=== PATIENT | male | born 1950 | race Caucasian/White ===

== ENCOUNTER 2016-07-21 11:46 | Inpatient (IN) | payer MEDICARE, OTHER ==
[~2016-07-21] VITALS: Ht 177.8 cm; Wt 181.7 kg
[2016-07-21] VITALS (8 sets, daily range): BP systolic 120–149; BP diastolic 62–94; PULSE 88–109; RESP 20–22; TEMP 98.3; O2SAT 98–100
--- NOTE | 2016-07-21 13:21 | PD ---
HPI Chief Complaint: Respiratory Symptoms Time Seen by Provider: 13:21 Travel History International Travel<30 days: No Contact w/Intl Traveler<30days: No Traveled to known affect area: No History of Present Illness HPI 65-year-old male with a history of CHF, hypertension, A. fib on Coumadin, CKD, CAD, ID and stroke who has chronic hypoxemic respiratory failure on 10 L BiPAP is brought to the emergency department from his long-term facility for evaluation of worsening shortness of breath, decreased oxygen saturation and weight gain. The patient states that his oxygen saturation is usually above 95 % but has been between 90-95% over the past 2 days. The patient states that he usually goes to [facility] and was admitted there recently for similar complaints. States that he requested to come to our hospital today because "that other hospital sucks." He denies chest pain, lightheadedness, dizziness, numbness or tingling, abdominal pain, vomiting, diarrhea. The patient is morbidly obese and is bed bound. His daughter is POA. No other complaints. PFSH Past Medical History Hx Anticoagulant Therapy: Yes (COUMADIN) Cardiovascular Problems: Yes Respiratory: Yes (COPD) Social History Tobacco Use: No Allergies-Medications (Allergen,Severity, Reaction): Coded Allergies: Heparin (Verified Allergy, Unknown, 07/21/16) Uncoded Allergies: CEFEPIME (Allergy, Unknown, 07/21/16) UNKNOWN Reported Meds & Prescriptions Reported Meds & Active Scripts Active Reported Fleet Enema Rectal (Sodium Phosphates Rectal) 7-19 Gm/118 Ml Enem 118 Ml RECTAL HS PRN Dulcolax Supp (Bisacodyl) 10 Mg Supp 10 Mg RECTAL DIRECTED PRN Milk of Magnesia Liq (Magnesium Hydroxide) 400 Mg/5 Ml Susp 30 Ml PO DIRECTED PRN Zostrix Arthritis Pain Relief Topical (Capsaicin) 0.025% Cream 1 Applic TOPICAL EACH SHIFT Xanax (Alprazolam) 0.5 Mg Tab 0.5 Mg PO BID Warfarin 4 Mg Tab 4 Mg PO HS Torsemide 20 Mg Tab 20 Mg PO DAILY Oxycodone (Oxycodone HCl) 5 Mg Tab 5 Mg PO Q6H PRN Metoprolol Tartrate 25 Mg Tab 12.5 Mg PO BID Levothyroxine (Levothyroxine Sodium) 25 Mcg Tab 25 Mcg PO DAILY Xopenex Neb (Levalbuterol HCl) 1.25 Mg/3 Ml Neb 1.25 Mg NEB TID NEB Tamsulosin (Tamsulosin HCl) 0.4 Mg Cap 0.4 Mg PO DAILY Vibramycin (Doxycycline Hyclate) 100 Mg Cap 100 Mg PO BID Colace (Docusate Sodium) 100 Mg Cap 100 Mg PO BID Dulcolax DR (Bisacodyl) 5 Mg Tabdr 10 Mg PO HS PRN Review of Systems Except as stated in HPI: all other systems reviewed are Neg Physical Exam Narrative GENERAL: Morbidly obese male in no acute distress. SKIN: Warm and dry. HEAD: Normocephalic and atraumatic. EYES: No injection, drainage, or hyphema noted. PERRLA. EOMI. ENT: No nasal drainage noted. Oropharynx is clear. NECK: Supple and the trachea is midline. CARDIOVASCULAR: Regular rate and rhythm. RESPIRATORY: Bipap in place. No accessory muscle use. Breath sounds decreased throughout. GASTROINTESTINAL: Abdomen is soft, non-tender, and nondistended. MUSCULOSKELETAL: Edematous extremities. No erythema or warmth. Patient has full range of motion without any signs of neurovascular compromise. NEUROLOGICAL: Awake, alert, and oriented. Normal speech and gait. Cranial nerves are grossly intact. Data Data Last Documented VS Vital Signs Date Time Temp Pulse Resp B/P Pulse Ox O2 Delivery O2 Flow Rate FiO2 07/21/16 14:11 100 BiPAP 10 07/21/16 14:00 88 22 132/62 07/21/16 12:56 98.3 Orders Electrocardiogram (07/21/16 ) Complete Blood Count With Diff (07/21/16 13:17) Comprehensive Metabolic Panel (07/21/16 13:17) B-Type Natriuretic Peptide (07/21/16 13:17) Act Partial Throm Time (Ptt) (07/21/16 13:17) Prothrombin Time / Inr (Pt) (07/21/16 13:17) Magnesium (Mg) (07/21/16 13:17) Troponin I (07/21/16 13:17) Arterial Blood Gas (Abg) (07/21/16 13:17) Iv Access Insert/Monitor (07/21/16 13:17) Ecg Monitoring (07/21/16 13:17) Oximetry (07/21/16 13:17) Oxygen Administration (07/21/16 13:17) Chest, Single Ap (07/21/16 13:17) Sodium Chloride 0.9% Flush (Ns Flush) (07/21/16 13:30) Ct Thorax/ Chest Wo Iv Contras (07/21/16 14:28) Lactic Acid Sepsis Protocol (07/21/16 15:58) Blood Culture (07/21/16 15:58) Piperacil-Tazo 4.5 Gm Premix (Zosyn 4.5 (07/21/16 15:58) Levofloxacin 750 Mg Premix Inj (Levaquin (07/21/16 16:00) Vancomycin Inj (Vancomycin Inj) (07/21/16 16:00) Alprazolam (Xanax) (07/21/16 21:00) Docusate Sodium (Colace) (07/21/16 21:00) Levothyroxine (Synthroid) (07/22/16 06:00) Metoprolol Tartrate (Lopressor) (07/21/16 21:00) Tamsulosin (Flomax) (07/22/16 09:00) Torsemide (Demadex) (07/22/16 09:00) Warfarin (Coumadin) (07/21/16 16:30) Furosemide Inj (Lasix Inj) (07/21/16 16:30) Pill Splitter (Pill Splitter) (07/21/16 16:30) Warfarin (Coumadin) Pt Teach (Coumadin B (07/21/16 16:45) Sodium Chloride 0.9% Flush (Ns Flush) (07/21/16 16:30) Sodium Chloride 0.9% Flush (Ns Flush) (07/21/16 21:00) Admit Order (Ed Use Only) (07/21/16 16:31) Piperacil-Tazo 4.5 Gm Premix (Zosyn 4.5 (07/21/16 22:00) Levofloxacin 750 Mg Premix Inj (Levaquin (07/22/16 09:00) Albuterol-Ipratropium Neb (Duoneb Neb) (07/21/16 22:00) Albuterol-Ipratropium Neb (Duoneb Neb) (07/21/16 16:30) Acetaminophen (Tylenol) (07/21/16 16:30) Ondansetron Inj (Zofran Inj) (07/21/16 16:30) Admit To Inpatient (07/21/16 ) Vital Signs (Adult) CHANTELLE.Q4H (07/21/16 16:25) Activity Oob Ad Nicole (07/21/16 16:25) Intake + Output CHANTELLE.Q8H (07/21/16 16:25) ^ Regrader / Telemetry (07/21/16 16:25) Diet Heart Healthy (07/21/16 Dinner) Resp Bipap / Cpap Non Invas Vt (07/21/16 ) Basic Metabolic Panel (Bmp) (07/22/16 06:00) Complete Blood Count With Diff (07/22/16 06:00) Inpatient Certification (07/21/16 ) Acetamin-Hydrocod 325-5 Mg ([place] 5-325 (07/21/16 16:45) Labs Laboratory Tests Test 07/21/16 07/21/16 07/21/16 13:30 13:36 14:10 B-Type Natriuretic Peptide 469 PG/ML Blood Gas Puncture Site LT RADIAL Blood Gas Patient Temperature 98.6 Blood Gas HCO3 22 mmol/L Blood Gas Base Excess -2.8 mmol/L Blood Gas Oxygen Saturation 94 % Arterial Blood pH 7.36 Arterial Blood Partial 40 mmHg Pressure CO2 Arterial Blood Partial 114 mmHG Pressure O2 Arterial Blood Oxygen Content 16.6 Vol % Arterial Blood 2.8 % Carboxyhemoglobin Arterial Blood Methemoglobin 1.8 % Blood Gas Hemoglobin 12.4 G/DL Oxygen Delivery Device PT ON HOME CPAP Blood Gas Liter Flow 10 L/M White Blood Count 9.2 TH/MM3 Red Blood Count 4.37 MIL/MM3 Hemoglobin 11.9 GM/DL Hematocrit 38.2 % Mean Corpuscular Volume 87.4 FL Mean Corpuscular Hemoglobin 27.3 PG Mean Corpuscular Hemoglobin 31.2 % Concent Red Cell Distribution Width 17.4 % Platelet Count 61 TH/MM3 Mean Platelet Volume 9.3 FL Neutrophils (%) (Auto) 82.1 % Lymphocytes (%) (Auto) 9.7 % Monocytes (%) (Auto) 6.0 % Eosinophils (%) (Auto) 1.5 % Basophils (%) (Auto) 0.7 % Neutrophils # (Auto) 7.6 TH/MM3 Lymphocytes # (Auto) 0.9 TH/MM3 Monocytes # (Auto) 0.6 TH/MM3 Eosinophils # (Auto) 0.1 TH/MM3 Basophils # (Auto) 0.1 TH/MM3 CBC Comment AUTO DIFF Differential Comment AUTO DIFF CONFIRMED Platelet Estimate LOW Platelet Morphology Comment NORMAL Ovalocytes 1+ Prothrombin Time 17.5 SEC Prothromb Time International 1.6 RATIO Ratio Activated Partial 28.1 SEC Thromboplast Time Sodium Level 141 MEQ/L Potassium Level 4.4 MEQ/L Chloride Level 110 MEQ/L Carbon Dioxide Level 22.0 MEQ/L Anion Gap 9 MEQ/L Blood Urea Nitrogen 48 MG/DL Creatinine 1.50 MG/DL Estimat Glomerular Filtration 47 ML/MIN Rate Random Glucose 109 MG/DL Calcium Level 8.1 MG/DL Magnesium Level 2.2 MG/DL Total Bilirubin 0.7 MG/DL Aspartate Amino Transf 11 U/L (AST/SGOT) Alanine Aminotransferase 28 U/L (ALT/SGPT) Alkaline Phosphatase 114 U/L Troponin I 0.05 NG/ML Total Protein 5.8 GM/DL Albumin 2.5 GM/DL [facility] Medical Decision Making Medical Screen Exam Complete: Yes Emergency Medical Condition: Yes Differential Diagnosis CHF exacerbation versus acute on chronic respiratory failure versus pneumonia versus pleural effusion versus CRISTOBAL Narrative Course 65-year-old male presents to the emergency department for evaluation of shortness of breath and weight gain. Patient is afebrile. He is initially tachycardic with a heart rate of 109 bpm, heart rate is normalized to 88 bpm. Otherwise vital signs are stable. He is on BiPAP and his oxygen saturation is at 100%. IV access is obtained, labs drawn and sent. CBC shows mild anemia with low platelets 69. This is consistent with prior records from June. CMP shows renal sufficiency within elevated creatinine of 1.50. Prior comparison from records shows creatinine was 4.25 06/29/16. Troponin is 0.05. BNP 465. Chest x-ray shows left lower lobe opacity. CT of the chest shows left lower lobe consolidation with bilateral pleural effusions. The patient was recently admitted to the hospital and therefore this is a hospital-acquired pneumonia. The patient is given Zosyn, vancomycin and Levaquin. He has remained stable here in the ED. He'll be admitted to medicine service. Of note, I did speak with the patient who states he is a DNR. He told me that he does not wish to be intubated or to have chest compressions. He states he would allow medical resuscitation such as vasopressors. I discussed the case with my attending physician Dr. Gallegos who is aware of the patients history, physical examination findings, and treatment plan. Physician Communication Physician Communication My attending physician Dr. Gallegos spoke with Dr. Wisdom [facility] who agrees to admit the patient to his service. Diagnosis Primary Impression: Hospital-acquired pneumonia Additional Impression: Chronic respiratory failure Qualified Code: J96.11 - Chronic respiratory failure with hypoxia Admitting Information Admitting Physician Requests: Admit Rebecca Beach Jul 21, 2016 13:21
[2016-07-21] MEDS ORDERED: SODIUM CHLORIDE 0.9% FLUSH 5 ML FLUSH IVF PRN (13:30)
[2016-07-21 13:47] LABS: BLOOD GAS BASE EXCESS -2.8 mmol/L (-2-2); BLOOD GAS CARBOXYHEMOGLOBIN 2.8 % (0-4); BLOOD GAS HCO3 22 mmol/L (22-26); BLOOD GAS METHEMOGLOBIN 1.8 % (0-2); BLOOD GAS O2 HGB SATURATION 94 % (90-100); BLOOD GAS OXYGEN CONTENT 16.6 Vol % (12.0-20.0); BLOOD GAS PCO2 40 mmHg (38-42); BLOOD GAS PO2 114 mmHG (61-120); BLOOD GAS TOTAL HGB 12.4 G/DL (12.0-16.0); CRITICAL VALUE NO; DRAW SITE LT RADIAL; LITER FLOW 10 L/M; NUMBER OF ARTERIAL PUNCTURES 1; OXYGEN DEVICE PT ON HOME CPAP; STAT YES; TEMP CORR TO 98.6
--- NOTE | 2016-07-21 13:58 | RADRPT ---
EXAM DATE/TIME: 07/21/2016 13:33 [facility] COMPARISON: No previous studies available for comparison. INDICATIONS : Short of breath. MEDICAL HISTORY : None. SURGICAL HISTORY : None. ENCOUNTER: Initial ACUITY: 1 day PAIN SCORE: 0/10 LOCATION: Bilateral chest FINDINGS: A single view of the chest demonstrates cardiomegaly. Bilateral mostly basilar airspace disease, left greater than right. No significant effusion. No pneumothorax. CONCLUSION: 1. Cardiomegaly with consolidation of the left lung base. Subsegmental airspace disease right lung ba se. No prior study for comparison. Raoul Gasca MD on July 21, 2016 at 13:55 Board Certified Radiologist. This report was verified electronically.
[2016-07-21 14:31] LABS: AUTOMATED NEUTROPHIL # 7.6 TH/MM3 (1.8-7.7); BASOPHIL # 0.1 TH/MM3 (0-0.2); BASOPHIL % 0.7 % (0.0-2.0); EOSINOPHIL # 0.1 TH/MM3 (0-0.4); EOSINOPHIL % 1.5 % (0.0-4.0); HEMATOCRIT 38.2 % (39.0-51.0); LYMPH % 9.7 % (9.0-44.0); LYMPHOCYTE # 0.9 TH/MM3 (1.0-4.8); MEAN CELL VOLUME 87.4 FL (80.0-100.0); MEAN CORPUSCULAR HEMOGLOBIN 27.3 PG (27.0-34.0); MEAN CORPUSCULAR HGB CONC 31.2 % (32.0-36.0); NEUT % 82.1 % (16.0-70.0); PLATELET COUNT 61 TH/MM3 (150-450); RED BLOOD COUNT 4.37 MIL/MM3 (4.50-5.90); RED CELL DISTRIBUTION WIDTH 17.4 % (11.6-17.2); WHITE BLOOD COUNT 9.2 TH/MM3 (4.0-11.0)
[2016-07-21 14:34] LABS: HEMO FLAGS AUTO DIFF
[2016-07-21 14:39] LABS: APTT (PATIENT) 28.1 SEC (24.3-30.1); INTERNATIONAL NORMALIZED RATIO 1.6 RATIO; PROTHROMBIN TIME - PATIENT 17.5 SEC (9.8-11.6)
[2016-07-21 14:42] LABS: ANION GAP 9 MEQ/L (5-15); AST (GOT) 11 U/L (15-37); BLOOD UREA NITROGEN 48 MG/DL (7-18); CHLORIDE 110 MEQ/L (98-107); GLOMERULAR FILTRATION RATE 47 ML/MIN (>89); MAGNESIUM 2.2 MG/DL (1.5-2.5); POTASSIUM 4.4 MEQ/L (3.5-5.1); SODIUM (NA) 141 MEQ/L (136-145)
[2016-07-21] MEDS ORDERED: TORS20TA PO (14:43)
[2016-07-21] MEDS ORDERED: LEVA3NEB12 NEB (14:43)
[2016-07-21] MEDS ORDERED: LEVO25TA4 PO (14:43)
[2016-07-21] MEDS ORDERED: TAMS0.4C4 PO (14:43)
[2016-07-21] MEDS ORDERED: ALPR.5 PO (14:43)
[2016-07-21] MEDS ORDERED: COLA100C3 PO (14:43)
[2016-07-21] MEDS ORDERED: WARF-20 PO (14:43)
[2016-07-21] MEDS ORDERED: DULC5TAB PO (14:43)
[2016-07-21] MEDS ORDERED: OXYC-392 PO (14:43)
[2016-07-21] MEDS ORDERED: ZOSTCRE TOPICAL (14:43)
[2016-07-21] MEDS ORDERED: VIBR100C PO (14:43)
[2016-07-21] MEDS ORDERED: METO25TA3 PO (14:43)
[2016-07-21] MEDS ORDERED: DULC10SU3 RECTAL (14:46)
[2016-07-21] MEDS ORDERED: MILKSUS PO (14:46)
[2016-07-21 14:47] LABS: ALKALINE PHOSPHATASE 114 U/L (45-117); ALT (GPT) 28 U/L (12-78); TOTAL BILIRUBIN ADULT 0.7 MG/DL (0.2-1.0)
[2016-07-21] MEDS ORDERED: FLEEENE3 RECTAL (14:48)
[2016-07-21 15:17] LABS: PLATELET ESTIMATE SMEAR LOW (NORMAL); PLATELET MORPHOLOGY NORMAL (NORMAL); SCAN/DIFF AUTO DIFF CONFIRMED
[2016-07-21 15:18] LABS: OVALOCYTES 1+ (NORMAL)
--- NOTE | 2016-07-21 15:51 | RADRPT ---
EXAM DATE/TIME: 07/21/2016 15:15 [facility] COMPARISON: No previous studies available for comparison. INDICATIONS : Short of breath. RADIATION DOSE: 31.93 CTDIvol (mGy) MEDICAL HISTORY : Chronic obstructive pulmonary disease. Congestive heart failure. Hypertension. Renal failure. SURGICAL HISTORY : None. ENCOUNTER: Initial ACUITY: 1 day PAIN SCALE: 0/10 LOCATION: chest TECHNIQUE: Volumetric scanning of the chest was performed. Using automated exposure control and adjustment of t he mA and/or kV according to patient size, radiation dose was kept as low as reasonably achievable to obtain optimal diagnostic quality images. FINDINGS: The exam demonstrates small bilateral effusions. There is consolidation throughout the left lower lob e. The examination also demonstrates a 3.0 x 1.9 cm pleural-based mass on the left as well. The heart is enlarged. No significant hilar or mediastinal adenopathy is evident. There is advanced a therosclerotic plaquing in the coronary arteries. The limited portions of upper abdomen visualized demonstrate fluid surrounding the spleen in the left upper quadrant. There degenerative changes throughout the spine. CONCLUSION: 1. Dense consolidation of the left lower lobe. 2. Small bilateral effusions. 3. 3.0 x 1.9 cm pleural-based nodule on the left. This is indeterminate by CT imaging. No hilar or me diastinal adenopathy is seen. 4. There is fluid in the left upper quadrant surrounding the spleen. The spleen appears mildly enlarg ed. 5. Advanced cardiomegaly. Girma Metzger MD on July 21, 2016 at 15:45 Board Certified Radiologist. This report was verified electronically.
[2016-07-21] MEDS ORDERED: PIPERACIL-TAZO 4.5 GM PREMIX 100 ML IV STA (15:58)
[2016-07-21] MEDS ORDERED: LEVOFLOXACIN 750 MG PREMIX INJ 150 ML IV ONE (16:00)
[2016-07-21] MEDS ORDERED: VANCOMYCIN INJ 1,000 MG in SODIUM CHLOR 0.9% 250 ML INJ 250 ML IV ONE (16:00)
[2016-07-21] MEDS ORDERED: PILL SPLITTER OTHER PRN (16:30)
[2016-07-21] MEDS ORDERED: ONDANSETRON HCL 4 MG/2 ML VIAL IV PRN (16:30)
[2016-07-21] MEDS ORDERED: ACETAMINOPHEN 325 MG TAB PO PRN (16:30)
[2016-07-21] MEDS ORDERED: FUROSEMIDE 40 MG/4 ML VIAL IV PUSH ONE (16:30)
--- NOTE | 2016-07-21 18:36 | HHI.HP ---
HPI Service [facility] Hospitalists Primary Care Physician Non-Staff Admission Diagnosis Hospital Acquired Pneumonia, Chronic Respiratory Failure Diagnoses: Chief Complaint: SOB, weight gain Travel History International Travel<30 Days: No Contact w/Intl Traveler <30 Da: No Traveled to Known Affected Are: No History of Present Illness 65-year-old male with history of CAD with stents, atrial fibrillation on Coumadin, CHF, HTN, CKD stage III, NINO on BiPAP at night, chronic respiratory failure on home O2, presents from [facility] for worsening shortness of breath , weight gain, and decreased O2 saturations. Patient was recently admitted to [facility] on 06/29/16 for pneumonia and acute renal failure. The patient reports he was treated with IV antibiotics, he refused dialysis for his acute renal failure, and he was discharged back to [facility]. He overall has felt well however states over the past 3 weeks he has noticed worsening weight gain, previously weighed 365, now over 400 pounds. He started to notice worsening shortness of breath 2 days ago. Denies any fevers/chills, cough, or chest pains. His O2 saturation at the [facility] was around 90% over the past few days, when normally it is >95%. He asked to be admitted to [facility] [place] as he does not want to go to [facility]. Since his arrival to the ER, CXR showed LLL opacity, CT chest showed LLL consolidation with b/l pleural effusions. He has been given IV Zosyn, Vanco, and Levaquin for hospital acquired pneumonia. He has been placed on his own bipap with O2 saturations now 100%. The patient denies any diagnosis of lung disease, when asked about COPD, he states "not really". He has only been seeing a attendant sales at [facility], does not recall the name. He also does not know who is airplane dispatcher is because he states it keeps changing. Review of Systems Constitutional: COMPLAINS OF: Weight gain, DENIES: Diaphoretic episodes, Fever , Chills, Dizziness Endocrine: DENIES: Polydipsia, Polyuria, Polyphagia Eyes: DENIES: Blurred vision, Vision loss, Double Vision Ears, nose, mouth, throat: DENIES: Throat pain, Hoarseness, Odynophagia Respiratory: COMPLAINS OF: Shortness of breath, DENIES: Cough, Wheezing Cardiovascular: COMPLAINS OF: Lower Extremity Edema, DENIES: Chest pain, Palpitations, Orthopnea Gastrointestinal: DENIES: Abdominal pain, Constipation, Diarrhea, Nausea, Vomiting Genitourinary: DENIES: Urinary frequency, Urgency, Dysuria Musculoskeletal: COMPLAINS OF: Back pain, DENIES: Neck pain Integumentary: DENIES: Pruritus, Rash Hematologic/lymphatic: DENIES: Bruising, Lymphadenopathy Immunologic/allergic: DENIES: Eczema, Urticaria Neurologic: DENIES: Abnormal gait, Headache, Localized weakness, Paresthesias Psychiatric: DENIES: Anxiety, Depression Past Family Social History Past Medical History CAD with stents CHF HTN CKD stage III NINO on BiPAP at night chronic respiratory failure on home O2 Atrial fibrillation on coumadin Hypothyroidism Past Surgical History Cardiac catheterization with stent placement Colonoscopy 2 years ago Reported Medications Fleet Enema Rectal (Sodium Phosphates Rectal) 7-19 Gm/118 Ml Enem 118 Ml RECTAL HS PRN Dulcolax Supp (Bisacodyl) 10 Mg Supp 10 Mg RECTAL DIRECTED PRN Milk of Magnesia Liq (Magnesium Hydroxide) 400 Mg/5 Ml Susp 30 Ml PO DIRECTED PRN Zostrix Arthritis Pain Relief Topical (Capsaicin) 0.025% Cream 1 Applic TOPICAL EACH SHIFT Xanax (Alprazolam) 0.5 Mg Tab 0.5 Mg PO BID Warfarin 4 Mg Tab 4 Mg PO HS Torsemide 20 Mg Tab 20 Mg PO DAILY Oxycodone (Oxycodone HCl) 5 Mg Tab 5 Mg PO Q6H PRN Metoprolol Tartrate 25 Mg Tab 12.5 Mg PO BID Levothyroxine (Levothyroxine Sodium) 25 Mcg Tab 25 Mcg PO DAILY Xopenex Neb (Levalbuterol HCl) 1.25 Mg/3 Ml Neb 1.25 Mg NEB TID NEB Tamsulosin (Tamsulosin HCl) 0.4 Mg Cap 0.4 Mg PO DAILY Vibramycin (Doxycycline Hyclate) 100 Mg Cap 100 Mg PO BID Colace (Docusate Sodium) 100 Mg Cap 100 Mg PO BID Dul[address]ax [address] (Bisacodyl) 5 Mg Tabdr 10 Mg PO HS PRN Allergies: Coded Allergies: Heparin (Verified Allergy, Unknown, 07/21/16) Uncoded Allergies: CEFEPIME (Allergy, Unknown, 07/21/16) UNKNOWN Active Ordered Medications Current Medications Medications (Trade) Dose Ordered Sig/Olivia Route Start Time Stop Time Status Last Admin (NS Flush) 2 ml UNSCH PRN IVF 07/21/16 13:30 07/21/16 17:07 (Xanax) 0.5 mg BID PO 07/21/16 21:00 (Colace) 100 mg BID PO 07/21/16 21:00 (Synthroid) 25 mcg DAILY@06 PO 07/22/16 06:00 (Lopressor) 12.5 mg BID PO 07/21/16 21:00 (Flomax) 0.4 mg DAILY PO 07/22/16 09:00 (Demadex) 20 mg DAILY PO 07/22/16 09:00 (Coumadin) 4 mg DAILY@1600 PO 07/21/16 16:30 (Pill Splitter) 1 ea UNSCH PRN OTHER 07/21/16 16:30 (NS Flush) 2 ml UNSCH PRN IV FLUSH 07/21/16 16:30 IV Flush 2 ml 2 ml BID IV FLUSH 07/21/16 21:00 Piperacillin Sod/ Tazobactam Sod 100 ml @ 200 mls/hr Q6H IV 07/22/16 00:00 (Levaquin 750 Mg Premix Inj) 150 ml @ 100 mls/hr Q24H IV 07/22/16 17:00 (Tylenol) 650 mg Q4H PRN PO 07/21/16 16:30 (Zofran Inj) 4 mg Q6H PRN IV 07/21/16 16:30 (Hardy 5-325 Mg) 1 tab Q4H PRN PO 07/21/16 16:45 Family History Mother with heart disease, Father with unknown medical problems, Social History Prior tobacco use, smoked 1.5 PPD for 20+years, quit 20years ago Denies any alcohol or illicit drug use Has been mostly nonambulatory since last hospitalization in Jun 2016, previously was able to ambulate Physical Exam Vital Signs Vital Signs Date Time Temp Pulse Resp B/P Pulse Ox O2 Delivery O2 Flow Rate FiO2 07/21/16 14:11 100 BiPAP 10 07/21/16 14:11 100 BiPAP 10 07/21/16 14:00 88 22 132/62 100 BiPAP 10 07/21/16 13:00 22 100 BiPAP 10 07/21/16 12:56 98.3 109 20 127/78 99 Physical Exam GENERAL: Well-nourished, well-developed morbidly obese male patient in NAD. On Bipap. SKIN: Warm and dry. No rash. Anasarca. HEAD: Normocephalic. Atraumatic. EYES: Pupils equal and round. No scleral icterus. No injection or drainage. ENT: No nasal bleeding or discharge. Mucous membranes pink and moist. NECK: Supple. Trachea midline. Extremely large neck circumference. CARDIOVASCULAR: Regular rate and rhythm. S1, S2 noted. No murmur appreciated. RESPIRATORY: No accessory muscle use. Breath sounds diminished throughout. Breath sounds equal bilaterally. GASTROINTESTINAL: Abdomen soft, non-tender, nondistended. Normoactive bowel sounds x4. Lower abdominal edema. GENITOURINARY: diffuse scrotal edema. MUSCULOSKELETAL: No obvious deformities. 3+ bilateral lower extremity pitting edema. NEUROLOGICAL: Awake and alert. No obvious cranial nerve deficits. Motor grossly within normal limits. Moving all extremities spontaneously. Normal speech. PSYCHIATRIC: Appropriate mood and affect; insight and judgment normal. Laboratory Laboratory Tests Test 07/21/16 07/21/16 07/21/16 07/21/16 13:30 13:36 14:10 16:30 B-Type Natriuretic Peptide 469 Blood Gas Puncture Site LT RADIAL Blood Gas Patient Temperature 98.6 Blood Gas HCO3 22 Blood Gas Base Excess -2.8 Blood Gas Oxygen Saturation 94 Arterial Blood pH 7.36 Arterial Blood Partial 40 Pressure CO2 Arterial Blood Partial 114 Pressure O2 Arterial Blood Oxygen Content 16.6 Arterial Blood 2.8 Carboxyhemoglobin Arterial Blood Methemoglobin 1.8 Blood Gas Hemoglobin 12.4 Oxygen Delivery Device PT ON HOME CPAP Blood Gas Liter Flow 10 White Blood Count 9.2 Red Blood Count 4.37 Hemoglobin 11.9 Hematocrit 38.2 Mean Corpuscular Volume 87.4 Mean Corpuscular Hemoglobin 27.3 Mean Corpuscular Hemoglobin 31.2 Concent Red Cell Distribution Width 17.4 Platelet Count 61 Mean Platelet Volume 9.3 Neutrophils (%) (Auto) 82.1 Lymphocytes (%) (Auto) 9.7 Monocytes (%) (Auto) 6.0 Eosinophils (%) (Auto) 1.5 Basophils (%) (Auto) 0.7 Neutrophils # (Auto) 7.6 Lymphocytes # (Auto) 0.9 Monocytes # (Auto) 0.6 Eosinophils # (Auto) 0.1 Basophils # (Auto) 0.1 CBC Comment AUTO DIFF Differential Comment AUTO DIFF CONFIRMED Platelet Estimate LOW Platelet Morphology Comment NORMAL Ovalocytes 1+ Prothrombin Time 17.5 Prothromb Time International 1.6 Ratio Activated Partial 28.1 Thromboplast Time Sodium Level 141 Potassium Level 4.4 Chloride Level 110 Carbon Dioxide Level 22.0 Anion Gap 9 Blood Urea Nitrogen 48 Creatinine 1.50 Estimat Glomerular Filtration 47 Rate Random Glucose 109 Calcium Level 8.1 Magnesium Level 2.2 Total Bilirubin 0.7 Aspartate Amino Transf 11 (AST/SGOT) Alanine Aminotransferase 28 (ALT/SGPT) Alkaline Phosphatase 114 Troponin I 0.05 Total Protein 5.8 Albumin 2.5 Lactic Acid Level 1.2 Date/Time Procedure Status Source Growth 07/21/16 14:23 Aerobic Blood Culture Received Blood Peripheral Pending 07/21/16 14:23 Anaerobic Blood Culture Received Blood Peripheral Pending Result Diagram: 07/21/16 1410 07/21/16 1410 Imaging Last Impressions Chest CT 07/21/16 1428 Signed Impressions: Service Date/Time: July 15:15 - CONCLUSION: 1. Dense consolidation of the left lower lobe. 2. Small bilateral effusions. 3. 3.0 x 1.9 cm pleural-based nodule on the left. This is indeterminate by CT imaging. No hilar or mediastinal adenopathy is seen. 4. There is fluid in the left upper quadrant surrounding the spleen. The spleen appears mildly enlarged. 5. Advanced cardiomegaly. Girma Metzger MD Chest X-Ray 07/21/16 1317 Signed Impressions: Service Date/Time: July 13:33 - CONCLUSION: 1. Cardiomegaly with consolidation of the left lung base. Subsegmental airspace disease right lung base. No prior study for comparison. Raoul Gasca MD Assessment and Plan Problem List: (1) Hospital-acquired pneumonia ICD Code: J18.9 Status: Acute (2) Acute and chronic respiratory failure ICD Code: J96.20 Status: Acute (3) CHF exacerbation ICD Code: I50.9 Status: Acute Assessment and Plan 65-year-old male with history of CAD with stents, atrial fibrillation on Coumadin, CHF, HTN, CKD stage III, NINO on BiPAP at night, chronic respiratory failure on home O2, presents from [facility] for worsening shortness of breath , weight gain, and decreased O2 saturations. Acute on Chronic Respiratory Failure: O2 dependent. Likely multifactorial secondary to pneumonia, CHF exacerbation, obesity hypoventilation syndrome & NINO. Patient on chronic O2. He denies hx of lung disease/COPD/emphysema/asthma. Imaging reviewed by me: CXR showed LLL opacity, CT chest showed LLL consolidation with b/l pleural effusions. See treatment below. Hospital Acquired Pneumonia: patient with recent hospitalization 3 weeks ago. Imaging as above. S/p IV Zosyn, Vanco, and Levaquin. Continue on IV Zosyn and Levaquin. Duonebs q6h olivia and q4h prn. Continue bipap. Acute on Chronic CHF: no echo on file. BNP elevated. Imaging with b/l pleural effusions. 3+ edema on exam. Given IV Lasix 40mg x1. Continue on IV Bumex 1mg bid. Monitor Is&Os. Consider checking echocardiogram. NINO: continue patient's bipap. RT consult. CAD with stents, HTN, atrial fibrillation: chronic, stable, continue patient's metoprolol, Coumadin. INR subtherapeutic at 1.6. Monitor daily INR. CKD stage III: previously Cr 4.29 on 06/29/16 while admitted to for acute renal failure. Currently Cr 1.5. Unknown true baseline. Caution with diuresis. Hypothyroidism: chronic, stable, continue patient's levothyroxine Morbid Obesity: BMI 59. Need to drug abuse counselor on weight reduction. Pulmonary Nodule: seen on chest CT. Outpatient follow up with pulmonology. Hale Catheter: patient reports he's had this for years. Continue Hale. DVT Prophylaxis: on Coumadin Written by Renetta Neri, acting as scribe for Dr. Wisdom on 07/21/16 at 18:28. The documentation accurately reflects the work performed [id number] by me on at 1828. Code Status DNR Discussed Condition With Patient, PSYCHIATRIC THERAPIST, ER PA Physician Certification 2 Midnight Certification Type: Admission for Inpatient Services Order for Inpatient Services The services are ordered in accordance with Medicare regulations or non- Medicare payer requirements, as applicable. In the case of services not specified as inpatient-only, they are appropriately provided as inpatient services in accordance with the 2-midnight benchmark. Estimated LOS (days): 3 days is the estimated time the patient will need to remain in the hospital, assuming treatment plan goals are met and no additional complications. Post-Hospital Plan: SNF Renetta Neri PA-C Jul 21, 2016 18:36 Piero Wisdom MD Jul 21, 2016 19:54
[2016-07-21] MEDS: SODIUM CHLORIDE 0.9% FLUSH 5 ML FLUSH IV FLUSH PRN (18:37)
[2016-07-21] MEDS: WARFARIN SOD 4 MG TAB PO SCH (18:39)
[2016-07-21] MEDS: ACETAMINOPHEN/HYDROcodone 325 MG/5 MG TAB PO PRN (20:08)
[2016-07-21] MEDS: RESP: ALBUTEROL 2.5 MG/IPRATROPIUM 0.5 MG NEB (SCH) INH (22:00)
[2016-07-22] VITALS (8 sets, daily range): BP systolic 95–131; BP diastolic 56–71; PULSE 78–115; RESP 16–20; TEMP 96.4–98.4; O2SAT 96–99
[2016-07-22] MEDS: METOPROLOL TARTRATE 25 MG TAB PO SCH ×3 (01:33→20:24)
[2016-07-22] MEDS: DOCUSATE SODIUM 100 MG CAP PO SCH ×3 (01:33→20:24)
[2016-07-22] MEDS: ALPRAZolam 0.5 MG TAB PO SCH ×3 (01:34→20:12)
[2016-07-22] MEDS: ACETAMINOPHEN/HYDROcodone 325 MG/5 MG TAB PO PRN ×3 (01:34→20:12)
[2016-07-22] MEDS: PIPERACIL-TAZO 4.5 GM PREMIX 100 ML IV SCH ×5 (01:35→23:49)
[2016-07-22] MEDS: SODIUM CHLORIDE 0.9% FLUSH 5 ML FLUSH IV FLUSH SCH ×3 (02:01→20:12)
[2016-07-22] MEDS: RESP: ALBUTEROL 2.5 MG/IPRATROPIUM 0.5 MG NEB (SCH) INH ×4 (03:56→20:00)
[2016-07-22 06:15] LABS: AUTOMATED NEUTROPHIL # 6.3 TH/MM3 (1.8-7.7); BASOPHIL % 0.3 % (0.0-2.0); EOSINOPHIL # 0.1 TH/MM3 (0-0.4); EOSINOPHIL % 1.6 % (0.0-4.0); HEMATOCRIT 39.3 % (39.0-51.0); LYMPH % 10.4 % (9.0-44.0); LYMPHOCYTE # 0.8 TH/MM3 (1.0-4.8); MEAN CELL VOLUME 88.9 FL (80.0-100.0); MEAN CORPUSCULAR HEMOGLOBIN 27.6 PG (27.0-34.0); MEAN CORPUSCULAR HGB CONC 31.1 % (32.0-36.0); MONO % 7.5 % (0.0-8.0); NEUT % 80.2 % (16.0-70.0); PLATELET COUNT 50 TH/MM3 (150-450); RED BLOOD COUNT 4.42 MIL/MM3 (4.50-5.90); RED CELL DISTRIBUTION WIDTH 17.2 % (11.6-17.2); WHITE BLOOD COUNT 7.9 TH/MM3 (4.0-11.0)
[2016-07-22 06:22] LABS: HEMO FLAGS AUTO DIFF
[2016-07-22 06:34] LABS: BICARBONATE 27.7 MEQ/L (21.0-32.0); POTASSIUM 4.5 MEQ/L (3.5-5.1)
[2016-07-22] MEDS: LEVOTHYROXINE SODIUM 25 MCG TAB PO SCH (06:52)
[2016-07-22 07:46] LABS: KERATOCYTES OCC (NORMAL); OVALOCYTES 1+ (NORMAL); PLATELET ESTIMATE SMEAR RARE (NORMAL); PLATELET MORPHOLOGY NORMAL (NORMAL); SCAN/DIFF AUTO DIFF CONFIRMED
[2016-07-22] MEDS: BUMETANIDE INJ 1 MG/4 ML VIAL IV PUSH SCH ×2 (08:52→20:12)
[2016-07-22] MEDS: TAMSULOSIN HCL 0.4 MG CAP PO SCH (08:52)
--- NOTE | 2016-07-22 14:28 | EKG ---
Date Performed: 07/21/2016 Time Performed: 13:36:21 PTAGE: 65 years EKG: ATRIAL FIBRILLATION INDETERMINATE AXIS RIGHT BUNDLE BRANCH BLOCK POSSIBLE ANTERIOR MYOCARDI AL INFARCTION MODERATE T-WAVE ABNORMALITY, CONSIDER LATERAL ISCHEMIA ABNORMAL ECG NO PREVIOUS TRACING DOCTOR: Juana Tipton Interpretating Date/Time 07/22/2016 14:22:30
[2016-07-22] MEDS ORDERED: LEVOFLOXACIN 750 MG PREMIX INJ 150 ML IV SCH (17:00)
[2016-07-22] MEDS: WARFARIN SOD 4 MG TAB PO SCH (17:05)
--- NOTE | 2016-07-22 18:16 | HHI.PR ---
Subjective Remarks Patient reports that he is feeling better today. He was able to come off the BiPAP earlier today. Objective Vitals Vital Signs Date Time Temp Pulse Resp B/P Pulse Ox O2 Delivery O2 Flow Rate FiO2 07/22/16 14:48 92 16 122/57 96 Room Air 07/22/16 10:43 83 18 122/71 99 07/22/16 10:00 97 BiPAP 10.00 07/22/16 06:50 85 20 98 CPAP 07/22/16 06:45 98.4 78 20 95/56 96 BiPAP 07/22/16 06:15 18 07/22/16 01:41 97.4 94 18 131/58 98 BiPAP 07/21/16 23:00 98 BiPAP 10.00 I/O 07/21/16 07/21/16 07/21/16 07/22/16 07/22/16 07/22/16 07:00 15:00 23:00 07:00 15:00 23:00 Output Total 1000 ml 2400 ml 2000 ml Balance -1000 ml -2400 ml -2000 ml Output Urine Total 1000 ml 2400 ml 2000 ml # Voids 0 Result Diagram: 07/22/16 0545 07/22/16 0545 Imaging Last Impressions Chest CT 07/21/16 1428 Signed Impressions: Service Date/Time: July 15:15 - CONCLUSION: 1. Dense consolidation of the left lower lobe. 2. Small bilateral effusions. 3. 3.0 x 1.9 cm pleural-based nodule on the left. This is indeterminate by CT imaging. No hilar or mediastinal adenopathy is seen. 4. There is fluid in the left upper quadrant surrounding the spleen. The spleen appears mildly enlarged. 5. Advanced cardiomegaly. Girma Metzger MD Chest X-Ray 07/21/16 1317 Signed Impressions: Service Date/Time: July 13:33 - CONCLUSION: 1. Cardiomegaly with consolidation of the left lung base. Subsegmental airspace disease right lung base. No prior study for comparison. Raoul Gasca MD Objective Remarks GENERAL: Morbidly obese male CARDIOVASCULAR: Normal rate and regular rhythm without murmurs, gallops, or rubs. RESPIRATORY: Poor air movement. Could not appreciate wheezing or rhonchi. GASTROINTESTINAL: Abdomen morbidly obese, nontender. Normal active bowel sounds MUSCULOSKELETAL: Extremities 2+ bilateral lower extremity edema and chronic venous stasis changes. NEURO: Alert & Oriented. Moves all ext x4 PSYCH: Appropriate mood and affect. A/P Problem List: (1) Hospital-acquired pneumonia ICD Code: J18.9 Status: Acute (2) Acute and chronic respiratory failure ICD Code: J96.20 Status: Acute (3) CHF exacerbation ICD Code: I50.9 Status: Acute Assessment and Plan 65-year-old male with history of CAD with stents, atrial fibrillation on Coumadin, CHF, HTN, CKD stage III, NINO on BiPAP at night, chronic respiratory failure on home O2, presents from [facility] for worsening shortness of breath , weight gain, and decreased O2 saturations. Acute on Chronic Respiratory Failure: O2 dependent. Likely multifactorial secondary to pneumonia, CHF exacerbation, obesity hypoventilation syndrome & NINO. Patient on chronic O2. He denies hx of lung disease/COPD/emphysema/asthma. Imaging reviewed by me: CXR showed LLL opacity, CT chest showed LLL consolidation with b/l pleural effusions. See treatment below. - Improving today Hospital Acquired Pneumonia: patient with recent hospitalization 3 weeks ago. Imaging as above. S/p IV Zosyn, Vanco, and Levaquin. Continue on IV Zosyn and Levaquin. Duonebs q6h braydon and q4h prn. Continue bipap. Acute on Chronic CHF: no echo on file. BNP elevated. Imaging with b/l pleural effusions. 3+ edema on exam. Given IV Lasix 40mg x1. Continue on IV Bumex 1mg bid. Monitor Is&Os. Check echocardiogram. NINO: continue patient's bipap at night CAD with stents, HTN, atrial fibrillation: chronic, stable, continue patient's metoprolol, Coumadin. Monitor daily INR. CKD stage III: previously Cr 4.29 on 06/29/16 while admitted to for acute renal failure. Slight increase in creatinine. Caution with diuresis. Hypothyroidism: chronic, stable, continue patient's levothyroxine Morbid Obesity: BMI 59. Patient is nonambulatory for this past month or so. Pulmonary Nodule: seen on chest CT. Outpatient follow up with pulmonology. Hale Catheter: patient reports he's had this for years. Continue Hale. DVT Prophylaxis: on Coumadin Discharge Planning Continue current treatment. Piero Wisdom MD Jul 22, 2016 18:16
[2016-07-23] VITALS (10 sets, daily range): BP systolic 90–105; BP diastolic 46–64; PULSE 64–114; RESP 16–21; TEMP 95.1–98.3; O2SAT 93–100
[2016-07-23] MEDS: RESP: ALBUTEROL 2.5 MG/IPRATROPIUM 0.5 MG NEB (PRN) INH (01:18)
[2016-07-23] MEDS: ACETAMINOPHEN/HYDROcodone 325 MG/5 MG TAB PO PRN ×2 (02:16→23:55)
[2016-07-23] MEDS: PIPERACIL-TAZO 4.5 GM PREMIX 100 ML IV SCH ×4 (04:28→23:55)
[2016-07-23] MEDS: LEVOTHYROXINE SODIUM 25 MCG TAB PO SCH (04:28)
[2016-07-23] MEDS: RESP: ALBUTEROL 2.5 MG/IPRATROPIUM 0.5 MG NEB (SCH) INH ×4 (05:56→20:27)
[2016-07-23 06:58] LABS: BICARBONATE 27.7 MEQ/L (21.0-32.0); POTASSIUM 4.1 MEQ/L (3.5-5.1)
[2016-07-23 07:02] LABS: HEMATOCRIT 36.9 % (39.0-51.0); MEAN CELL VOLUME 87.3 FL (80.0-100.0); MEAN CORPUSCULAR HEMOGLOBIN 27.7 PG (27.0-34.0); MEAN CORPUSCULAR HGB CONC 31.7 % (32.0-36.0); PLATELET COUNT 50 TH/MM3 (150-450); RED BLOOD COUNT 4.22 MIL/MM3 (4.50-5.90); RED CELL DISTRIBUTION WIDTH 17.4 % (11.6-17.2); WHITE BLOOD COUNT 7.8 TH/MM3 (4.0-11.0)
[2016-07-23 07:07] LABS: REVIEW FLAG FINAL
[2016-07-23 07:08] LABS: INTERNATIONAL NORMALIZED RATIO 2.2 RATIO; PROTHROMBIN TIME - PATIENT 25.6 SEC (9.8-11.6)
[2016-07-23] MEDS: DOCUSATE SODIUM 100 MG CAP PO SCH ×2 (09:00→21:00)
[2016-07-23] MEDS: TORSEMIDE 20 MG TAB PO SCH (09:00)
[2016-07-23] MEDS: METOPROLOL TARTRATE 25 MG TAB PO SCH ×2 (09:00→21:00)
--- NOTE | 2016-07-23 09:58 | HHI.PR ---
Subjective Remarks Patient reports that he is feeling slightly better. Tolerating nasal cannula. She is concerned about having too much fluid on his body. Renal function slightly worse. Objective Vitals Vital Signs Date Time Temp Pulse Resp B/P Pulse Ox O2 Delivery O2 Flow Rate FiO2 07/23/16 08:00 95.1 108 21 97/46 99 07/23/16 04:00 96.9 114 16 102/62 96 07/23/16 01:19 95 BiPAP 4.00 07/23/16 00:00 98.3 64 17 105/60 93 07/22/16 23:00 115 07/22/16 22:20 96.4 07/22/16 21:12 18 07/22/16 18:40 97.3 99 20 99/57 98 07/22/16 14:48 92 16 122/57 96 Room Air 07/22/16 10:43 83 18 122/71 99 07/22/16 10:00 97 BiPAP 10.00 I/O 07/22/16 07/22/16 07/22/16 07/23/16 07/23/16 07/23/16 07:00 15:00 23:00 07:00 15:00 23:00 Intake Total 480 ml Output Total 2400 ml 2000 ml 700 ml Balance -2400 ml -2000 ml -220 ml Intake Oral 480 ml Output Urine Total 2400 ml 2000 ml 700 ml # Bowel Movements 1 Result Diagram: 07/23/16 0535 07/23/16 0535 Objective Remarks GENERAL: Morbidly obese male CARDIOVASCULAR: Normal rate and regular rhythm without murmurs, gallops, or rubs. RESPIRATORY: Poor air movement. Could not appreciate wheezing or rhonchi. GASTROINTESTINAL: Abdomen morbidly obese, nontender. Normal active bowel sounds MUSCULOSKELETAL: Extremities 2+ bilateral lower extremity edema and chronic venous stasis changes. Some weeping. NEURO: Alert & Oriented. Moves all ext x4 PSYCH: Appropriate mood and affect. A/P Problem List: (1) Hospital-acquired pneumonia ICD Code: J18.9 Status: Acute (2) Acute and chronic respiratory failure ICD Code: J96.20 Status: Acute (3) CHF exacerbation ICD Code: I50.9 Status: Acute Assessment and Plan 65-year-old male with history of CAD with stents, atrial fibrillation on Coumadin, CHF, HTN, CKD stage III, NINO on BiPAP at night, chronic respiratory failure on home O2, presents from [facility] for worsening shortness of breath , weight gain, and decreased O2 saturations. Acute on Chronic Respiratory Failure: O2 dependent. Likely multifactorial secondary to pneumonia, CHF exacerbation, obesity hypoventilation syndrome & NINO. Patient on chronic O2. He denies hx of lung disease/COPD/emphysema/asthma. Imaging reviewed by me: CXR showed LLL opacity, CT chest showed LLL consolidation with b/l pleural effusions. See treatment below. - Improving today but not close to baseline yet. Hospital Acquired Pneumonia: patient with recent hospitalization 3 weeks ago. Imaging as above. S/p IV Zosyn, Vanco, and Levaquin. Continue on IV Zosyn and Levaquin. Duonebs q6h braydon and q4h prn. Continue bipap. Acute on Chronic CHF: no echo on file. BNP elevated. Imaging with b/l pleural effusions. 3+ edema on exam. Given IV Lasix 40mg x1. Given drop in renal function will decrease Bumex to 1 mg IV daily. Monitor Is&Os. Check echocardiogram. NINO: continue patient's bipap at night CAD with stents, HTN, atrial fibrillation: chronic, stable, continue patient's metoprolol, Coumadin. Monitor daily INR. CKD stage III: previously Cr 4.29 on 06/29/16 while admitted to for acute renal failure. Renal function slightly worse today, probably secondary to diuretics. Repeat labs in a.m.. Caution with diuresis. Hypothyroidism: chronic, stable, continue patient's levothyroxine Morbid Obesity: BMI 59. Patient is nonambulatory for this past month or so. Consult PT. Pulmonary Nodule: seen on chest CT. Outpatient follow up with pulmonology. Hale Catheter: patient reports he's had this for years. Continue Hale. DVT Prophylaxis: on Coumadin Discharge Planning Continue current treatment. Possible DC tomorrow if stable. Piero Wisdom MD Jul 23, 2016 09:58
[2016-07-23] MEDS: TAMSULOSIN HCL 0.4 MG CAP PO SCH (10:47)
[2016-07-23] MEDS: ALPRAZolam 0.5 MG TAB PO SCH ×2 (10:47→21:00)
[2016-07-23] MEDS: SODIUM CHLORIDE 0.9% FLUSH 5 ML FLUSH IV FLUSH SCH ×2 (10:47→21:00)
[2016-07-23] MEDS: WARFARIN SOD 4 MG TAB PO SCH ×2 (16:00→16:55)
[2016-07-23] MEDS ORDERED: BUMETANIDE INJ 1 MG/4 ML VIAL IV PUSH ONE (19:00)
[2016-07-24] VITALS (8 sets, daily range): BP systolic 87–118; BP diastolic 58–73; PULSE 79–112; RESP 19–21; TEMP 96–98; O2SAT 92–98
[2016-07-24] MEDS: RESP: ALBUTEROL 2.5 MG/IPRATROPIUM 0.5 MG NEB (SCH) INH ×4 (04:05→21:05)
[2016-07-24] MEDS: LEVOTHYROXINE SODIUM 25 MCG TAB PO SCH (05:22)
[2016-07-24] MEDS: PIPERACIL-TAZO 4.5 GM PREMIX 100 ML IV SCH ×3 (05:22→19:10)
[2016-07-24 05:57] LABS: HEMATOCRIT 37.7 % (39.0-51.0); MEAN CELL VOLUME 86.4 FL (80.0-100.0); MEAN CORPUSCULAR HEMOGLOBIN 27.4 PG (27.0-34.0); MEAN CORPUSCULAR HGB CONC 31.7 % (32.0-36.0); PLATELET COUNT 45 TH/MM3 (150-450); RED BLOOD COUNT 4.36 MIL/MM3 (4.50-5.90); WHITE BLOOD COUNT 8.7 TH/MM3 (4.0-11.0)
[2016-07-24 06:08] LABS: BICARBONATE 27.2 MEQ/L (21.0-32.0); POTASSIUM 4.5 MEQ/L (3.5-5.1)
[2016-07-24 06:10] LABS: INTERNATIONAL NORMALIZED RATIO 2.1 RATIO; PROTHROMBIN TIME - PATIENT 23.7 SEC (9.8-11.6); REVIEW FLAG FINAL
[2016-07-24] MEDS: TAMSULOSIN HCL 0.4 MG CAP PO SCH (08:35)
[2016-07-24] MEDS: ALPRAZolam 0.5 MG TAB PO SCH ×2 (08:35→21:00)
[2016-07-24] MEDS: METOPROLOL TARTRATE 25 MG TAB PO SCH ×2 (08:37→21:00)
[2016-07-24] MEDS: TORSEMIDE 20 MG TAB PO SCH (08:37)
[2016-07-24] MEDS: DOCUSATE SODIUM 100 MG CAP PO SCH ×2 (08:38→21:00)
[2016-07-24] MEDS: SODIUM CHLORIDE 0.9% FLUSH 5 ML FLUSH IV FLUSH SCH ×2 (08:38→21:00)
--- NOTE | 2016-07-24 11:40 | HHI.PR ---
Subjective Remarks Patient had an acute episode of shortness of breath earlier. He improved after breathing treatment and Xanax. He still complained of feeling fluid overloaded. Scrotum still swollen. He states this is not his baseline. Objective Vitals Vital Signs Date Time Temp Pulse Resp B/P Pulse Ox O2 Delivery O2 Flow Rate FiO2 07/24/16 08:20 97 Nasal Cannula 5.00 07/24/16 08:00 96.1 112 21 103/73 92 07/24/16 04:15 96.0 107 19 87/59 94 07/24/16 00:31 96.3 111 19 103/58 96 07/23/16 20:29 95 Nasal Cannula 3.50 07/23/16 20:27 96.6 95 20 94/64 97 07/23/16 16:00 96.2 104 21 90/46 100 07/23/16 12:00 95.8 93 20 92/57 99 I/O 07/23/16 07/23/16 07/23/16 07/24/16 07/24/16 07/24/16 07:00 15:00 23:00 07:00 15:00 23:00 Intake Total 480 ml 720 ml 360 ml 560 ml Output Total 700 ml 1450 ml 600 ml 360 ml Balance -220 ml -730 ml -240 ml 200 ml Intake Oral 480 ml 720 ml 360 ml 360 ml IV Total 200 ml Output Urine Total 700 ml 1450 ml 600 ml 360 ml # Bowel Movements 1 1 0 0 Result Diagram: 07/24/16 0532 07/24/16 0532 Objective Remarks GENERAL: Morbidly obese male CARDIOVASCULAR: Normal rate and regular rhythm without murmurs, gallops, or rubs. RESPIRATORY: Poor air movement. Could not appreciate wheezing or rhonchi. GASTROINTESTINAL: Abdomen morbidly obese, nontender. Normal active bowel sounds MUSCULOSKELETAL: Extremities 2+ bilateral lower extremity edema and chronic venous stasis changes. Some weeping. NEURO: Alert & Oriented. Moves all ext x4 PSYCH: Appropriate mood and affect. A/P Problem List: (1) Hospital-acquired pneumonia ICD Code: J18.9 Status: Acute (2) Acute and chronic respiratory failure ICD Code: J96.20 Status: Acute (3) CHF exacerbation ICD Code: I50.9 Status: Acute Assessment and Plan 65-year-old male with history of CAD with stents, atrial fibrillation on Coumadin, CHF, HTN, CKD stage III, NINO on BiPAP at night, chronic respiratory failure on home O2, presents from [facility] for worsening shortness of breath , weight gain, and decreased O2 saturations. Acute on Chronic Respiratory Failure: O2 dependent. Likely multifactorial secondary to pneumonia, CHF exacerbation, obesity hypoventilation syndrome & NINO. Patient on chronic O2. He denies hx of lung disease/COPD/emphysema/asthma. Imaging reviewed by me: CXR showed LLL opacity, CT chest showed LLL consolidation with b/l pleural effusions. See treatment below. - Improving today but not close to baseline yet. CKD stage III: previously Cr 4.29 on 06/29/16 while admitted to for acute renal failure. Renal function worsening since arrival here probably secondary to diuretics. - Patient is morbidly obese but feels that he is still fluid overloaded. - Will consult Nephrology to see if there is more room to diurese. Health care Acquired Pneumonia: patient with recent hospitalization 3 weeks ago. Imaging as above. S/p IV Zosyn, Vanco, and Levaquin. Continue on IV Zosyn and Levaquin. Duonebs q6h braydon and q4h prn. Continue bipap. Acute on Chronic CHF: no echo on file. BNP elevated. Imaging with b/l pleural effusions. 3+ edema on exam. Given IV Lasix 40mg x1. Given drop in renal function Bumex IV Dced. Continue Torsemide if BP can tolerate. Monitor Is&Os. Check echocardiogram. NINO: continue patient's bipap at night CAD with stents, HTN, atrial fibrillation: chronic, stable, continue patient's metoprolol, Coumadin. Monitor daily INR. Hypothyroidism: chronic, stable, continue patient's levothyroxine Morbid Obesity: BMI 59. Patient is nonambulatory for this past month or so. PT following. Pulmonary Nodule: seen on chest CT. Outpatient follow up with pulmonology. Hale Catheter: patient reports he's had this for years. Continue Hale. DVT Prophylaxis: on Coumadin Discharge Planning Continue current treatment. Piero Wisdom MD Jul 24, 2016 11:40
--- NOTE | 2016-07-24 12:22 | EC ---
Study Study Date:07/24/2016 STUDY CONCLUSIONS SUMMARY - Left ventricle: The cavity size was normal. Wall thickness was normal. Systolic function was mildly reduced. The estimated ejection fraction was in the range of 45% to 50%. Regional wall motion abnormalities cannot be excluded. - Aortic valve: Mild regurgitation. - Mitral valve: Mildly calcified annulus. Mildly thickened leaflets, . - Left atrium: The atrium was mildly dilated. - Right ventricle: The cavity size was dilated. Wall thickness was normal. Systolic function was reduced. - Right atrium: The atrium was mildly dilated. - Tricuspid valve: Mild-moderate regurgitation. - Pulmonary arteries: Systolic pressure was moderately to severely increased. PA peak pressure: 75mm Hg (S). If LV function is below 40, please consider prescribing an ACEI or ARB or document rationale for non-use. PROCEDURE DATA STUDY STATUS: Elective. Procedure: Transthoracic echocardiography. Image quality was suboptimal. Scanning was performed from the parasternal, apical, and subcostal acoustic windows. Study completion: The patient tolerated the procedure well. Transthoracic echocardiography. M-mode, complete 2D, complete spectral Doppler, and color Doppler. Patient status: Inpatient. CARDIAC ANATOMY LEFT VENTRICLE: Not well visualized. The cavity size was normal. Wall thickness was normal. Systolic function was mildly reduced. The estimated ejection fraction was in the range of 45% to 50%. Regional wall motion abnormalities cannot be excluded. AORTIC VALVE: Trileaflet; mildly thickened, mildly calcified leaflets. Doppler: Transvalvular velocity was within the normal range. There was no stenosis. Mild regurgitation. AORTA: Aortic root: The aortic root was normal in size. MITRAL VALVE: Mildly calcified annulus. Mildly thickened leaflets, . Doppler: Transvalvular velocity was within the normal range. There was no evidence for stenosis. Trace regurgitation. Peak gradient: 3mm Hg (D). LEFT ATRIUM: The atrium was mildly dilated. RIGHT VENTRICLE: Not well visualized. The cavity size was dilated. Wall thickness was normal. Systolic function was reduced. PULMONIC VALVE: Doppler: Transvalvular velocity was within the normal range. There was no evidence for stenosis. No regurgitation. TRICUSPID VALVE: Structurally normal valve. Doppler: Transvalvular velocity was within the normal range. Mild-moderate regurgitation. PULMONARY ARTERY: The main pulmonary artery was normal-sized. Systolic pressure was moderately to severely increased. RIGHT ATRIUM: The atrium was mildly dilated. PERICARDIUM: There was no pericardial effusion. BASIC MEASUREMENTS ADULT NORMAL Left ventricle LV internal dimension, ED, chordal level, 50.7 mm 43-52 PLAX LV posterior wall thickness, ED 10.9 mm IVS/LVPW ratio, ED 1.16 <1.3 Ventricular septum Septal thickness, ED 12.6 mm Aortic valve Leaflet separation 18 mm 15-26 Left atrium Anterior-posterior dimension 46 mm Right ventricle RV internal dimension, ED, PLAX 33.3 mm 19-38 BASIC MEASUREMENTS ADULT NORMAL Aortic valve Leaflet separation 18 mm 15-26 Aorta Root diameter, ED 36 mm 20-37 DOPPLER MEASUREMENTS ADULT NORMAL Main pulmonary artery Pressure, S *75 mm Hg =30 Mitral valve Peak E-wave velocity 82.9 cm/s Peak A-wave velocity 30.6 cm/s Peak gradient, D 3 mm Hg Peak E/A ratio 2.7 Tricuspid valve Regurgitant peak velocity 203 cm/s Peak RV-RA gradient, S 16 mm Hg Maximal regurgitant velocity 203 cm/s Systemic veins Estimated CVP 10 mm Hg Right ventricle RV pressure, S *75 mm Hg <30 LEGEND: Mean values are shown as u=mean value. Asterisk (*) molina values outside specified normal range. Prepared and signed by Darin Arceo [id number]
[2016-07-24] MEDS: WARFARIN SOD 4 MG TAB PO SCH (16:00)
--- NOTE | 2016-07-24 17:19 | PD.CONS ---
HPI Consult Requested By Reason for Consult Renal insufficiency. Anasarca. Primary Care Physician Non-Staff History of Present Illness This patient is a 65-year-old male who gives a history of having acute renal insufficiency while admitted to [facility] last month. According to patient he was told that he had pneumonia and acute renal insufficiency. He received IV fluids according to the patient he developed edema which worsened post discharge. He indicated to me that a kidney specialist indicated that he required dialysis during that admission but subsequently his kidney numbers may have improved and this was no longer a consideration at the time of discharge. Patient has no recollection of being told that he had a kidney condition prior to that admission. Patient indicates edema has worsened in the last week involving his scrotum. Denies using NSAIDs as an outpatient. No history of collagen vascular disease, nephrolithiasis, viral hepatitis. He also informed me that prior to his admission I can June he was ambulatory but subsequently was discharged to rehabilitation. Review of Systems Constitutional: COMPLAINS OF: Fatigue, Weight gain, DENIES: Diaphoretic episodes, Fever, Weight loss, Chills, Dizziness, Change in appetite, Night Sweats Cardiovascular: COMPLAINS OF: Dyspnea on Exertion, Lower Extremity Edema, DENIES: Chest pain, Palpitations, Syncope, PND, Orthopnea, Claudication Gastrointestinal: DENIES: Abdominal pain, Black stools, Bloody stools, Constipation, Diarrhea, Nausea, Vomiting, Difficulty Swallowing, Anorexia Musculoskeletal: COMPLAINS OF: Joint pain, DENIES: Muscle aches, Stiffness, Joint Swelling, Back pain, Neck pain Neurologic: COMPLAINS OF: Abnormal gait, DENIES: Headache, Localized weakness , Paresthesias, Seizures, Speech Problems, Tremor Past Family Social History Allergies: Coded Allergies: Heparin (Verified Allergy, Unknown, 07/21/16) Uncoded Allergies: CEFEPIME (Allergy, Unknown, 07/21/16) UNKNOWN Past Medical History 2-D echo June admission indicating ejection fraction 45-50% and signs of moderate to severe pulmonary hypertension. Coronary disease with previous PTCA. Atrial fibrillation Congestive heart failure. Need for chronic Hale catheter. Patient cannot give me details regarding previous urological evaluation. History suggesting CKD stage III. Sleep apnea requiring BiPAP. Hypothyroidism Morbid obesity. Past Surgical History Noncontributory current complaint. Reported Medications Reported Meds & Active Scripts Active Reported Fleet Enema Rectal (Sodium Phosphates Rectal) 7-19 Gm/118 Ml Enem 118 Ml RECTAL HS PRN Dulcolax Supp (Bisacodyl) 10 Mg Supp 10 Mg RECTAL DIRECTED PRN Milk of Magnesia Liq (Magnesium Hydroxide) 400 Mg/5 Ml Susp 30 Ml PO DIRECTED PRN Zostrix Arthritis Pain Relief Topical (Capsaicin) 0.025% Cream 1 Applic TOPICAL EACH SHIFT Xanax (Alprazolam) 0.5 Mg Tab 0.5 Mg PO BID Warfarin 4 Mg Tab 4 Mg PO HS Torsemide 20 Mg Tab 20 Mg PO DAILY Oxycodone (Oxycodone HCl) 5 Mg Tab 5 Mg PO Q6H PRN Metoprolol Tartrate 25 Mg Tab 12.5 Mg PO BID Levothyroxine (Levothyroxine Sodium) 25 Mcg Tab 25 Mcg PO DAILY Xopenex Neb (Levalbuterol HCl) 1.25 Mg/3 Ml Neb 1.25 Mg NEB TID NEB Tamsulosin (Tamsulosin HCl) 0.4 Mg Cap 0.4 Mg PO DAILY Vibramycin (Doxycycline Hyclate) 100 Mg Cap 100 Mg PO BID Colace (Docusate Sodium) 100 Mg Cap 100 Mg PO BID Dulcolax DR (Bisacodyl) 5 Mg Tabdr 10 Mg PO HS PRN Active Ordered Medications Current Medications IV Flush 2 ml 2 ml UNSCH PRN IVF FLUSH AFTER USING IV ACCESS Last administered on 07/21/16 17:07; Start 07/21/16 at 13:30 Piperacillin Sod/ Tazobactam Sod 100 ml @ 200 mls/hr ONCE STAT IV Last administered on 07/21/16 18:36; Start 07/21/16 at 15:58; Stop 07/21/16 at 16:27; Status DC Levofloxacin/ Dextrose 150 ml @ 100 mls/hr ONCE ONCE IV Last administered on 07/21/16 17:07; Start 07/21/16 at 16:00; Stop 07/21/16 at 17:29; Status DC Vancomycin HCl/ Sodium Chloride (Vancomycin Inj/ NS 250 ml Inj) 250 ml @ 250 mls/hr ONCE ONCE IV Last administered on 07/21/16 20:08; Start 07/21/16 at 16: 00; Stop 07/21/16 at 16:59; Status DC Alprazolam (Xanax) 0.5 mg BID PO Last administered on 07/24/16 08:35; Start 07/21/16 at 21:00 Docusate Sodium (Colace) 100 mg BID PO Last administered on 07/22/16 08:52; Start 07/21/16 at 21:00 Levothyroxine Sodium (Synthroid) 25 mcg DAILY@06 PO Last administered on 05:22; Start 07/22/16 at 06:00 Metoprolol Tartrate (Lopressor) 12.5 mg BID PO Last administered on 07/22/16 08 :52; Start 07/21/16 at 21:00 Tamsulosin HCl (Flomax) 0.4 mg DAILY PO Last administered on 07/24/16 08:35; Start 07/22/16 at 09:00 Torsemide (Demadex) 20 mg DAILY PO ; Start 07/22/16 at 09:00 Warfarin Sodium (Coumadin) 4 mg DAILY@1600 PO Last administered on 07/22/16 17: 05; Start 07/21/16 at 16:30 Furosemide (Lasix Inj) 40 mg ONCE ONCE IV PUSH Last administered on 07/21/16 17:07; Start 07/21/16 at 16:30; Stop 07/21/16 at 16:31; Status DC Miscellaneous (Pill Splitter) 1 ea UNSCH PRN OTHER SEE LABEL COMMENTS; Start at 16:30 Patient Medication Teaching (Coumadin Booklet) 1 ONCE ONCE XX Last administered on 07/21/16 18:38; Start 07/21/16 at 16:45; Stop 07/21/16 at 16:46; Status DC IV Flush (NS Flush) 2 ml UNSCH PRN IV FLUSH FLUSH AFTER USING IV ACCESS Last administered on 07/21/16 18:37; Start 07/21/16 at 16:30 IV Flush 2 ml 2 ml BID IV FLUSH Last administered on 07/24/16 08:38; Start 07/21 at 21:00 Piperacillin Sod/ Tazobactam Sod 100 ml @ 200 mls/hr Q6H IV Last administered on 07/24/16 12:55; Start 07/22/16 at 00:00 Levofloxacin/ Dextrose (Levaquin 750 Mg Premix Inj) 150 ml @ 100 mls/hr Q24H IV Last administered on 07/22/16 17:05; Start 07/22/16 at 17:00; Stop 07/23/16 at 15:02; Status DC Albuterol/ Ipratropium (Duoneb Neb) 1 ampule Q6HR NEB INH Last administered on 07/24/16 15:54; Start 07/21/16 at 22:00 Albuterol/ Ipratropium (Duoneb Neb) 1 ampule Q4HR NEB PRN INH SHORTNESS OF BREATH Last administered on 07/23/16 01:18; Start 07/21/16 at 16:30 Acetaminophen (Tylenol) 650 mg Q4H PRN PO TEMPERATURE > 101 F; Start 07/21/16 at 16:30 Ondansetron HCl (Zofran Inj) 4 mg Q6H PRN IV NAUSEA; Start 07/21/16 at 16:30 Acetaminophen/ Hydrocodone Bitart (Roy 5-325 Mg) 1 tab Q4H PRN PO PAIN LESS THAN 5 ON SCALE Last administered on 07/23/16 23:55; Start 07/21/16 at 16:45 Bumetanide (Bumex Inj) 1 mg BID@09,18 IV PUSH Last administered on 07/22/16 20: 12; Start 07/22/16 at 09:00; Stop 07/23/16 at 08:01; Status DC Bumetanide 1 mg 1 mg ONCE ONCE IV PUSH ; Start 07/23/16 at 19:00; Stop 07/23/16 at 19:01; Status DC Levofloxacin/ Dextrose (Levaquin 750 Mg Premix Inj) 150 ml @ 100 mls/hr Q48H IV ; Start 07/24/16 at 17:00 Family History Denies known family history of renal disease. Social History Please see admission H&P for details. Physical Exam Vital Signs Vital Signs Date Time Temp Pulse Resp B/P Pulse Ox O2 Delivery O2 Flow Rate FiO2 07/24/16 15:54 96 Nasal Cannula 5.00 07/24/16 12:00 98.0 79 21 105/61 97 07/24/16 08:20 97 Nasal Cannula 5.00 07/24/16 08:00 96.1 112 21 103/73 92 07/24/16 04:15 96.0 107 19 87/59 94 07/24/16 00:31 96.3 111 19 103/58 96 07/23/16 20:29 95 Nasal Cannula 3.50 07/23/16 20:27 96.6 95 20 94/64 97 Physical Exam GENERAL: Patient obese lying in bed appearing very debilitated. SKIN: Warm and dry. HEAD: Normocephalic. EYES: No scleral icterus. No injection or drainage. NECK: Supple, trachea midline. No JVD or lymphadenopathy. CARDIOVASCULAR: Regular rate and rhythm without murmurs, gallops, or rubs. RESPIRATORY: Breath sounds equal bilaterally. No accessory muscle use. GASTROINTESTINAL: Abdomen soft, non-tender, nondistended. MUSCULOSKELETAL: No cyanosis, 3+ edema involving feet, legs, thighs as well as dependent hip and torso. pitting. BACK: Nontender without obvious deformity. No CVA tenderness. Laboratory Laboratory Tests Test 07/24/16 05:32 White Blood Count 8.7 Red Blood Count 4.36 Hemoglobin 12.0 Hematocrit 37.7 Mean Corpuscular Volume 86.4 Mean Corpuscular Hemoglobin 27.4 Mean Corpuscular Hemoglobin 31.7 Concent Red Cell Distribution Width 17.0 Platelet Count 45 Mean Platelet Volume 9.4 Prothrombin Time 23.7 Prothromb Time International 2.1 Ratio Sodium Level 140 Potassium Level 4.5 Chloride Level 106 Carbon Dioxide Level 27.2 Anion Gap 7 Blood Urea Nitrogen 38 Creatinine 1.86 Estimat Glomerular Filtration 37 Rate Random Glucose 113 Calcium Level 8.2 Date/Time Procedure Status Source Growth 07/21/16 14:23 Aerobic Blood Culture - Preliminary Resulted Blood Peripheral NO GROWTH IN 3 DAYS 07/21/16 14:23 Anaerobic Blood Culture - Preliminary Resulted Blood Peripheral NO GROWTH IN 3 DAYS Result Diagram: 07/24/16 0532 07/24/16 0532 Assessment and Plan Problem List: (1) Anasarca Plan: Patient has marked fluid retention. Suspect it is related to cardiac decompensation with a component of biventricular failure however the patient's CKD could be contributing. Patient also has hypoalbuminemia and we need to determine whether or not the patient has significant proteinuria which may be contributory. Review of anemia also the patient needs to be screened for myeloma setting of associated renal insufficiency. I have ordered 1 dose of Diuril together with albumin and bumetanide as scheduled to try and improve his volume status. The patient was advised that his renal function may improve if the fluid is offloaded and cardiac output improved however I also advised him that his renal indices may deteriorate with diuresis but given the severity of his fluid retention I believe that it is necessary to try and improve same and the patient is in agreement with proceeding with diuresis at this time. Serological studies as ordered. Await results of renal ultrasound. Medications should be adjusted for the patient's estimated GFR if clinically indicated. Avoid agents with significant potential for nephrotoxicity possible including NSAIDs for analgesia, iodine contrast agents. Gadolinium is contraindicated if the GFR is below 30. Total time reviewing records, formulating plan and discussing plan of management with patient directly 100 minutes. (2) CKD (chronic kidney disease) stage 3, GFR 30-59 ml/min Plan: May be related to nephrosclerosis of hypertension and aging. Also the patient may be predisposed to development of focal segmental glomerulosclerosis secondary to morbid obesity. (3) CHF exacerbation Plan: Plan of management as above. (4) Pulmonary hypertension Plan: Defer management of patient's pulmonary condition as well as sleep apnea to primary care physician. (5) Cardiomyopathy (6) HTN (hypertension) No Rowan MD Jul 24, 2016 17:19
[2016-07-24] MEDS: LEVOFLOXACIN 750 MG PREMIX INJ 150 ML IV SCH (17:55)
[2016-07-24] MEDS ORDERED: CHLOROTHIAZIDE SOD 500 MG VIAL IV ONE (21:00)
[2016-07-24] MEDS: ALBUMIN HUMAN 25% 12.5 GM/50 ML BAGP IV SCH (21:50)
[2016-07-24] MEDS: BUMETANIDE INJ 1 MG/4 ML VIAL IV PUSH SCH (22:32)
[2016-07-25] VITALS (9 sets, daily range): BP systolic 89–117; BP diastolic 48–68; PULSE 93–106; RESP 18–21; TEMP 96–97.4; O2SAT 95–99
[2016-07-25] MEDS: PIPERACIL-TAZO 4.5 GM PREMIX 100 ML IV SCH ×4 (00:22→21:23)
[2016-07-25] MEDS: RESP: ALBUTEROL 2.5 MG/IPRATROPIUM 0.5 MG NEB (SCH) INH ×3 (03:46→16:21)
[2016-07-25] MEDS: LEVOTHYROXINE SODIUM 25 MCG TAB PO SCH (05:15)
[2016-07-25 07:01] LABS: MEAN CELL VOLUME 87.7 FL (80.0-100.0); MEAN CORPUSCULAR HGB CONC 30.8 % (32.0-36.0); PLATELET COUNT 49 TH/MM3 (150-450); RED CELL DISTRIBUTION WIDTH 17.5 % (11.6-17.2); WHITE BLOOD COUNT 7.2 TH/MM3 (4.0-11.0)
[2016-07-25 07:03] LABS: INTERNATIONAL NORMALIZED RATIO 1.8 RATIO; PROTHROMBIN TIME - PATIENT 20.7 SEC (9.8-11.6)
[2016-07-25 07:08] LABS: REVIEW FLAG FINAL
[2016-07-25 07:18] LABS: BICARBONATE 29.3 MEQ/L (21.0-32.0); TOTAL PROTEIN SPE 6.4 GM/DL (6.0-7.6)
[2016-07-25 07:20] LABS: POTASSIUM 4.9 MEQ/L (3.5-5.1)
[2016-07-25] MEDS: ALPRAZolam 0.5 MG TAB PO SCH ×2 (09:00→21:24)
[2016-07-25] MEDS: METOPROLOL TARTRATE 25 MG TAB PO SCH ×2 (09:00→21:24)
[2016-07-25] MEDS: ALBUMIN HUMAN 25% 12.5 GM/50 ML BAGP IV SCH ×2 (10:13→21:23)
[2016-07-25] MEDS: BUMETANIDE INJ 1 MG/4 ML VIAL IV PUSH SCH ×2 (10:13→21:23)
[2016-07-25] MEDS: DOCUSATE SODIUM 100 MG CAP PO SCH ×2 (10:14→21:24)
[2016-07-25] MEDS: TAMSULOSIN HCL 0.4 MG CAP PO SCH (10:14)
--- NOTE | 2016-07-25 10:14 | HHI.NPPN ---
Subjective History of Present Illness This patient is a 65-year-old male who gives a history of having acute renal insufficiency while admitted to [facility] last month. According to patient he was told that he had pneumonia and acute renal insufficiency. He received IV fluids according to the patient he developed edema which worsened post discharge. He indicated to me that a kidney specialist indicated that he required dialysis during that admission but subsequently his kidney numbers may have improved and this was no longer a consideration at the time of discharge. Patient has no recollection of being told that he had a kidney condition prior to that admission. Patient indicates edema has worsened in the last week involving his scrotum. Denies using NSAIDs as an outpatient. No history of collagen vascular disease, nephrolithiasis, viral hepatitis. He also informed me that prior to his admission I can June he was ambulatory but subsequently was discharged to rehabilitation. Interval History States he is feeling OK today. Overall not much change from yesterday (Audra Vasquez) Review of Systems Cardiovascular Cardiac: Edema (Audra Vasquez) Objective Data Data 07/24/16 07/25/16 19:00 07:00 Intake Total 960 ml 720 ml Output Total 550 ml 2450 ml Balance 410 ml -1730 ml Intake Oral 960 ml 720 ml Output Urine Total 550 ml 2450 ml # Bowel Movements 0 0 Vital Signs Date Time Temp Pulse Resp B/P Pulse Ox O2 Delivery O2 Flow Rate FiO2 07/25/16 08:48 99 Nasal Cannula 4.00 07/25/16 07:38 96.8 103 18 111/66 95 07/25/16 04:26 97.4 93 21 101/61 95 07/25/16 00:32 97.2 105 19 89/60 97 07/24/16 20:37 96.7 89 20 107/58 96 07/24/16 16:00 96.7 102 21 118/58 98 07/24/16 15:54 96 Nasal Cannula 5.00 07/24/16 12:00 98.0 79 21 105/61 97 (Audra Vasquez) -: 07/25/16 0553 07/25/16 0553 Medication Review Current Medications Medications (Trade) Dose Ordered Sig/Olivia Route Start Time Stop Time Status Last Admin (NS Flush) 2 ml UNSCH PRN IVF 07/21/16 13:30 07/21/16 17:07 (Xanax) 0.5 mg BID PO 07/21/16 21:00 07/24/16 08:35 (Colace) 100 mg BID PO 07/21/16 21:00 07/22/16 08:52 (Synthroid) 25 mcg DAILY@06 PO 07/22/16 06:00 07/25/16 05:15 (Lopressor) 12.5 mg BID PO 07/21/16 21:00 07/22/16 08:52 (Flomax) 0.4 mg DAILY PO 07/22/16 09:00 07/24/16 08:35 (Coumadin) 4 mg DAILY@1600 PO 07/21/16 16:30 07/22/16 17:05 (Pill Splitter) 1 ea UNSCH PRN OTHER 07/21/16 16:30 (NS Flush) 2 ml UNSCH PRN IV FLUSH 07/21/16 16:30 07/21/16 18:37 IV Flush 2 ml 2 ml BID IV FLUSH 07/21/16 21:00 07/24/16 08:38 (Zosyn 4.5 Gm Premix) 100 ml @ 200 mls/hr Q6H IV 07/22/16 00:00 07/25/16 05:16 (Tylenol) 650 mg Q4H PRN PO 07/21/16 16:30 (Zofran Inj) 4 mg Q6H PRN IV 07/21/16 16:30 Acetaminophen/ Hydrocodone Bitart 1 tab 1 tab Q4H PRN PO 07/21/16 16:45 07/23/16 23:55 (Levaquin 750 Mg Premix Inj) 150 ml @ 100 mls/hr Q48H IV 07/24/16 17:00 07/24/16 17:55 (Bumex Inj) 2 mg Q12HR IV PUSH 07/24/16 21:00 07/24/16 22:32 (Albumin 25% Inj) 12.5 gm Q12HR IV 07/24/16 21:00 07/24/16 21:50 (Audra Vasquez) Physical Exam General Appearance: No Acute Distress (Audra Vasquez) Pulmonary Resp Exam: Breath Sounds Equal, Diminished Breath Sounds (Audra Vasquez) Cardiology CV Exam: Regular, Normal Sinus Rhythm (Audra Vasquez) Gastrointestinal/Abdomen GI Exam: Distended GI Remarks Edema present lateral abdominal cohen (Audra Vasquez) Integumentary Skin Exam: Warm (Audra Vasquez) Extremeties Extremities Exam: Pitting Edema Extremeties Remarks Significant 3+ pitting edema BLE (Audra Vasquez) Neurologic Neuro Exam: Alert, Awake, Oriented (Audra Vasquez) Psychiatric Psych Exam: Appropriate Responses (Audra Vasquez) Assessment/Plan Problem List: (1) Anasarca Plan: Patient has marked fluid retention. Suspect it is related to cardiac decompensation with a component of biventricular failure however the patient's CKD could be contributing. Serology pending. Renal US pending Continue with aggressive diuresis. Monitor renal functions Medications should be adjusted for the patient's estimated GFR if clinically indicated. Avoid agents with significant potential for nephrotoxicity possible including NSAIDs for analgesia, iodine contrast agents. Gadolinium is contraindicated if the GFR is below 30. (2) CKD (chronic kidney disease) stage 3, GFR 30-59 ml/min Plan: May be related to nephrosclerosis of hypertension and aging. Also the patient may be predisposed to development of focal segmental glomerulosclerosis secondary to morbid obesity. (3) CHF exacerbation Plan: Plan of management as above. (4) Pulmonary hypertension Plan: Defer management of patient's pulmonary condition as well as sleep apnea to primary care physician. (5) Cardiomyopathy (6) HTN (hypertension) (Audra Vasquez) Plan The exam, history, and the medical decision-making described in the above note were completed with the assistance of the ИРИНА. I reviewed and agree with the findings presented. (No Rowan MD) Audra Vasquez Jul 25, 2016 10:14 No Rowan MD Jul 29, 2016 13:42
[2016-07-25] MEDS: SODIUM CHLORIDE 0.9% FLUSH 5 ML FLUSH IV FLUSH SCH ×2 (10:18→21:23)
[2016-07-25 10:46] LABS: ALBUMIN SPE 3.52 GM/DL (3.50-5.00); ALPHA 1 GLOBULIN 0.37 GM/DL (0.11-0.29); ALPHA 2 GLOBULIN 0.83 GM/DL (0.22-1.00); BETA GLOBULINS (SPE) 0.67 GM/DL (0.53-1.03)
--- NOTE | 2016-07-25 14:29 | HHI.PR ---
Subjective Remarks Patient reports that he is feeling okay except for being a little anxious. He was evaluated by nephrology and continues to get IV diuretics. Objective Vitals Vital Signs Date Time Temp Pulse Resp B/P Pulse Ox O2 Delivery O2 Flow Rate FiO2 07/25/16 12:00 96.0 100 18 114/68 98 07/25/16 08:48 99 Nasal Cannula 4.00 07/25/16 07:38 96.8 103 18 111/66 95 07/25/16 04:26 97.4 93 21 101/61 95 07/25/16 00:32 97.2 105 19 89/60 97 07/24/16 20:37 96.7 89 20 107/58 96 07/24/16 16:00 96.7 102 21 118/58 98 07/24/16 15:54 96 Nasal Cannula 5.00 I/O 07/24/16 07/24/16 07/24/16 07/25/16 07/25/16 07/25/16 07:00 15:00 23:00 07:00 15:00 23:00 Intake Total 560 ml 960 ml 480 ml 240 ml Output Total 360 ml 550 ml 700 ml 1750 ml Balance 200 ml 410 ml -220 ml -1510 ml Intake Oral 360 ml 960 ml 480 ml 240 ml IV Total 200 ml Output Urine Total 360 ml 550 ml 700 ml 1750 ml # Bowel Movements 0 0 0 0 Result Diagram: 07/25/16 0553 07/25/16 0553 Objective Remarks GENERAL: Morbidly obese male CARDIOVASCULAR: Normal rate and regular rhythm without murmurs, gallops, or rubs. RESPIRATORY: Poor air movement. Could not appreciate wheezing or rhonchi. GASTROINTESTINAL: Abdomen morbidly obese, nontender. Normal active bowel sounds MUSCULOSKELETAL: Extremities 2+ bilateral lower extremity edema and chronic venous stasis changes. Some weeping. NEURO: Alert & Oriented. Moves all ext x4 PSYCH: Appropriate mood and affect. A/P Problem List: (1) Hospital-acquired pneumonia ICD Code: J18.9 Status: Acute (2) Acute and chronic respiratory failure ICD Code: J96.20 Status: Acute (3) CHF exacerbation ICD Code: I50.9 Status: Acute Assessment and Plan 65-year-old male with history of CAD with stents, atrial fibrillation on Coumadin, CHF, HTN, CKD stage III, NINO on BiPAP at night, chronic respiratory failure on home O2, presents from [facility] for worsening shortness of breath , weight gain, and decreased O2 saturations. Acute on Chronic Respiratory Failure: O2 dependent. Likely multifactorial secondary to pneumonia, CHF exacerbation, obesity hypoventilation syndrome & NINO. Patient on chronic O2. He denies hx of lung disease/COPD/emphysema/asthma. Imaging reviewed by me: CXR showed LLL opacity, CT chest showed LLL consolidation with b/l pleural effusions. See treatment below. - Improving today but not close to baseline yet. CKD stage III: previously Cr 4.29 on 06/29/16 while admitted to for acute renal failure. Renal function worsening since arrival here probably secondary to diuretics. - Patient is morbidly obese with marked fluid retention. Nephrology following. Continue IV Bumex 1 mg twice a day. Albumin 12.5 mg twice a day Serology pending. Renal US pending Health care Acquired Pneumonia: patient with recent hospitalization 3 weeks ago. Imaging as above. S/p IV Zosyn, Vanco, and Levaquin. Continue on IV Zosyn and Levaquin. Duonebs q6h braydon and q4h prn. Continue bipap. Acute on Chronic CHF: Echocardiogram shows LVEF 45-50%. BNP elevated. Imaging with b/l pleural effusions. 3+ edema on exam. Given IV Lasix 40mg x1. Continue IV Bumex per nephrology. Torsemide discontinued. NINO: continue patient's bipap at night CAD with stents, HTN, atrial fibrillation: chronic, stable, continue patient's metoprolol, Coumadin. Monitor daily INR. Hypothyroidism: chronic, stable, continue patient's levothyroxine Morbid Obesity: BMI 59. Patient is nonambulatory for this past month or so. PT following. Pulmonary Nodule: seen on chest CT. Outpatient follow up with pulmonology. Hale Catheter: patient reports he's had this for years. Continue Hale. DVT Prophylaxis: on Coumadin Discharge Planning Continue current treatment. Piero Wisdom MD Jul 25, 2016 14:29
[2016-07-25] MEDS: ACETAMINOPHEN/HYDROcodone 325 MG/5 MG TAB PO PRN (14:41)
[2016-07-25] MEDS: WARFARIN SOD 4 MG TAB PO SCH (14:42)
[2016-07-25] MEDS: RESP: ALBUTEROL 2.5 MG/IPRATROPIUM 0.5 MG NEB (PRN) INH (22:28)
[2016-07-26] VITALS (8 sets, daily range): BP systolic 100–116; BP diastolic 61–77; PULSE 70–108; RESP 18–20; TEMP 96–98.1; O2SAT 93–100
[2016-07-26] MEDS: PIPERACIL-TAZO 4.5 GM PREMIX 100 ML IV SCH ×4 (02:30→19:54)
[2016-07-26] MEDS: ACETAMINOPHEN/HYDROcodone 325 MG/5 MG TAB PO PRN ×2 (03:07→13:55)
[2016-07-26] MEDS: LEVOTHYROXINE SODIUM 25 MCG TAB PO SCH (05:22)
[2016-07-26 06:05] LABS: HEMATOCRIT 39.5 % (39.0-51.0); MEAN CELL VOLUME 87.7 FL (80.0-100.0); MEAN CORPUSCULAR HEMOGLOBIN 26.8 PG (27.0-34.0); MEAN CORPUSCULAR HGB CONC 30.6 % (32.0-36.0); PLATELET COUNT 52 TH/MM3 (150-450); RED CELL DISTRIBUTION WIDTH 17.7 % (11.6-17.2); WHITE BLOOD COUNT 7.5 TH/MM3 (4.0-11.0)
[2016-07-26 06:09] LABS: REVIEW FLAG FINAL
[2016-07-26 06:30] LABS: BICARBONATE 30.9 MEQ/L (21.0-32.0)
[2016-07-26 06:56] LABS: INTERNATIONAL NORMALIZED RATIO 1.7 RATIO; PROTHROMBIN TIME - PATIENT 18.7 SEC (9.8-11.6)
[2016-07-26] MEDS: ALPRAZolam 0.5 MG TAB PO SCH ×2 (08:59→20:45)
[2016-07-26] MEDS: TAMSULOSIN HCL 0.4 MG CAP PO SCH (08:59)
[2016-07-26] MEDS: METOPROLOL TARTRATE 25 MG TAB PO SCH ×2 (08:59→20:45)
[2016-07-26] MEDS: DOCUSATE SODIUM 100 MG CAP PO SCH ×2 (09:00→20:45)
[2016-07-26] MEDS: SODIUM CHLORIDE 0.9% FLUSH 5 ML FLUSH IV FLUSH SCH ×2 (09:00→20:44)
[2016-07-26] MEDS: BUMETANIDE INJ 1 MG/4 ML VIAL IV PUSH SCH ×3 (09:00→20:45)
[2016-07-26] MEDS: ALBUMIN HUMAN 25% 12.5 GM/50 ML BAGP IV SCH ×2 (10:16→20:44)
--- NOTE | 2016-07-26 10:54 | HHI.PR ---
Subjective Remarks Patient reports that he is doing okay. No increase in shortness of breath. Stable on nasal cannula. Diuresing okay. Objective Vitals Vital Signs Date Time Temp Pulse Resp B/P Pulse Ox O2 Delivery O2 Flow Rate FiO2 07/26/16 08:00 96.0 108 18 100/72 98 07/26/16 04:00 97.1 70 20 116/75 93 07/26/16 00:00 97.0 100 18 115/64 100 07/25/16 22:28 98 Nasal Cannula 4.00 07/25/16 20:00 100 07/25/16 20:00 96.5 100 18 117/65 96 07/25/16 16:00 96.0 106 18 108/48 95 07/25/16 15:41 18 07/25/16 14:30 113/68 07/25/16 12:00 96.0 100 18 114/68 98 I/O 07/25/16 07/25/16 07/25/16 07/26/16 07/26/16 07/26/16 07:00 15:00 23:00 07:00 15:00 23:00 Intake Total 240 ml 720 ml 550 ml 720 ml Output Total 1750 ml 2000 ml 600 ml 1150 ml Balance -1510 ml -1280 ml -50 ml -430 ml Intake Oral 240 ml 720 ml 550 ml 720 ml Output Urine Total 1750 ml 2000 ml 600 ml 1150 ml # Bowel Movements 0 1 1 1 Result Diagram: 07/26/1652507/26/16525 Objective Remarks GENERAL: Morbidly obese male CARDIOVASCULAR: Normal rate and regular rhythm without murmurs, gallops, or rubs. RESPIRATORY: Poor air movement. Could not appreciate wheezing or rhonchi. GASTROINTESTINAL: Abdomen morbidly obese, nontender. Normal active bowel sounds MUSCULOSKELETAL: Extremities 2+ bilateral lower extremity edema and chronic venous stasis changes. Some weeping. : Scrotum swollen. NEURO: Alert & Oriented. Moves all ext x4 PSYCH: Appropriate mood and affect. A/P Problem List: (1) Hospital-acquired pneumonia ICD Code: J18.9 Status: Acute (2) Acute and chronic respiratory failure ICD Code: J96.20 Status: Acute (3) CHF exacerbation ICD Code: I50.9 Status: Acute Assessment and Plan 65-year-old male with history of CAD with stents, atrial fibrillation on Coumadin, CHF, HTN, CKD stage III, NINO on BiPAP at night, chronic respiratory failure on home O2, presents from [facility] for worsening shortness of breath , weight gain, and decreased O2 saturations. Acute on Chronic Respiratory Failure: O2 dependent. Likely multifactorial secondary to pneumonia, CHF exacerbation, obesity hypoventilation syndrome & NINO. Patient on chronic O2. He denies hx of lung disease/COPD/emphysema/asthma. Imaging reviewed by me: CXR showed LLL opacity, CT chest showed LLL consolidation with b/l pleural effusions. See treatment below. - Improving but not at baseline yet. CKD stage III/anasarca: previously Cr 4.29 on 06/29/16 while admitted to for acute renal failure. Creatinine on arrival here 1.5. Renal function initially worsen since arrival here probably secondary to diuretics. Slight improvement today. - Patient is morbidly obese with marked fluid retention. -Appreciate Nephrology following. Continue IV Bumex 1 mg twice a day. Albumin 12.5 mg twice a day Serology pending. Renal US pending Health care Acquired Pneumonia: patient with recent hospitalization 3 weeks ago. Imaging as above. S/p IV Zosyn, Vanco, and Levaquin. Continue on IV Zosyn and Levaquin. Duonebs q6h braydon and q4h prn. Continue bipap. Acute on Chronic systolic CHF: Echocardiogram shows LVEF 45-50%. BNP elevated. Imaging with b/l pleural effusions. 3+ edema on exam. Given IV Lasix 40mg x1. Continue IV Bumex per nephrology. Torsemide discontinued. NINO: continue patient's bipap at night CAD with stents, HTN, atrial fibrillation: chronic, stable, continue patient's metoprolol, Coumadin. Monitor daily INR. Hypothyroidism: chronic, stable, continue patient's levothyroxine Morbid Obesity: BMI 59. Patient is nonambulatory for this past month or so. Consult PT. Pulmonary Nodule: seen on chest CT. Outpatient follow up with pulmonology. Hale Catheter: patient reports he's had this for years. Continue Hale. DVT Prophylaxis: on Coumadin Discharge Planning Continue current treatment with IV diuretics and antibiotics. Piero Wisdom MD Jul 26, 2016 10:54
--- NOTE | 2016-07-26 11:10 | HHI.NPPN ---
Subjective History of Present Illness This patient is a 65-year-old male who gives a history of having acute renal insufficiency while admitted to [facility] last month. According to patient he was told that he had pneumonia and acute renal insufficiency. He received IV fluids according to the patient he developed edema which worsened post discharge. He indicated to me that a kidney specialist indicated that he required dialysis during that admission but subsequently his kidney numbers may have improved and this was no longer a consideration at the time of discharge. Patient has no recollection of being told that he had a kidney condition prior to that admission. Patient indicates edema has worsened in the last week involving his scrotum. Denies using NSAIDs as an outpatient. No history of collagen vascular disease, nephrolithiasis, viral hepatitis. He also informed me that prior to his admission I can June he was ambulatory but subsequently was discharged to rehabilitation. Interval History Pt feeling OK today. No new c/o's (Audra Vasquez) Review of Systems Cardiovascular Cardiac: Edema (Audra Vasquez) Objective Data Data 07/25/16 07/26/16 19:00 07:00 Intake Total 720 ml 1270 ml Output Total 2000 ml 1750 ml Balance -1280 ml -480 ml Intake Oral 720 ml 1270 ml Output Urine Total 2000 ml 1750 ml # Bowel Movements 1 2 Vital Signs Date Time Temp Pulse Resp B/P Pulse Ox O2 Delivery O2 Flow Rate FiO2 07/26/16 08:00 96.0 108 18 100/72 98 07/26/16 04:00 97.1 70 20 116/75 93 07/26/16 00:00 97.0 100 18 115/64 100 07/25/16 22:28 98 Nasal Cannula 4.00 07/25/16 20:00 100 07/25/16 20:00 96.5 100 18 117/65 96 07/25/16 16:00 96.0 106 18 108/48 95 07/25/16 15:41 18 07/25/16 14:30 113/68 07/25/16 12:00 96.0 100 18 114/68 98 (Audra Vasquez) -: 07/26/16 0507/26/16 05 Medication Review Current Medications Medications (Trade) Dose Ordered Sig/Olivia Route Start Time Stop Time Status Last Admin (NS Flush) 2 ml UNSCH PRN IVF 07/21/16 13:30 07/21/16 17:07 (Xanax) 0.5 mg BID PO 07/21/16 21:00 07/26/16 08:59 (Colace) 100 mg BID PO 07/21/16 21:00 07/25/16 21:24 (Synthroid) 25 mcg DAILY@06 PO 07/22/16 06:00 07/26/16 05:22 (Lopressor) 12.5 mg BID PO 07/21/16 21:00 07/26/16 08:59 (Flomax) 0.4 mg DAILY PO 07/22/16 09:00 07/26/16 08:59 (Coumadin) 4 mg DAILY@1600 PO 07/21/16 16:30 07/25/16 14:42 (Pill Splitter) 1 ea UNSCH PRN OTHER 07/21/16 16:30 (NS Flush) 2 ml UNSCH PRN IV FLUSH 07/21/16 16:30 07/21/16 18:37 (NS Flush) 2 ml BID IV FLUSH 07/21/16 21:00 07/26/16 09:00 (Tylenol) 650 mg Q4H PRN PO 07/21/16 16:30 (Zofran Inj) 4 mg Q6H PRN IV 07/21/16 16:30 Acetaminophen/ Hydrocodone Bitart 1 tab 1 tab Q4H PRN PO 07/21/16 16:45 07/26/16 03:07 (Levaquin 750 Mg Premix Inj) 150 ml @ 100 mls/hr Q48H IV 07/24/16 17:00 07/24/16 17:55 (Bumex Inj) 2 mg Q12HR IV PUSH 07/24/16 21:00 07/26/16 10:20 Albumin Human 12.5 gm 12.5 gm Q12HR IV 07/24/16 21:00 07/26/16 10:16 (Zosyn 4.5 Gm Premix) 100 ml @ 200 mls/hr Q6H IV 07/25/16 20:00 07/26/16 08:59 (Audra Vasquez) Physical Exam General Appearance: No Acute Distress (Audra Vasquez) Pulmonary Resp Exam: Breath Sounds Equal, Diminished Breath Sounds (Audra Vasquez) Cardiology CV Exam: Regular, Normal Sinus Rhythm (Audra Vasquez) Gastrointestinal/Abdomen GI Exam: Distended GI Remarks Edema present lateral abdominal cohen (Audra Vasquez) Integumentary Skin Exam: Warm (Audra Vasquez) Extremeties Extremities Exam: Pitting Edema Extremeties Remarks Significant 3+ pitting edema BLE--improved slightly from yesterday (Audra Vasquez) Neurologic Neuro Exam: Alert, Awake, Oriented (Audra Vasquez) Psychiatric Psych Exam: Appropriate Responses (Audra Vasquez) Assessment/Plan Problem List: (1) Anasarca Plan: Patient has marked fluid retention. Suspect it is related to cardiac decompensation with a component of biventricular failure however the patient's CKD could be contributing. Serology pending. Renal US pending Continue with aggressive diuresis. Monitor renal functions. Medications should be adjusted for the patient's estimated GFR if clinically indicated. Avoid agents with significant potential for nephrotoxicity possible including NSAIDs for analgesia, iodine contrast agents. Gadolinium is contraindicated if the GFR is below 30. (2) CKD (chronic kidney disease) stage 3, GFR 30-59 ml/min Plan: May be related to nephrosclerosis of hypertension and aging. Also the patient may be predisposed to development of focal segmental glomerulosclerosis secondary to morbid obesity. (3) CHF exacerbation Plan: Plan of management as above. (4) Pulmonary hypertension Plan: Defer management of patient's pulmonary condition as well as sleep apnea to primary care physician. (5) Cardiomyopathy (6) HTN (hypertension) (Audra Vasquez) Plan The exam, history, and the medical decision-making described in the above note were completed with the assistance of the PADave. I reviewed and agree with the findings presented. I attest that I had a [id number] encounter with the patient on the same day, and personally performed and documented my assessment and findings in the medical record. (No Rowan MD) Audra Vasquez Jul 26, 2016 11:10 No Rowan MD Jul 29, 2016 13:41
--- NOTE | 2016-07-26 12:14 | RADRPT ---
EXAM DATE/TIME: 07/26/2016 11:33 [place] COMPARISON: CT THORAX W/O CONTRAST, July 21, 2016, 15:15. INDICATIONS : Increased BUN/Creatinine. MEDICAL HISTORY : Hypercholesterolemia. Chronic obstructive pulmonary disease. Hypertension. Congestive heart failure. Anticoagulant therapy, Coumadin. Atrial fibrillation. SURGICAL HISTORY : Cardiac stents. ENCOUNTER: Initial ACUITY: 1 day PAIN SCORE: 0/10 LOCATION: Bilateral flank MEASUREMENTS: RIGHT KIDNEY: 11.7 x 5.7 x 5.2 cm LEFT KIDNEY: Non-visualized. FINDINGS: RIGHT KIDNEY: Right renal cortex appears diffusely thin and mildly increased echotexture with small subcentimeter w ell-circumscribed simple appearing cyst. No evidence of concerning renal mass. LEFT KIDNEY: The left kidney was unable to be visualized due to the large patient body habitus. BLADDER: Bladder is not evaluated on this exam due to decompression with a Hale catheter. CONCLUSION: Limited evaluation of the kidneys secondary to patient body habitus and nonvisualization of the left kidney. The right kidney cortex appears mildly thinned and increased in echotexture which may reflect chronic medical renal disease. No evidence of hydronephrosis. Farzaneh White MD on July 26, 2016 at 12:10 Board Certified Radiologist. This report was verified electronically.
[2016-07-26] MEDS: WARFARIN SOD 4 MG TAB PO SCH (17:08)
[2016-07-26] MEDS: LEVOFLOXACIN 750 MG PREMIX INJ 150 ML IV SCH (17:08)
[2016-07-27] VITALS (10 sets, daily range): BP systolic 102–142; BP diastolic 61–86; PULSE 90–120; RESP 18–22; TEMP 96–98.5; O2SAT 92–98
[2016-07-27] MEDS: ACETAMINOPHEN/HYDROcodone 325 MG/5 MG TAB PO PRN ×3 (02:10→20:26)
[2016-07-27] MEDS: PIPERACIL-TAZO 4.5 GM PREMIX 100 ML IV SCH ×4 (02:10→20:27)
[2016-07-27 03:50] LABS: MYELOPEROXIDASE LESS THAN 1.0 AI (<1.0); PROTEINASE-3 LESS THAN 1.0 AI (<1.0)
[2016-07-27] MEDS: LEVOTHYROXINE SODIUM 25 MCG TAB PO SCH (05:42)
[2016-07-27 06:29] LABS: MEAN CELL VOLUME 87.5 FL (80.0-100.0); MEAN CORPUSCULAR HEMOGLOBIN 26.6 PG (27.0-34.0); MEAN CORPUSCULAR HGB CONC 30.4 % (32.0-36.0); PLATELET COUNT 56 TH/MM3 (150-450); RED BLOOD COUNT 4.23 MIL/MM3 (4.50-5.90); RED CELL DISTRIBUTION WIDTH 17.6 % (11.6-17.2); WHITE BLOOD COUNT 8.3 TH/MM3 (4.0-11.0)
[2016-07-27 06:39] LABS: INTERNATIONAL NORMALIZED RATIO 1.7 RATIO; PROTHROMBIN TIME - PATIENT 18.9 SEC (9.8-11.6)
[2016-07-27 06:41] LABS: REVIEW FLAG FINAL
[2016-07-27 06:53] LABS: BICARBONATE 29.2 MEQ/L (21.0-32.0); POTASSIUM 3.8 MEQ/L (3.5-5.1)
[2016-07-27] MEDS: TAMSULOSIN HCL 0.4 MG CAP PO SCH (08:01)
[2016-07-27] MEDS: ALBUMIN HUMAN 25% 12.5 GM/50 ML BAGP IV SCH ×2 (08:01→20:30)
[2016-07-27] MEDS: ALPRAZolam 0.5 MG TAB PO SCH ×2 (08:01→20:28)
[2016-07-27] MEDS: DOCUSATE SODIUM 100 MG CAP PO SCH ×2 (08:02→20:28)
[2016-07-27] MEDS: SODIUM CHLORIDE 0.9% FLUSH 5 ML FLUSH IV FLUSH SCH ×2 (08:02→20:30)
[2016-07-27] MEDS: BUMETANIDE INJ 1 MG/4 ML VIAL IV PUSH SCH ×2 (08:02→20:27)
[2016-07-27] MEDS: METOPROLOL TARTRATE 25 MG TAB PO SCH ×2 (08:02→20:28)
--- NOTE | 2016-07-27 08:58 | HHI.PR ---
Subjective Remarks Patient reports that he had a few episodes of loose stool and also complained of a stuffy nose and postnasal drip. Otherwise he has no increase in shortness of breath or chest pain. Diuresis ongoing, renal function stable today. Objective Vitals Vital Signs Date Time Temp Pulse Resp B/P Pulse Ox O2 Delivery O2 Flow Rate FiO2 07/27/16 08:00 97.4 100 18 102/61 96 07/27/16 04:44 98.0 90 18 105/71 98 07/27/16 00:58 98.0 90 18 103/66 98 07/26/16 21:25 98.1 93 18 113/61 100 07/26/16 20:00 93 07/26/16 16:00 97.1 100 18 109/77 97 07/26/16 12:20 94 Nasal Cannula 4.00 07/26/16 11:31 96.0 98 18 102/73 95 I/O 07/26/16 07/26/16 07/26/16 07/27/16 07/27/16 07/27/16 07:00 15:00 23:00 07:00 15:00 23:00 Intake Total 720 ml 1210 ml 240 ml 240 ml Output Total 1150 ml 500 ml 1375 ml Balance -430 ml 710 ml 240 ml -1135 ml Intake Oral 720 ml 960 ml 240 ml 240 ml IV Total 250 ml Output Urine Total 1150 ml 500 ml 1375 ml # Bowel Movements 1 1 2 2 Result Diagram: 07/27/16 0531 07/27/16 0531 Objective Remarks GENERAL: Morbidly obese male CARDIOVASCULAR: Normal rate and regular rhythm without murmurs, gallops, or rubs. RESPIRATORY: Poor air movement. Could not appreciate wheezing or rhonchi. GASTROINTESTINAL: Abdomen morbidly obese, nontender. Normal active bowel sounds MUSCULOSKELETAL: Extremities 2+ bilateral lower extremity edema and chronic venous stasis changes. Some weeping. : Scrotum swollen. NEURO: Alert & Oriented. Moves all ext x4 PSYCH: Appropriate mood and affect. A/P Problem List: (1) Hospital-acquired pneumonia ICD Code: J18.9 Status: Acute (2) Acute and chronic respiratory failure ICD Code: J96.20 Status: Acute (3) CHF exacerbation ICD Code: I50.9 Status: Acute Assessment and Plan 65-year-old male with history of CAD with stents, atrial fibrillation on Coumadin, CHF, HTN, CKD stage III, NINO on BiPAP at night, chronic respiratory failure on home O2, presents from [facility] for worsening shortness of breath , weight gain, anasarca and decreased O2 saturations. Acute on Chronic Respiratory Failure: O2 dependent. Likely multifactorial secondary to pneumonia, CHF exacerbation, obesity hypoventilation syndrome & NINO. Patient on chronic O2. He denies hx of lung disease/COPD/emphysema/asthma. Imaging reviewed by me: CXR showed LLL opacity, CT chest showed LLL consolidation with b/l pleural effusions. See treatment below. - Improving but not at baseline yet. CKD stage III/anasarca: previously Cr 4.29 on 06/29/16 while admitted to for acute renal failure. Creatinine on arrival here 1.5. Renal function initially worsen since arrival here probably secondary to diuretics. Now stabilized. - Patient is morbidly obese with marked fluid retention. -Appreciate Nephrology following. Continue IV Bumex 1 mg twice a day. Albumin 12.5 mg twice a day Serology pending. Renal US pending Health care Acquired Pneumonia: patient with recent hospitalization 3 weeks ago. Imaging as above. S/p IV Zosyn, Vanco, and Levaquin. Continue on IV Zosyn and Levaquin. Duonebs q6h braydon and q4h prn. Continue bipap. Acute on Chronic systolic CHF: Echocardiogram shows LVEF 45-50%. BNP elevated. Imaging with b/l pleural effusions. 3+ edema on exam. Given IV Lasix 40mg x1. Continue IV Bumex per nephrology. Torsemide discontinued. NINO: continue patient's bipap at night CAD with stents, HTN, atrial fibrillation: chronic, stable, continue patient's metoprolol, Coumadin. Monitor daily INR. Hypothyroidism: chronic, stable, continue patient's levothyroxine Morbid Obesity: BMI 59. Patient is nonambulatory for this past month or so. Consult PT. Pulmonary Nodule: seen on chest CT. Outpatient follow up with pulmonology. Hale Catheter: patient reports he's had this for years. Continue Hale. DVT Prophylaxis: on Coumadin Discharge Planning Continue IV diuresis per nephrology. Once diuresis complete, can discharged on antibiotics to SNF to complete treatment of pneumonia. Piero Wisdom MD Jul 27, 2016 08:58
[2016-07-27] MEDS: FLUTICASONE PROPIONATE 50 MCG/ACT 16 GM NASAL SPRAY NASAL SCH ×2 (09:14→20:29)
--- NOTE | 2016-07-27 15:36 | HHI.NPPN ---
Subjective History of Present Illness This patient is a 65-year-old male who gives a history of having acute renal insufficiency while admitted to [facility] last month. According to patient he was told that he had pneumonia and acute renal insufficiency. He received IV fluids according to the patient he developed edema which worsened post discharge. He indicated to me that a kidney specialist indicated that he required dialysis during that admission but subsequently his kidney numbers may have improved and this was no longer a consideration at the time of discharge. Patient has no recollection of being told that he had a kidney condition prior to that admission. Patient indicates edema has worsened in the last week involving his scrotum. Denies using NSAIDs as an outpatient. No history of collagen vascular disease, nephrolithiasis, viral hepatitis. He also informed me that prior to his admission I can June he was ambulatory but subsequently was discharged to rehabilitation. Interval History The patient states he is feeling well. No new issues (Audra Vasquez) Review of Systems Cardiovascular Cardiac: Edema (Audra Vasquez) Objective Data Data 07/26/16 07/27/16 19:00 07:00 Intake Total 1210 ml 480 ml Output Total 500 ml 1375 ml Balance 710 ml -895 ml Intake Oral 960 ml 480 ml IV Total 250 ml Output Urine Total 500 ml 1375 ml # Bowel Movements 1 4 Vital Signs Date Time Temp Pulse Resp B/P Pulse Ox O2 Delivery O2 Flow Rate FiO2 07/27/16 15:30 110 07/27/16 12:00 96.0 120 18 142/86 93 07/27/16 11:16 92 Nasal Cannula 5.00 07/27/16 08:00 97.4 100 18 102/61 96 07/27/16 04:44 98.0 90 18 105/71 98 07/27/16 00:58 98.0 90 18 103/66 98 07/26/16 21:25 98.1 93 18 113/61 100 07/26/16 20:00 93 07/26/16 16:00 97.1 100 18 109/77 97 (Audra Vasquez) -: 07/27/16 0531 07/27/16530 Medication Review Current Medications Medications (Trade) Dose Ordered Sig/Olivia Route Start Time Stop Time Status Last Admin (NS Flush) 2 ml UNSCH PRN IVF 07/21/16 13:30 07/21/16 17:07 (Xanax) 0.5 mg BID PO 07/21/16 21:00 07/27/16 08:01 (Colace) 100 mg BID PO 07/21/16 21:00 07/26/16 20:45 (Synthroid) 25 mcg DAILY@06 PO 07/22/16 06:00 07/27/16 05:42 (Lopressor) 12.5 mg BID PO 07/21/16 21:00 07/26/16 20:45 (Flomax) 0.4 mg DAILY PO 07/22/16 09:00 07/27/16 08:01 (Coumadin) 4 mg DAILY@1600 PO 07/21/16 16:30 07/26/16 17:08 (Pill Splitter) 1 ea UNSCH PRN OTHER 07/21/16 16:30 (NS Flush) 2 ml UNSCH PRN IV FLUSH 07/21/16 16:30 07/21/16 18:37 (NS Flush) 2 ml BID IV FLUSH 07/21/16 21:00 07/27/16 08:02 (Tylenol) 650 mg Q4H PRN PO 07/21/16 16:30 (Zofran Inj) 4 mg Q6H PRN IV 07/21/16 16:30 Acetaminophen/ Hydrocodone Bitart 1 tab 1 tab Q4H PRN PO 07/21/16 16:45 07/27/16 11:48 (Levaquin 750 Mg Premix Inj) 150 ml @ 100 mls/hr Q48H IV 07/24/16 17:00 07/26/16 17:08 (Bumex Inj) 2 mg Q12HR IV PUSH 07/24/16 21:00 07/27/16 08:02 Albumin Human 12.5 gm 12.5 gm Q12HR IV 07/24/16 21:00 07/27/16 08:01 (Zosyn 4.5 Gm Premix) 100 ml @ 200 mls/hr Q6H IV 07/25/16 20:00 07/27/16 14:52 (Imodium) 2 mg Q6H PRN PO 07/27/16 09:15 (Flonase Chnu Spr) 1 spray BID NASAL 07/27/16 09:14 (Audra Vasquez) Physical Exam General Appearance: No Acute Distress (Audra Vasquez) Pulmonary Resp Exam: Breath Sounds Equal, Diminished Breath Sounds (Audra Vasquez) Cardiology CV Exam: Regular, Normal Sinus Rhythm (Audra Vasquez) Gastrointestinal/Abdomen GI Exam: Distended GI Remarks Edema present lateral abdominal cohen (Audra Vasquez) Integumentary Skin Exam: Warm (Audra Vasquez) Extremeties Extremities Exam: Pitting Edema Extremeties Remarks Significant 3+ pitting edema BLE--improved slightly from yesterday (Audra Vasquez) Neurologic Neuro Exam: Alert, Awake, Oriented (Audra Vasquez) Psychiatric Psych Exam: Appropriate Responses (Audra Vasquez) Assessment/Plan Problem List: (1) Anasarca Plan: Patient has marked fluid retention. Suspect it is related to cardiac decompensation with a component of biventricular failure however the patient's CKD could be contributing. Continue on Bumex 2mg IV q12h with albumin. Will give dose of Diuril today Medications should be adjusted for the patient's estimated GFR if clinically indicated. Avoid agents with significant potential for nephrotoxicity possible including NSAIDs for analgesia, iodine contrast agents. Gadolinium is contraindicated if the GFR is below 30. (2) CKD (chronic kidney disease) stage 3, GFR 30-59 ml/min Plan: May be related to nephrosclerosis of hypertension and aging. Also the patient may be predisposed to development of focal segmental glomerulosclerosis secondary to morbid obesity. (3) CHF exacerbation Plan: Plan of management as above. (4) Pulmonary hypertension Plan: Defer management of patient's pulmonary condition as well as sleep apnea to primary care physician. (5) Cardiomyopathy (6) HTN (hypertension) (Audra Vasquez) Plan The exam, history, and the medical decision-making described in the above note were completed with the assistance of the PA-C. I reviewed and agree with the findings presented. I attest that I had a [id number] encounter with the patient on the same day, and personally performed and documented my assessment and findings in the medical record. (No Rowan MD) Audra Vasquez Jul 27, 2016 15:36 No Rowan MD Jul 29, 2016 13:40
[2016-07-27] MEDS ORDERED: CHLOROTHIAZIDE SOD 500 MG VIAL IV ONE (16:00)
[2016-07-27] MEDS: WARFARIN SOD 4 MG TAB PO SCH (17:11)
[2016-07-28] MEDS: PIPERACIL-TAZO 4.5 GM PREMIX 100 ML IV SCH ×2 (02:03→08:35)
[2016-07-28] MEDS: ACETAMINOPHEN/HYDROcodone 325 MG/5 MG TAB PO PRN ×4 (02:15→21:16)
[2016-07-28 04:00] VITALS: BP_SYST 122; BP_SYST 96; BP_DIAS 60; BP_DIAS 66; PULSE 105; PULSE 106; RESP 20; RESP 21; TEMP 96; TEMP 96.6; O2SAT 92; O2SAT 94
[2016-07-28] MEDS: LEVOTHYROXINE SODIUM 25 MCG TAB PO SCH (05:18)
[2016-07-28 06:07] LABS: BICARBONATE 28.8 MEQ/L (21.0-32.0); POTASSIUM 3.7 MEQ/L (3.5-5.1)
[2016-07-28 06:20] LABS: HEMATOCRIT 37.2 % (39.0-51.0); MEAN CELL VOLUME 90.5 FL (80.0-100.0); MEAN CORPUSCULAR HEMOGLOBIN 27.3 PG (27.0-34.0); MEAN CORPUSCULAR HGB CONC 30.1 % (32.0-36.0); PLATELET COUNT 63 TH/MM3 (150-450); RED BLOOD COUNT 4.11 MIL/MM3 (4.50-5.90); RED CELL DISTRIBUTION WIDTH 18.1 % (11.6-17.2); WHITE BLOOD COUNT 7.6 TH/MM3 (4.0-11.0)
[2016-07-28 06:21] LABS: REVIEW FLAG FINAL
[2016-07-28 08:00] VITALS: BP 97/69; PULSE 108; RESP 20; TEMP 95.3; O2SAT 95
[2016-07-28] MEDS: ALBUMIN HUMAN 25% 12.5 GM/50 ML BAGP IV SCH ×2 (08:35→21:17)
[2016-07-28] MEDS: METOPROLOL TARTRATE 25 MG TAB PO SCH ×2 (08:36→21:16)
[2016-07-28] MEDS: ALPRAZolam 0.5 MG TAB PO SCH ×2 (08:36→21:16)
[2016-07-28] MEDS: TAMSULOSIN HCL 0.4 MG CAP PO SCH (08:37)
[2016-07-28] MEDS: BUMETANIDE INJ 1 MG/4 ML VIAL IV PUSH SCH ×2 (08:37→21:17)
[2016-07-28] MEDS: DOCUSATE SODIUM 100 MG CAP PO SCH ×2 (08:37→21:00)
[2016-07-28] MEDS: SODIUM CHLORIDE 0.9% FLUSH 5 ML FLUSH IV FLUSH SCH ×2 (08:38→21:17)
[2016-07-28] MEDS: FLUTICASONE PROPIONATE 50 MCG/ACT 16 GM NASAL SPRAY NASAL SCH ×2 (08:38→21:18)
--- NOTE | 2016-07-28 10:34 | HHI.PR ---
Subjective Remarks Follow-up visit recent kidney function, hospital-acquired pneumonia, CHF exacerbation. Patient seen today. States he is doing well. Denies SOB/ dyspnea. Denies fevers, cough, chills, nausea, vomiting, diarrhea. Denies chest pain, palpitations, dizziness, headaches. Objective Vitals Vital Signs Date Time Temp Pulse Resp B/P Pulse Ox O2 Delivery O2 Flow Rate FiO2 07/28/16 08:00 95.3 108 20 97/69 95 07/28/16 04:00 96.6 105 21 122/60 94 07/27/16 23:45 96.5 107 20 129/85 96 07/27/16 22:02 94 Nasal Cannula 5.00 07/27/16 19:30 96.1 115 22 123/68 96 07/27/16 16:00 98.5 95 18 108/72 95 07/27/16 15:30 110 07/27/16 12:00 96.0 120 18 142/86 93 07/27/16 11:16 92 Nasal Cannula 5.00 I/O 07/27/16 07/27/16 07/27/16 07/28/16 07/28/16 07/28/16 07:00 15:00 23:00 07:00 15:00 23:00 Intake Total 240 ml 720 ml 480 ml 920 ml Output Total 1375 ml 500 ml 600 ml 700 ml Balance -1135 ml 220 ml -120 ml 220 ml Intake Oral 240 ml 720 ml 480 ml 920 ml Output Urine Total 1375 ml 500 ml 600 ml 700 ml # Bowel Movements 2 5 1 5 Result Diagram: 07/28/16 0500 07/28/16 0500 Imaging Last Impressions Renal Ultrasound 07/26/16 0000 Signed Impressions: Service Date/Time: Tuesday, July 26, 2016 11:33 - CONCLUSION: Limited evaluation of the kidneys secondary to patient body habitus and nonvisualization of the left kidney. The right kidney cortex appears mildly thinned and increased in echotexture which may reflect chronic medical renal disease. No evidence of hydronephrosis. Farzaneh White MD Chest CT 07/21/16 1428 Signed Impressions: Service Date/Time: July 15:15 - CONCLUSION: 1. Dense consolidation of the left lower lobe. 2. Small bilateral effusions. 3. 3.0 x 1.9 cm pleural-based nodule on the left. This is indeterminate by CT imaging. No hilar or mediastinal adenopathy is seen. 4. There is fluid in the left upper quadrant surrounding the spleen. The spleen appears mildly enlarged. 5. Advanced cardiomegaly. Girma Metzger MD Chest X-Ray 07/21/16 1317 Signed Impressions: Service Date/Time: July 13:33 - CONCLUSION: 1. Cardiomegaly with consolidation of the left lung base. Subsegmental airspace disease right lung base. No prior study for comparison. Raoul Gasca MD Objective Remarks GENERAL: This is a morbidly obese male, in no apparent distress. HEENT: Normocephalic. Pupils equal round and reactive. Nose without bleeding. Airway patent. NECK: Trachea midline. No JVD. Supple. CARDIOVASCULAR: Irregular rate and rhythm without murmurs, gallops, or rubs. RESPIRATORY: Diminished breath sounds, fair air movement. No use of accessory muscles. GASTROINTESTINAL: Abdomen soft, non-tender, nondistended. Bowel Sounds normoactive x4. MUSCULOSKELETAL: Extremities without clubbing, cyanosis. Edema +2 bilateral lower extremity and chronic venous stasis changes. Weeping. Scrotal edema present. Only Draining clear yellow urine. NEUROLOGICAL: Awake and alert. No focal neuro deficit. MANUEL. Normal speech. A/P Problem List: (1) Hospital-acquired pneumonia ICD Code: J18.9 Status: Acute (2) Acute and chronic respiratory failure ICD Code: J96.20 Status: Acute (3) CHF exacerbation ICD Code: I50.9 Status: Acute Assessment and Plan 65-year-old male with history of CAD with stents, atrial fibrillation on Coumadin, CHF, HTN, CKD stage III, NINO on BiPAP at night, chronic respiratory failure on home O2, presents from [facility] for worsening shortness of breath , weight gain, anasarca and decreased O2 saturations. Acute on Chronic Respiratory Failure: O2 dependent. Likely multifactorial secondary to pneumonia, CHF exacerbation, obesity hypoventilation syndrome & NINO. Patient on chronic O2. He denies hx of lung disease/COPD/emphysema/asthma. Imaging reviewed by me: CXR showed LLL opacity, CT chest showed LLL consolidation with b/l pleural effusions. - Improving but not at baseline yet. CKD stage III/anasarca: previously Cr 4.29 on 06/29/16 while admitted to for acute renal failure. Creatinine on arrival here 1.5. Renal function initially worsen since arrival here probably secondary to diuretics. - Patient is morbidly obese with marked fluid retention. - Appreciate Nephrology following. On IV Bumex 2 mg twice a day. Albumin 12.5 mg twice a day. 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 We'll check with nephrology possible dose adjustment Bumex may be considered. - Serology negative hep B and hep C - Renal US showed limited evaluation of the kidney secondary to patient body habitus nonvisualization of the left kidney. Right kidney cortex appears mildly thinned and increased in echotexture which may reflect chronic medical renal disease. No evidence of hydronephrosis Health care Acquired Pneumonia: patient with recent hospitalization 3 weeks ago. Imaging as above. S/p IV Zosyn, Vanco, and Levaquin. -S tart by mouth Levaquin 750 mg every 48 hours - Duonebs q6h braydon and q4h prn. Continue bipap. Acute on Chronic systolic CHF: Echocardiogram shows LVEF 45-50%. BNP elevated. Imaging with b/l pleural effusions. 3+ edema on exam. Given IV Lasix 40mg x1. Continue IV Bumex per nephrology. Torsemide discontinued. NINO: continue patient's bipap at night CAD with stents, HTN, atrial fibrillation: chronic, stable, continue patient's metoprolol, Coumadin. Monitor daily INR. Hypothyroidism: chronic, stable, continue patient's levothyroxine. Morbid Obesity: BMI 59. Patient is nonambulatory for this past month or so. Consult PT. increase activities. Pulmonary Nodule: seen on chest CT. Outpatient follow up with pulmonology. Hale Catheter: patient reports he's had this for years. Continue Hale. DVT Prophylaxis: on Coumadin Written by Primo Weeks, acting as scribe for on 07/28/16 at 10:34. The documentation accurately reflects the work performed [id number] by , Nathanael Woo D.O on 07/28/16 at 10:34. Discharge Planning Not ready for discharge Grabiel Woo DO Jul 28, 2016 10:34 Primo Martin [facility] Jul 28, 2016 13:35
[2016-07-28 11:34] VITALS: BP 94/52; PULSE 108; RESP 20; TEMP 95.6; O2SAT 91; O2SAT 92
[2016-07-28] MEDS: LEVOFLOXACIN 750 MG TAB PO SCH (12:20)
[2016-07-28 15:45] VITALS: BP 140/69; PULSE 99; RESP 20; TEMP 95.4; O2SAT 92
[2016-07-28] MEDS: WARFARIN SOD 4 MG TAB PO SCH (16:22)
--- NOTE | 2016-07-28 17:28 | HHI.NPPN ---
Subjective History of Present Illness This patient is a 65-year-old male who gives a history of having acute renal insufficiency while admitted to [facility] last month. According to patient he was told that he had pneumonia and acute renal insufficiency. He received IV fluids according to the patient he developed edema which worsened post discharge. He indicated to me that a kidney specialist indicated that he required dialysis during that admission but subsequently his kidney numbers may have improved and this was no longer a consideration at the time of discharge. Patient has no recollection of being told that he had a kidney condition prior to that admission. Patient indicates edema has worsened in the last week involving his scrotum. Denies using NSAIDs as an outpatient. No history of collagen vascular disease, nephrolithiasis, viral hepatitis. He also informed me that prior to his admission I can June he was ambulatory but subsequently was discharged to rehabilitation. Interval History The patient was resting upon entering. Says he is feeling well. No new complaints. (Audra Vasquez) Review of Systems Cardiovascular Cardiac: Edema (Audra Vasquez) Objective Data Data 07/27/16 07/28/16 19:00 07:00 Intake Total 720 ml 480 ml Output Total 500 ml 600 ml Balance 220 ml -120 ml Intake Oral 720 ml 480 ml Output Urine Total 500 ml 600 ml # Bowel Movements 5 1 Vital Signs Date Time Temp Pulse Resp B/P Pulse Ox O2 Delivery O2 Flow Rate FiO2 07/28/16 15:45 95.4 99 20 140/69 92 07/28/16 11:34 95.6 108 20 94/52 92 07/28/16 08:00 95.3 108 20 97/69 95 07/28/16 04:00 96.6 105 21 122/60 94 07/27/16 23:45 96.5 107 20 129/85 96 07/27/16 22:02 94 Nasal Cannula 5.00 07/27/16 19:30 96.1 115 22 123/68 96 (Audra Vasquez) -: 07/28/16 0500 07/28/16 0500 Medication Review Current Medications Medications (Trade) Dose Ordered Sig/Loivia Route Start Time Stop Time Status Last Admin (NS Flush) 2 ml UNSCH PRN IVF 07/21/16 13:30 07/21/16 17:07 (Xanax) 0.5 mg BID PO 07/21/16 21:00 07/28/16 08:36 (Colace) 100 mg BID PO 07/21/16 21:00 07/28/16 08:37 (Synthroid) 25 mcg DAILY@06 PO 07/22/16 06:00 07/28/16 05:18 (Lopressor) 12.5 mg BID PO 07/21/16 21:00 07/28/16 08:36 (Flomax) 0.4 mg DAILY PO 07/22/16 09:00 07/28/16 08:37 (Coumadin) 4 mg DAILY@1600 PO 07/21/16 16:30 07/28/16 16:22 (Pill Splitter) 1 ea UNSCH PRN OTHER 07/21/16 16:30 (NS Flush) 2 ml UNSCH PRN IV FLUSH 07/21/16 16:30 07/21/16 18:37 (NS Flush) 2 ml BID IV FLUSH 07/21/16 21:00 07/28/16 08:38 (Tylenol) 650 mg Q4H PRN PO 07/21/16 16:30 (Zofran Inj) 4 mg Q6H PRN IV 07/21/16 16:30 ([place] 5-325 Mg) 1 tab Q4H PRN PO 07/21/16 16:45 07/28/16 16:22 (Bumex Inj) 2 mg Q12HR IV PUSH 07/24/16 21:00 07/28/16 08:37 (Albumin 25% Inj) 12.5 gm Q12HR IV 07/24/16 21:00 07/28/16 08:35 (Imodium) 2 mg Q6H PRN PO 07/27/16 09:15 (Flonase Chun Spr) 1 spray BID NASAL 07/27/16 09:14 07/28/16 08:38 (Levaquin) 750 mg Q48H PO 07/28/16 12:00 08/01/16 12:01 07/28/16 12:20 (Audra Vasquez) Physical Exam General Appearance: No Acute Distress (Audra Vasquez) Pulmonary Resp Exam: Breath Sounds Equal, Diminished Breath Sounds (Audra Vasquez) Cardiology CV Exam: Regular, Normal Sinus Rhythm (Audra Vasquez) Gastrointestinal/Abdomen GI Exam: Distended GI Remarks Edema present lateral abdominal cohen (Audra Vasquez) Integumentary Skin Exam: Warm (Audra Vasquez) Extremeties Extremities Exam: Pitting Edema Extremeties Remarks Still with significant edema. 2+ generalized including abdomen (Audra Vasquez) Neurologic Neuro Exam: Alert, Awake, Oriented (Audra Vasquez) Psychiatric Psych Exam: Appropriate Responses (Audra Vasquez) Assessment/Plan Problem List: (1) Anasarca Plan: Patient has marked fluid retention. Suspect it is related to cardiac decompensation with a component of biventricular failure however the patient's CKD could be contributing. SCr bumped slightly. As he still has significant edema, will leave on IV Bumex 2mg q12h with albumin for the present. If SCr should rise again tomorrow, consideration at that time to decrease Bumex to 1mg q12h Monitor I&Os Medications should be adjusted for the patient's estimated GFR if clinically indicated. Avoid agents with significant potential for nephrotoxicity possible including NSAIDs for analgesia, iodine contrast agents. Gadolinium is contraindicated if the GFR is below 30. (2) CKD (chronic kidney disease) stage 3, GFR 30-59 ml/min Plan: May be related to nephrosclerosis of hypertension and aging. Also the patient may be predisposed to development of focal segmental glomerulosclerosis secondary to morbid obesity. (3) CHF exacerbation Plan: Plan of management as above. (4) Pulmonary hypertension Plan: Defer management of patient's pulmonary condition as well as sleep apnea to primary care physician. (5) Cardiomyopathy (6) HTN (hypertension) (Audra Vasquez) Plan The exam, history, and the medical decision-making described in the above note were completed with the assistance of the PA-C. I reviewed and agree with the findings presented. (No Rowan MD) Audra Vasquez Jul 28, 2016 17:28 No Rowan MD Jul 29, 2016 13:39
[2016-07-28 20:01] VITALS: BP 151/88; PULSE 92; RESP 21; TEMP 96.4; O2SAT 94
[2016-07-29] VITALS (9 sets, daily range): BP systolic 94–121; BP diastolic 53–68; PULSE 57–106; RESP 16–20; TEMP 96–97.5; O2SAT 91–100
[2016-07-29] MEDS: ACETAMINOPHEN/HYDROcodone 325 MG/5 MG TAB PO PRN ×3 (02:04→15:49)
[2016-07-29 03:52] LABS: KAPPA/LAMBDA FREE 9.35 (0.26-1.65)
[2016-07-29] MEDS ORDERED: HYDROmorphone HCL PF 2 MG/ML VIAL IVS ONE (04:15)
[2016-07-29] MEDS: LEVOTHYROXINE SODIUM 25 MCG TAB PO SCH (05:42)
[2016-07-29] MEDS: LOPERAMIDE HCL 2 MG CAP PO PRN ×2 (05:42→12:58)
[2016-07-29 06:20] LABS: BICARBONATE 31.6 MEQ/L (21.0-32.0)
[2016-07-29] MEDS: DOCUSATE SODIUM 100 MG CAP PO SCH ×2 (09:00→20:52)
[2016-07-29] MEDS: TAMSULOSIN HCL 0.4 MG CAP PO SCH (09:55)
[2016-07-29] MEDS: ALPRAZolam 0.5 MG TAB PO SCH ×2 (09:55→20:52)
[2016-07-29] MEDS: BUMETANIDE INJ 1 MG/4 ML VIAL IV PUSH SCH (09:56)
[2016-07-29] MEDS: ALBUMIN HUMAN 25% 12.5 GM/50 ML BAGP IV SCH ×2 (09:56→22:39)
[2016-07-29] MEDS: METOPROLOL TARTRATE 25 MG TAB PO SCH ×3 (09:56→20:58)
[2016-07-29] MEDS: SODIUM CHLORIDE 0.9% FLUSH 5 ML FLUSH IV FLUSH SCH ×2 (09:58→20:53)
[2016-07-29] MEDS: FLUTICASONE PROPIONATE 50 MCG/ACT 16 GM NASAL SPRAY NASAL SCH ×2 (09:59→20:53)
[2016-07-29] MEDS: RESP: ALBUTEROL 2.5 MG/IPRATROPIUM 0.5 MG NEB (PRN) INH (12:47)
--- NOTE | 2016-07-29 13:47 | HHI.NPPN ---
Subjective History of Present Illness This patient is a 65-year-old male who gives a history of having acute renal insufficiency while admitted to [facility] last month. According to patient he was told that he had pneumonia and acute renal insufficiency. He received IV fluids according to the patient he developed edema which worsened post discharge. He indicated to me that a kidney specialist indicated that he required dialysis during that admission but subsequently his kidney numbers may have improved and this was no longer a consideration at the time of discharge. Patient has no recollection of being told that he had a kidney condition prior to that admission. Patient indicates edema has worsened in the last week involving his scrotum. Denies using NSAIDs as an outpatient. No history of collagen vascular disease, nephrolithiasis, viral hepatitis. He also informed me that prior to his admission I june he was ambulatory but subsequently was discharged to rehabilitation. Interval History Still complaining of generalized edema. Review of Systems Cardiovascular Cardiac: Edema Objective Data Data 07/28/16 07/29/16 19:00 07:00 Intake Total 1300 ml 600 ml Output Total 1700 ml 550 ml Balance -400 ml 50 ml Intake Oral 1160 ml 600 ml IV Total 140 ml Output Urine Total 1700 ml 550 ml # Bowel Movements 6 6 Vital Signs Date Time Temp Pulse Resp B/P Pulse Ox O2 Delivery O2 Flow Rate FiO2 07/29/16 09:48 91 Nasal Cannula 3.00 07/29/16 08:00 96.0 100 18 97/53 94 07/29/16 04:00 96.0 106 20 96/66 92 07/29/16 00:03 96.0 104 20 116/67 92 07/28/16 21:00 3.00 07/28/16 20:01 96.4 92 21 151/88 94 07/28/16 18:43 Nasal Cannula 3.00 Humidified 07/28/16 18:11 Nasal Cannula 5.00 07/28/16 15:45 95.4 99 20 140/69 92 -: 07/28/16 0500 07/29/16 0514 Physical Exam General Appearance: No Acute Distress Pulmonary Resp Exam: Breath Sounds Equal, Diminished Breath Sounds Cardiology CV Exam: Regular, Normal Sinus Rhythm Gastrointestinal/Abdomen GI Exam: Distended Integumentary Skin Exam: Warm Extremeties Extremities Exam: Pitting Edema (3+ edema of extremities, edema scrotum. Edema dependent torso.), Dependent Edema Neurologic Neuro Exam: Alert, Awake, Oriented Psychiatric Psych Exam: Appropriate Responses Assessment/Plan Problem List: (1) Anasarca Plan: Patient still has profound generalized edema. Patient basically cannot remain in this state. Although BUN/creatinine have risen I believe that we do need to try and continue diuresis if tolerated. I suspect that the GFR calculated is underestimating severity of the patient's renal clearance and this patient may even have end-stage renal disease. Continue diuretics over the weekend but if no headway is made improving his volume status and or there is worsening azotemia I rise the patient that we may need to consider dialytic support with ultrafiltration for fluid removal. He is in agreement. In addition although the serum protein electrophoresis did not show monoclonal protein the patient's kappa/lambda light chain ratio is elevated and the [place] light chain appears to be significantly elevated. Would like hematology opinion regarding this. Medications should be adjusted for the patient's estimated GFR if clinically indicated. Avoid agents with significant potential for nephrotoxicity possible including NSAIDs for analgesia, iodine contrast agents. Gadolinium is contraindicated if the GFR is below 30. (2) CKD (chronic kidney disease) stage 3, GFR 30-59 ml/min Plan: May be related to nephrosclerosis of hypertension and aging. Also the patient may be predisposed to development of focal segmental glomerulosclerosis secondary to morbid obesity. (3) CHF exacerbation Plan: Plan of management as above. (4) Pulmonary hypertension Plan: Defer management of patient's pulmonary condition as well as sleep apnea to primary care physician. (5) Cardiomyopathy (6) HTN (hypertension) Plan The exam, history, and the medical decision-making described in the above note were completed with the assistance of the ИРИНА. I reviewed and agree with the findings presented. No Rowan MD Jul 29, 2016 13:47
--- NOTE | 2016-07-29 14:00 | HHI.PR ---
Subjective Remarks Follow-up visit recent kidney function, hospital-acquired pneumonia, CHF exacerbation. Patient seen today. States he is doing well. On 3 L nasal cannula. Denies SOB/dyspnea. Denies fevers, cough, chills, nausea, vomiting, diarrhea. Denies chest pain, palpitations, dizziness, headaches. Objective Vitals Vital Signs Date Time Temp Pulse Resp B/P Pulse Ox O2 Delivery O2 Flow Rate FiO2 07/29/16 09:48 91 Nasal Cannula 3.00 07/29/16 08:00 96.0 100 18 97/53 94 07/29/16 04:00 96.0 106 20 96/66 92 07/29/16 00:03 96.0 104 20 116/67 92 07/28/16 21:00 3.00 07/28/16 20:01 96.4 92 21 151/88 94 07/28/16 18:43 Nasal Cannula 3.00 Humidified 07/28/16 18:11 Nasal Cannula 5.00 07/28/16 15:45 95.4 99 20 140/69 92 I/O 07/28/16 07/28/16 07/28/16 07/29/16 07/29/16 07/29/16 07:00 15:00 23:00 07:00 15:00 23:00 Intake Total 1300 ml 360 ml 240 ml Output Total 1700 ml 300 ml 250 ml Balance -400 ml 60 ml -10 ml Intake Oral 1160 ml 360 ml 240 ml IV Total 140 ml Output Urine Total 1700 ml 300 ml 250 ml # Bowel Movements 6 1 5 Result Diagram: 07/28/16 0500 07/29/16 0514 Imaging Last Impressions Renal Ultrasound 07/26/16 0000 Signed Impressions: Service Date/Time: Tuesday, July 26, 2016 11:33 - CONCLUSION: Limited evaluation of the kidneys secondary to patient body habitus and nonvisualization of the left kidney. The right kidney cortex appears mildly thinned and increased in echotexture which may reflect chronic medical renal disease. No evidence of hydronephrosis. Farzaneh White MD Chest CT 07/21/16 1428 Signed Impressions: Service Date/Time: July 15:15 - CONCLUSION: 1. Dense consolidation of the left lower lobe. 2. Small bilateral effusions. 3. 3.0 x 1.9 cm pleural-based nodule on the left. This is indeterminate by CT imaging. No hilar or mediastinal adenopathy is seen. 4. There is fluid in the left upper quadrant surrounding the spleen. The spleen appears mildly enlarged. 5. Advanced cardiomegaly. Girma Metzger MD Chest X-Ray 07/21/16 1317 Signed Impressions: Service Date/Time: July 13:33 - CONCLUSION: 1. Cardiomegaly with consolidation of the left lung base. Subsegmental airspace disease right lung base. No prior study for comparison. Raoul Gasca MD Objective Remarks GENERAL: This is a morbidly obese male, in no apparent distress. HEENT: Normocephalic. Pupils equal round and reactive. Nose without bleeding. Airway patent. NECK: Trachea midline. No JVD. Supple. CARDIOVASCULAR: Irregular rate and rhythm without murmurs, gallops, or rubs. RESPIRATORY: Diminished breath sounds, fair air movement. No use of accessory muscles. On 3 L nasal cannula GASTROINTESTINAL: Abdomen soft, non-tender, nondistended. Bowel Sounds normoactive x4. MUSCULOSKELETAL: Extremities without clubbing, cyanosis. Edema +2 bilateral lower extremity and chronic venous stasis changes. Weeping. Scrotal edema present. Only Draining clear yellow urine. NEUROLOGICAL: Awake and alert. No focal neuro deficit. MANUEL. Normal speech. A/P Problem List: (1) Hospital-acquired pneumonia ICD Code: J18.9 Status: Acute (2) Acute and chronic respiratory failure ICD Code: J96.20 Status: Acute (3) CHF exacerbation ICD Code: I50.9 Status: Acute Assessment and Plan 65-year-old male with history of CAD with stents, atrial fibrillation on Coumadin, CHF, HTN, CKD stage III, NINO on BiPAP at night, chronic respiratory failure on home O2, presents from [facility] for worsening shortness of breath , weight gain, anasarca and decreased O2 saturations. Acute on Chronic Respiratory Failure: O2 dependent. Likely multifactorial secondary to pneumonia, CHF exacerbation, obesity hypoventilation syndrome & NINO. Patient on chronic O2. He denies hx of lung disease/COPD/emphysema/asthma. Imaging reviewed by me: CXR showed LLL opacity, CT chest showed LLL consolidation with b/l pleural effusions. - Improving but not at baseline yet. CKD stage III/anasarca: previously Cr 4.29 on 06/29/16 while admitted to for acute renal failure. Creatinine on arrival here 1.5. Renal function initially worsen since arrival here probably secondary to diuretics. - Patient is morbidly obese with marked fluid retention. - Serology negative hep B and hep C - Renal US showed limited evaluation of the kidney secondary to patient body habitus nonvisualization of the left kidney. Right kidney cortex appears mildly thinned and increased in echotexture which may reflect chronic medical renal disease. No evidence of hydronephrosis - Appreciate Nephrology following. On IV Bumex 2 mg twice a day. Albumin 12.5 mg twice a day. 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 - Nephrology okay with dose adjustment of Bumex. Switch Bumex 2 by mouth, will start Bumex 1 mg twice a day Health care Acquired Pneumonia: patient with recent hospitalization 3 weeks ago. Imaging as above. S/p IV Zosyn, Vanco, and Levaquin. - On Levaquin 750 mg every 48 hours - Duonebs q6h braydon and q4h prn. Continue bipap. Acute on Chronic systolic CHF: Echocardiogram shows LVEF 45-50%. BNP elevated. Imaging with b/l pleural effusions. 3+ edema on exam. Given IV Lasix 40mg x1. Continue IV Bumex per nephrology. Torsemide discontinued. NINO: continue patient's bipap at night CAD with stents, HTN, atrial fibrillation: chronic, stable, continue patient's metoprolol, Coumadin. Monitor daily INR. Hypothyroidism: chronic, stable, continue patient's levothyroxine. Morbid Obesity: BMI 59. Patient is nonambulatory for this past month or so. Consult PT. increase activities. Pulmonary Nodule: seen on chest CT. Outpatient follow up with pulmonology. Hale Catheter: patient reports he's had this for years. Continue Hale. DVT Prophylaxis: on Coumadin Written by Primo Weeks, acting as scribe for on 07/29/16 at 11:34. The documentation accurately reflects the work performed [id number] by al, Nathanael Woo D.O on 07/29/16 at 11:34. Discharge Planning Not ready for discharge Primo Martin Jul 29, 2016 14:00 Grabiel Woo DO Jul 29, 2016 22:23
[2016-07-29] MEDS: WARFARIN SOD 4 MG TAB PO SCH (15:45)
[2016-07-29] MEDS ORDERED: BUMETANIDE 1 MG TAB PO SCH (18:00)
[2016-07-29] MEDS: BUMETANIDE 1 MG TAB PO SCH (18:30)
[2016-07-30] VITALS (11 sets, daily range): BP systolic 86–139; BP diastolic 55–67; PULSE 85–124; RESP 18–31; TEMP 95.3–97.5; O2SAT 92–98
[2016-07-30] MEDS: LOPERAMIDE HCL 2 MG CAP PO PRN (02:27)
[2016-07-30] MEDS: ACETAMINOPHEN/HYDROcodone 325 MG/5 MG TAB PO PRN ×2 (02:30→09:42)
[2016-07-30] MEDS: LEVOTHYROXINE SODIUM 25 MCG TAB PO SCH (06:00)
[2016-07-30 07:53] LABS: KAPPA LAMBDA RATIO 1.95 (1.57-3.93)
--- NOTE | 2016-07-30 08:31 | HHI.PR ---
Subjective Remarks Follow-up for recent decline in kidney function, hospital-acquired pneumonia, CHF exacerbation. Mr. Farris is doing well. Denies any fever, chills. Had his breakfast. He is aware that he may need dialysis. Objective Vitals Vital Signs Date Time Temp Pulse Resp B/P Pulse Ox O2 Delivery O2 Flow Rate FiO2 07/30/16 04:18 95.3 117 20 100/67 93 07/30/16 00:53 95.4 07/30/16 00:50 95.4 07/30/16 00:14 95.5 105 21 133/65 93 07/29/16 23:03 93 Nasal Cannula 5.00 07/29/16 21:00 3.00 07/29/16 20:50 96.6 71 20 103/55 94 07/29/16 16:00 96.5 96 18 94/54 94 07/29/16 15:09 96.1 57 18 95/68 96 07/29/16 09:48 91 Nasal Cannula 3.00 I/O 07/29/16 07/29/16 07/29/16 07/30/16 07/30/16 07/30/16 07:00 15:00 23:00 07:00 15:00 23:00 Intake Total 240 ml 240 ml 240 ml Output Total 250 ml 100 ml 125 ml Balance -10 ml 140 ml 115 ml Intake Oral 240 ml 240 ml 240 ml Output Urine Total 250 ml 100 ml 125 ml # Bowel Movements 5 0 0 Result Diagram: 07/28/16 0500 07/29/16 0514 Imaging Last Impressions Renal Ultrasound 07/26/16 0000 Signed Impressions: Service Date/Time: Tuesday, July 26, 2016 11:33 - CONCLUSION: Limited evaluation of the kidneys secondary to patient body habitus and nonvisualization of the left kidney. The right kidney cortex appears mildly thinned and increased in echotexture which may reflect chronic medical renal disease. No evidence of hydronephrosis. Farzaneh White MD Chest CT 07/21/16 1428 Signed Impressions: Service Date/Time: July 15:15 - CONCLUSION: 1. Dense consolidation of the left lower lobe. 2. Small bilateral effusions. 3. 3.0 x 1.9 cm pleural-based nodule on the left. This is indeterminate by CT imaging. No hilar or mediastinal adenopathy is seen. 4. There is fluid in the left upper quadrant surrounding the spleen. The spleen appears mildly enlarged. 5. Advanced cardiomegaly. Girma Metzger MD Chest X-Ray 07/21/16 1317 Signed Impressions: Service Date/Time: July 13:33 - CONCLUSION: 1. Cardiomegaly with consolidation of the left lung base. Subsegmental airspace disease right lung base. No prior study for comparison. Raoul Gasca MD Objective Remarks GENERAL: Alert, oriented X 3, NAD. Morbidly obese. SKIN: Warm and dry. HEAD: Normocephalic. EYES: No scleral icterus. No injection or drainage. NECK: Supple, trachea midline. No JVD or lymphadenopathy. CARDIOVASCULAR: Regular rate and rhythm without murmurs, gallops, or rubs. RESPIRATORY: Breath sounds equal bilaterally. No accessory muscle use. GASTROINTESTINAL: Abdomen soft, non-tender, nondistended. MUSCULOSKELETAL: No cyanosis. 2+ edema and erythema, venous stasis on bilateral lower ext. BACK: Nontender without obvious deformity. No CVA tenderness. Procedures None. A/P Problem List: (1) Hospital-acquired pneumonia ICD Code: J18.9 Status: Acute (2) Acute and chronic respiratory failure ICD Code: J96.20 Status: Acute (3) CHF exacerbation ICD Code: I50.9 Status: Acute Assessment and Plan 65-year-old male with history of CAD with stents, atrial fibrillation on Coumadin, CHF, HTN, CKD stage III, NINO on BiPAP at night, chronic respiratory failure on home O2, presents from [facility] for worsening shortness of breath , weight gain, anasarca and decreased O2 saturations. Acute on Chronic Respiratory Failure: O2 dependent. Likely multifactorial secondary to pneumonia, CHF exacerbation, obesity hypoventilation syndrome & NINO. Patient on chronic O2. He denies hx of lung disease/COPD/emphysema/asthma. Imaging reviewed by me: CXR showed LLL opacity, CT chest showed LLL consolidation with b/l pleural effusions. - Improving but not at baseline yet. CKD stage III/anasarca: previously Cr 4.29 on 06/29/16 while admitted to for acute renal failure. Creatinine on arrival here 1.5. Renal function initially worsen since arrival here probably secondary to diuretics. - Patient is morbidly obese with marked fluid retention. - Serology negative hep B and hep C - Renal US showed limited evaluation of the kidney secondary to patient body habitus nonvisualization of the left kidney. Right kidney cortex appears mildly thinned and increased in echotexture which may reflect chronic medical renal disease. No evidence of hydronephrosis - Appreciate Nephrology following. On IV Bumex 2 mg twice a day. Albumin 12.5 mg twice a day. MEDICAL ECONOMICS CONSULTANT 1.81-->2.09 -->2.47 today. - Nephrology okay with dose adjustment of Bumex. Switch Bumex 2 by mouth, will start Bumex 1 mg twice a day - Per nephrology, patient may need dialysis. Patient is aware. Health care Acquired Pneumonia: patient with recent hospitalization 3 weeks ago. Imaging as above. S/p IV Zosyn, Vanco, and Levaquin. - On Levaquin 750 mg every 48 hours - total 3 doses. - Duonebs q6h braydon and q4h prn. Continue bipap. Acute on Chronic systolic CHF: Echocardiogram shows LVEF 45-50%. BNP elevated. Imaging with b/l pleural effusions. 3+ edema on exam. Given IV Lasix 40mg x1. Continue IV Bumex per nephrology. Torsemide discontinued. NINO: continue patient's bipap at night CAD with stents, HTN, atrial fibrillation: chronic, stable, continue patient's metoprolol, Coumadin. Monitor daily INR. Hypothyroidism: chronic, stable, continue patient's levothyroxine. Morbid Obesity: BMI 59. Patient is nonambulatory for this past month or so. Consult PT. increase activities. Pulmonary Nodule: seen on chest CT. Outpatient follow up with pulmonology. Hale Catheter: patient reports he's had this for years. Continue Hale. DNR. Warfarin. Grabiel Woo DO Jul 30, 2016 8:31 am Grabiel Woo DO Jul 30, 2016 8:31 am
[2016-07-30] MEDS: DOCUSATE SODIUM 100 MG CAP PO SCH ×2 (09:00→20:09)
[2016-07-30] MEDS: ALBUMIN HUMAN 25% 12.5 GM/50 ML BAGP IV SCH (09:40)
[2016-07-30] MEDS: FLUTICASONE PROPIONATE 50 MCG/ACT 16 GM NASAL SPRAY NASAL SCH ×2 (09:40→20:17)
[2016-07-30] MEDS: BUMETANIDE 1 MG TAB PO SCH ×2 (09:41→15:15)
[2016-07-30] MEDS: TAMSULOSIN HCL 0.4 MG CAP PO SCH (09:41)
[2016-07-30] MEDS: ALPRAZolam 0.5 MG TAB PO SCH ×2 (09:41→20:09)
[2016-07-30] MEDS: SODIUM CHLORIDE 0.9% FLUSH 5 ML FLUSH IV FLUSH SCH ×2 (09:58→20:17)
[2016-07-30 11:12] LABS: BICARBONATE 27.7 MEQ/L (21.0-32.0); POTASSIUM 3.5 MEQ/L (3.5-5.1)
[2016-07-30] MEDS ORDERED: BUMETANIDE INJ 1 MG/4 ML VIAL IV PUSH ONE (11:45)
[2016-07-30] MEDS: LEVOFLOXACIN 750 MG TAB PO SCH (12:19)
--- NOTE | 2016-07-30 12:50 | RADRPT ---
EXAM DATE/TIME: 07/30/2016 11:45 [facility] COMPARISON: Prior study 07/21/2016 available for comparison. INDICATIONS : Shortness of breath. MEDICAL HISTORY : Chronic obstructive pulmonary disease. Atrial fibrillation. SURGICAL HISTORY : Stent. ENCOUNTER: Initial ACUITY: 1 day PAIN SCORE: Non-responsive. LOCATION: Bilateral chest FINDINGS: A single view of the chest again demonstrates the heart is enlarged. There are air bronchograms of t he left hilum and left lower lobe with a significant infiltrate. Right lung volume is diminished. B one windows are unremarkable. CONCLUSION: Persistent consolidation in the left lung base. Heart remains enlarged. Persistent mild perihilar v ascular congestion. Ruiz Paniagua MD on July 30, 2016 at 12:44 Board Certified Radiologist. This report was verified electronically.
[2016-07-30 12:51] LABS: BLOOD GAS BASE EXCESS -1.4 mmol/L (-2-2); BLOOD GAS CARBOXYHEMOGLOBIN 1.6 % (0-4); BLOOD GAS HCO3 25 mmol/L (22-26); BLOOD GAS METHEMOGLOBIN 0.8 % (0-2); BLOOD GAS O2 HGB SATURATION 97 % (90-100); BLOOD GAS OXYGEN CONTENT 16.1 Vol % (12.0-20.0); BLOOD GAS PCO2 60 mmHg (38-42); BLOOD GAS PO2 187 mmHg (61-120); BLOOD GAS TOTAL HGB 11.5 G/DL (12.0-16.0); TEMP CORR TO 98.6
[2016-07-30 12:52] LABS: CRITICAL VALUE YES; DRAW SITE LT RADIAL; LITER FLOW 15 L/M; NUMBER OF ARTERIAL PUNCTURES 1; STAT NO; ULNAR PULSE Y
--- NOTE | 2016-07-30 12:56 | MB ---
cc: KERLINE HARO DATE OF CONSULTATION: 07/30/2016 CHIEF COMPLAINT I was short of breath, duration several days. HISTORY OF PRESENT ILLNESS This patient is a 65-year-old man. He has multiple medical problems including coronary artery disease, atrial fibrillation, congestive heart failure, hypertension, chronic kidney disease, obstructive sleep apnea, chronic respiratory failure, recent weight gain, and hypoxemia. The patient lived in [place]. He received care at [facility] in [place]. He worsened, he came to the emergency room, he had studies. He entered the hospital for hospital-acquired pneumonia. In the course of the patient's evaluation, he had abnormal immunoglobulin studies. These studies indicated free kappa light chains of 201 with a kappa-lambda ratio of 9.3. There were normal lambda light chains. The director multimedia requested a hematology consultation. The patient does have chronic kidney disease. PRIOR HOSPITALIZATIONS AND MEDICAL EXAMS 1. Hearing loss. 2. Congestive heart failure. 3. Cardiac stents. 4. Atrial fibrillation. 5. Hypercholesterolemia. 6. Hypertension. 7. Sleep apnea. 8. Morbid obesity. 9. Chronic kidney disease. 10. Chronic back problems. 11. Degenerative arthritis. 12. Anxiety. ALLERGIES CEFEPIME AND HEPARIN. MEDICATIONS AT THE TIME OF ADMISSION 1. Xanax 0.5 b.i.d. 2. Dulcolax 10 mg p.o. q.h.s. p.r.n. 3. Zostrix one topical application q.8 hours. 4. Colace 100 mg b.i.d. 5. Vibramycin 100 mg b.i.d. 6. Xopenex nebulizer t.i.d. 7. Synthroid 25 mcg daily. 8. Milk of Magnesia 30 cc p.r.n. 9. Metoprolol 12.5 mg b.i.d. 10. Oxycodone 5 mg q.6 hours p.r.n. 11. Fleets enemas p.r.n. 12. Flomax 0.4 q.daily. 13. Warfarin 4 mg daily. 14. Torsemide 20 mg daily. SOCIAL HISTORY This man lives in [place]. He is legally . He is unemployed. FAMILY HISTORY Noncontributory. HABITS The patient denies tobacco, substance and alcohol abuse. REVIEW OF SYSTEMS: Patient does not complain of recent appetite or weight change, fever, chills, night sweats, temperature, headache, double vision or recent visual change. Recent hearing or taste alterations are not reported. There are no reports of swallowing difficulty, chest pain, dyspnea, orthopnea, paroxysmal nocturnal dyspnea, hematochezia, or constipation. Patient makes no complaint of dysuria, pyuria, frequency, urgency, hematuria, skin eruption or skin breakdown. Patient does sensory perception, insight, affect or mentation. Note: I did review the nurse 13-point review of systems and he does admit to hearing loss, visual problems, congestive heart failure, a history of cardiac stents, Coumadin for atrial fibrillation, hypertension, COPD, BiPAP, sleep apnea, morbid obesity, chronic kidney disease with Hale catheter, chronic back pain, joint problems, anxiety, as well as fatigue. PHYSICAL EXAMINATION: GENERAL: This man is morbidly obese. VITAL SIGNS: His temperature is 95, his pulse is 117, his respirations are 20, his blood pressure is 100/67, he is on 5 liters oxygen with a pulse oximetry of 93%. HEAD: No pain, irregularities or exostosis. EARS: External anatomy is normal; ear canals are normal. NOSE: No cysts or deviation of nasal septa appreciated. MOUTH: Tongue is in midline; uvula is non-deviated. No masses are evident. Dentition is acceptable. NECK: Pulses are full and equal bilaterally. No bruits are identified. No goiter or masses are palpated. CHEST: Appearance is normal with adequate expansion. LUNGS: Examination of the lungs showed diminished chest wall expansion. HEART: Normal S1 and S2 are present. There are no bruits, lifts, murmurs or thrills. S3 and S4 are absent. ABDOMEN: Abdomen is scaphoid. There is no localized tenderness or rebound. There are no masses. The liver and spleen cannot be palpated. There are normal bowel sounds. INGUINAL: Exam not performed. GENITALIA: Exam not performed. RECTAL: Exam not performed. EXTREMITIES: Examination of the extremities reveals degenerative changes as well as venous changes in both lower extremities with weeping and early findings of skin ulceration. NEUROLOGIC: Adequate motor power and sensory perception is appreciated. Reflexes are symmetric and bilateral. There is good mentation, insight and affect. LYMPHATIC: Pathologic adenopathy is not appreciated. SKIN: The skin surface integrity is maintained symmetrically without edema or breakdown except for both lower extremities which evidence marked early venous ulcerative changes. ASSESSMENT 1. Abnormal tests with markedly elevated free kappa-lambda light chain. 2. Morbid obesity. 3. Hearing loss. 4. Arteriosclerotic heart disease with atrial fibrillation and history of stents. 5. Hypertension. 6. COPD. 7. Sleep apnea. 8. Degenerative arthritis. 9. Chronic kidney disease. 10. Chronic back pain. 11. Early venous ulcerations both lower extremities. RECOMMENDATIONS This man has an abnormal free kappa-lambda light chain ratio. The ratio was 9, the normal ratio is about 1.6. This patient may have an early myeloma. He should have a bone marrow. Thank you for this consultation. Note, a rectal, inguinal and genital exam was not performed. MD CHRISTY Patino/NITA /9:49 AM /12:27 PM TIFFANIE
[2016-07-30 13:15] LABS: APTT (PATIENT) 32.9 SEC (24.3-30.1); INTERNATIONAL NORMALIZED RATIO 2.1 RATIO; PROTHROMBIN TIME - PATIENT 24.4 SEC (9.8-11.6)
[2016-07-30] MEDS: WARFARIN SOD 4 MG TAB PO SCH (15:16)
--- NOTE | 2016-07-30 15:28 | HHI.NPPN ---
Subjective History of Present Illness This patient is a 65-year-old male who gives a history of having acute renal insufficiency while admitted to [facility] last month. According to patient he was told that he had pneumonia and acute renal insufficiency. He received IV fluids according to the patient he developed edema which worsened post discharge. He indicated to me that a kidney specialist indicated that he required dialysis during that admission but subsequently his kidney numbers may have improved and this was no longer a consideration at the time of discharge. Patient has no recollection of being told that he had a kidney condition prior to that admission. Patient indicates edema has worsened in the last week involving his scrotum. Denies using NSAIDs as an outpatient. No history of collagen vascular disease, nephrolithiasis, viral hepatitis. He also informed me that prior to his admission I can June he was ambulatory but subsequently was discharged to rehabilitation. Interval History Patient having increasing shortness of breath and a fall in oxygen saturation. Now on BiPAP. Daughter now in the room. Initially the patient told me that he was not on dialysis when he was admitted to [facility] but according to the daughter he was on dialysis temporarily. Review of Systems Respiratory Lungs: SOB Cardiovascular Cardiac: Edema Objective Data Data 07/29/16 07/30/16 19:00 07:00 Intake Total 480 ml Output Total 225 ml Balance 255 ml Intake Oral 480 ml Output Urine Total 225 ml # Bowel Movements 0 Vital Signs Date Time Temp Pulse Resp B/P Pulse Ox O2 Delivery O2 Flow Rate FiO2 07/30/16 10:51 98 Partial Rebreather 15.00 07/30/16 08:00 96.5 113 18 109/55 95 07/30/16 08:00 95 Nasal Cannula 5.00 Humidified 07/30/16 04:18 95.3 117 20 100/67 93 07/30/16 00:53 95.4 07/30/16 00:50 95.4 07/30/16 00:14 95.5 105 21 133/65 93 07/29/16 23:03 93 Nasal Cannula 5.00 07/29/16 21:00 3.00 07/29/16 20:50 96.6 71 20 103/55 94 07/29/16 16:00 96.5 96 18 94/54 94 -: 07/28/16 0500 07/30/16 1035 Physical Exam General Appearance: No Acute Distress (mild respiratory distress.) Pulmonary Resp Exam: Breath Sounds Equal, Diminished Breath Sounds Cardiology CV Exam: Regular, Normal Sinus Rhythm Gastrointestinal/Abdomen GI Exam: Distended Integumentary Skin Exam: Warm Extremeties Extremities Exam: Pitting Edema (3+ edema of extremities, edema scrotum. Edema dependent torso.), Dependent Edema Neurologic Neuro Exam: Alert, Awake, Oriented Psychiatric Psych Exam: Appropriate Responses Assessment/Plan Discussed Condition With: Patient, Daughter Problem List: (1) Anasarca Plan: The patient now with worsening azotemia as well as signs of pulmonary edema and persisting generalized edema. Patient had minimal response to parenteral high-dose diuretics. At this point in time recommend transfer to the ICU and starting a bumetanide drip. If no significant improvement in his volume status and or there is significant worsening of his azotemia I would recommend initiation of dialysis again. This was discussed with the patient and his daughter who are both in agreement. I reviewed the hematological consultation and it is noted that a bone marrow has been recommended. Appreciate input. I suspect that the GFR calculated is underestimating severity of the patient's renal clearance and this patient may even have end-stage renal disease. Medications should be adjusted for the patient's estimated GFR if clinically indicated. Avoid agents with significant potential for nephrotoxicity possible including NSAIDs for analgesia, iodine contrast agents. Gadolinium is contraindicated if the GFR is below 30. (2) CKD (chronic kidney disease) stage 3, GFR 30-59 ml/min Plan: May be related to nephrosclerosis of hypertension and aging. Also the patient may be predisposed to development of focal segmental glomerulosclerosis secondary to morbid obesity. (3) CHF exacerbation Plan: Plan of management as above. (4) Pulmonary hypertension Plan: Defer management of patient's pulmonary condition as well as sleep apnea to primary care physician. (5) Cardiomyopathy (6) HTN (hypertension) No Rowan MD Jul 30, 2016 15:28
--- NOTE | 2016-07-30 15:43 | HHI.PR ---
Subjective Remarks I was consulted by Dr. Woo for a patient transfer to the ICU for a bumex infusion. In brief, this is a 65yM with long medical history, including CAD with stents, atrial fibrillation on Coumadin, CHF, HTN, CKD stage III, NINO on BiPAP at night , chronic respiratory failure on home O2, who initially presented with hypoxia, thought to be HCAP, CHF exacerbation, and new acute on chronic kidney injury. I discussed the case with Dr. Woo and nephrology feels that the next step in management of the patient is to transition to a bumex infusion prior to instituting possible renal replacement therapy. Thus, ICU admission is required for continuous bumex infusion. I have briefly evaluated the patient and my pertinent findings are: morbidly obese gentleman lying in bed on BiPAP, fio2 50%, 12/5. somnolent but arousable. Mallampatti class IV, short thyromental distance, large neck circumference. distant breath sounds and muffled cardiac sounds due to morbid obesity, but clear to auscultation and cardiac sounds without overt appreciable murmurs. he is not tachypneic and not in distress. K 3.5, serum bicarb 27. CXR demonstrates dense LLL consolidation. I agree with Dr. Woo that the patient meets ICU criteria for continuous bumex infusion. I agree with the anticipated plan of bumex infusion with intermittent prn BiPAP (home BiPAP use), abx, and oxygen as needed. In my brief review of the medical record, I agree with nephrology that there is no current indication for emergent renal replacement therapy. I did talk with Dr. Woo that given his echo findings of right ventricular dysfunction and severe pulmonary hypertension with NINO, he is likely to have early cor pulmonale, and I would recommend being aggressive with early renal replacement therapy if no improvement with bumex infusion. Per the documentation, the patient is a DNR, and Dr. Woo is re-confirming whether or not he would want to be DNI or intubated. He would be an anticipated difficult mask ventilation and difficult intubation. Critical Care Medicine team will be peripherally aware of the patient. We will defer primary medical management of the patient to the hospitalist and nephrology teams. We will be happy to see the patient again at the request of the health care team. Please call or contact us with questions or concerns. Frank Marin MD Jul 30, 2016 15:43
[2016-07-30 17:11] LABS: INDIRECT BILIRUBIN 0.4 MG/DL (0.0-0.8); TOTAL BILIRUBIN ADULT 0.6 MG/DL (0.2-1.0)
[2016-07-30] MEDS: BUMETANIDE INJ 100 ML IV SCH (18:05)
[2016-07-30] MEDS: METOPROLOL TARTRATE 25 MG TAB PO SCH (19:30)
[2016-07-31] VITALS (17 sets, daily range): BP systolic 96–102; BP diastolic 54–65; PULSE 110–133; RESP 16–31; TEMP 97.3–98.5; O2SAT 92–99
[2016-07-31] MEDS: BUMETANIDE INJ 100 ML IV SCH (05:23)
[2016-07-31] MEDS: LEVOTHYROXINE SODIUM 25 MCG TAB PO SCH (05:23)
[2016-07-31 07:30] LABS: INTERNATIONAL NORMALIZED RATIO 1.9 RATIO; PROTHROMBIN TIME - PATIENT 21.7 SEC (9.8-11.6)
[2016-07-31] MEDS: FLUTICASONE PROPIONATE 50 MCG/ACT 16 GM NASAL SPRAY NASAL SCH ×2 (09:00→20:26)
[2016-07-31] MEDS: ALPRAZolam 0.5 MG TAB PO SCH (09:30)
[2016-07-31] MEDS: DOCUSATE SODIUM 100 MG CAP PO SCH ×2 (09:30→20:26)
[2016-07-31] MEDS: METOPROLOL TARTRATE 25 MG TAB PO SCH (09:30)
[2016-07-31] MEDS: TAMSULOSIN HCL 0.4 MG CAP PO SCH (09:30)
[2016-07-31] MEDS: SODIUM CHLORIDE 0.9% FLUSH 5 ML FLUSH IV FLUSH SCH ×2 (09:30→20:26)
--- NOTE | 2016-07-31 11:11 | PD.PROCEDR ---
Central Line Procedure REASON FOR PROCEDURE Central venous access PROCEDURE PERFORMED Central line placement: Right vascath placement CONSENT Informed consent for procedure was obtained . The risks and benefits of the procedure were discussed to include but limited to bleeding, clot formation, infection, and even . ANESTHESIA Local injection of 1% Lidocaine DESCRIPTION OF THE PROCEDURE The patient was placed in supine, mild Trendelenburg position. The area was exposed and cleansed with ChloraPrep, times two. Large sterile drape was used to cover the patient, with the site exposed, under sterile conditions including cap, face mask, sterile gown, and sterile gloves. On single attempt, the introducer needle was inserted with negative pressure in syringe and venous flash was obtained. The guide wire was then advanced without any restriction and the needle was removed. The dilator was used without any complications. Using Seldinger technique the catheter was advanced over the guide wire to a depth of 20 centimeters. The guide wire was removed. All ports were aspirated with dark venous blood return and flushed easily with sterile saline. All ports were capped. Antibiotic disc was placed around central line at puncture site. The central line was secured to the skin with two interrupted 2.0 silk sutures. The area was bandaged with sterile see-through central line bandage. RADIOLOGICAL DATA Ultrasound guidance was used to locate right IJ vein. CXR ordered to verify line placement COMPLICATIONS: No apparent complications ESTIMATED BLOOD LOSS: Less than 1 cc. Mary Anne Gant MD Jul 31, 2016 11:11
--- NOTE | 2016-07-31 12:00 | HHI.PR ---
Subjective Remarks Follow-up Anasarca/CTD stage III/CHF exacerbation/pulmonary hypertension/ cardiomyopathy and now hypotension 07/31/16-patient seen and examined over not responding to any of my questions. Patient was unable to use BiPAP last night. Vas-Cath placed this morning by bisque placer. BP low and heart rate up ; minimal urine output. Case discussed with ROGELIO Hernandez Objective Vitals Vital Signs Date Time Temp Pulse Resp B/P Pulse Ox O2 Delivery O2 Flow Rate FiO2 07/31/16 09:13 97 Partial Rebreather 07/31/16 06:00 121 07/31/16 04:00 120 07/31/16 04:00 97.8 120 16 97/54 92 07/31/16 02:00 118 07/31/16 00:00 97.6 129 31 96/65 97 07/31/16 00:00 129 07/30/16 22:00 124 07/30/16 20:17 94 Partial Rebreather 07/30/16 20:00 97.5 114 31 86/63 93 07/30/16 20:00 114 07/30/16 19:00 93 Partial Non-Rebreather 12.00 07/30/16 18:00 85 07/30/16 18:00 96.7 85 19 139/64 92 07/30/16 15:25 96 50 07/30/16 15:24 96 Bi-Pap 12.00 50 I/O 07/30/16 07/30/16 07/30/16 07/31/16 07/31/16 07/31/16 07:00 15:00 23:00 07:00 15:00 23:00 Intake Total 240 ml 100 ml 270 ml 305 ml Output Total 125 ml 400 ml 240 ml 100 ml Balance 115 ml -300 ml 30 ml 205 ml Intake Oral 240 ml 240 ml 240 ml IV Total 100 ml 30 ml 65 ml Output Urine Total 125 ml 400 ml 240 ml 100 ml # Bowel Movements 0 0 0 Result Diagram: 07/28/16 0500 07/31/16 0600 Imaging Last Impressions Chest X-Ray 07/30/16 0000 Signed Impressions: Service Date/Time: Saturday, July 30, 2016 11:45 - CONCLUSION: Persistent consolidation in the left lung base. Heart remains enlarged. Persistent mild perihilar vascular congestion. Ruiz Paniagua MD Renal Ultrasound 07/26/16 0000 Signed Impressions: Service Date/Time: Tuesday, July 26, 2016 11:33 - CONCLUSION: Limited evaluation of the kidneys secondary to patient body habitus and nonvisualization of the left kidney. The right kidney cortex appears mildly thinned and increased in echotexture which may reflect chronic medical renal disease. No evidence of hydronephrosis. Farzaneh White MD Chest CT 07/21/16 1428 Signed Impressions: Service Date/Time: July 15:15 - CONCLUSION: 1. Dense consolidation of the left lower lobe. 2. Small bilateral effusions. 3. 3.0 x 1.9 cm pleural-based nodule on the left. This is indeterminate by CT imaging. No hilar or mediastinal adenopathy is seen. 4. There is fluid in the left upper quadrant surrounding the spleen. The spleen appears mildly enlarged. 5. Advanced cardiomegaly. Girma Metzger MD Objective Remarks GENERAL: Obese patient in no acute distress SKIN: Warm and dry. HEAD: Normocephalic. EYES: No scleral icterus. No injection or drainage. NECK: Supple, trachea midline. No JVD or lymphadenopathy. Vas-Cath in place right neck CARDIOVASCULAR: Irregular Regular rate and rhythm without murmurs, gallops, or rubs. RESPIRATORY: Breath sounds equal bilaterally. No accessory muscle use. GASTROINTESTINAL: Obese patient, Abdomen , non-tender, distended. MUSCULOSKELETAL: No cyanosis; Anasarca BACK: Nontender without obvious deformity. No CVA tenderness. Procedures None. A/P Problem List: (1) Hospital-acquired pneumonia ICD Code: J18.9 Status: Acute (2) Acute and chronic respiratory failure ICD Code: J96.20 Status: Acute (3) CHF exacerbation ICD Code: I50.9 Status: Acute (4) Anasarca ICD Code: R60.1 Status: Acute (5) Pulmonary hypertension ICD Code: I27.2 Status: Acute (6) Cardiomyopathy ICD Code: I42.9 Status: Acute (7) CKD (chronic kidney disease) stage 3, GFR 30-59 ml/min ICD Code: N18.3 Status: Acute (8) Morbid obesity with BMI of 60.0-69.9, adult ICD Code: E66.01 Status: Acute Assessment and Plan 65-year-old male with Acute on Chronic Respiratory Failure: O2 dependent. Likely multifactorial secondary to pneumonia, CHF exacerbation, obesity hypoventilation syndrome & NINO. Patient on chronic O2. He denies hx of lung disease/COPD/emphysema/asthma. CXR showed LLL opacity, CT chest showed LLL consolidation with b/l pleural effusions. Continue with BiPAP at night, DuoNeb, maintain oxygen saturation above 92% CKD stage III/anasarca: Currently on Bumex drip, status post Vas-Cath placement today 07/31/16. Likely plan for hemodialysis 08/01/16. Appreciate input from nephrology Health care Acquired Pneumonia: S/p IV Zosyn and Vanco, and currently on Levaquin to be completely 08/01/16. Continue with DuoNeb, BiPAP at night and maintain oxygen saturation above 92% Acute on Chronic systolic CHF: Echocardiogram shows LVEF 45-50%. BNP elevated. Torsemide discontinued. Currently on Bumex drip Cardiomyopathy: Treat as in acute on chronic systolic CHF History of hypertension: However currently hypotensive with a MAP of 58, may consider pressors if no improvement. Patient's treatment complicated by the fact that he is currently on Bumex drip. Lopressor with holding parameter NINO: continue patient's bipap at night CAD with stents, HTN, atrial fibrillation: chronic, stable on Coumadin, metoprolol however held secondary to hypotension. Monitor daily INR. Hypothyroidism: chronic, stable, continue levothyroxine. Morbid Obesity: BMI 61.6. Patient is nonambulatory for this past month or so. PT to treat Pulmonary Nodule: seen on chest CT. Outpatient follow up with pulmonology. DVT prophylaxis. Warfarin. DO NOT RESUSCITATE/DO NOT INTUBATE Total time spent in the care of patient 33 minutes Pasquale Brian MD Jul 31, 2016 12:00
--- NOTE | 2016-07-31 12:12 | RADRPT ---
EXAM DATE/TIME: 07/31/2016 11:29 [facility] COMPARISON: No previous studies available for comparison. INDICATIONS : Vascath placement. MEDICAL HISTORY : Chronic obstructive pulmonary disease. Atrial fibrillation. SURGICAL HISTORY : Stent placement. ENCOUNTER: Initial ACUITY: 1 day PAIN SCORE: Non-responsive. LOCATION: Bilateral chest FINDINGS: A single view of the chest demonstrates there is a new right IJ vascath in good position. The tip ov erlies the SVC. The cardiac/pericardiac silhouette is quite enlarged. There is bilateral perihilar bilateral congestion. Marked volume loss in the left lung base. CONCLUSION: Vascath in good position. No evidence of a pneumothorax. Ruiz Paniagua MD on July 31, 2016 at 12:04 Board Certified Radiologist. This report was verified electronically.
--- NOTE | 2016-07-31 13:24 | HHI.CCPN ---
Subjective Remarks/Hospital Course I was consulted by Dr. Woo for a patient transfer to the ICU for a bumex infusion. In brief, this is a 65yM with long medical history, including CAD with stents, atrial fibrillation on Coumadin, CHF, HTN, CKD stage III, NINO on BiPAP at night , chronic respiratory failure on home O2, who initially presented with hypoxia, thought to be HCAP, CHF exacerbation, and new acute on chronic kidney injury. I discussed the case with Dr. Woo and nephrology feels that the next step in management of the patient is to transition to a bumex infusion prior to instituting possible renal replacement therapy. Thus, ICU admission is required for continuous bumex infusion. I have briefly evaluated the patient and my pertinent findings are: morbidly obese gentleman lying in bed on BiPAP, fio2 50%, 06/20. somnolent but arousable. Mallampatti class IV, short thyromental distance, large neck circumference. distant breath sounds and muffled cardiac sounds due to morbid obesity, but clear to auscultation and cardiac sounds without overt appreciable murmurs. he is not tachypneic and not in distress. K 3.5, serum bicarb 27. CXR demonstrates dense LLL consolidation. I agree with Dr. Woo that the patient meets ICU criteria for continuous bumex infusion. I agree with the anticipated plan of bumex infusion with intermittent prn BiPAP (home BiPAP use), abx, and oxygen as needed. In my brief review of the medical record, I agree with nephrology that there is no current indication for emergent renal replacement therapy. I did talk with Dr. Woo that given his echo findings of right ventricular dysfunction and severe pulmonary hypertension with NINO, he is likely to have early cor pulmonale, and I would recommend being aggressive with early renal replacement therapy if no improvement with bumex infusion. Per the documentation, the patient is a DNR, and Dr. Woo is re-confirming whether or not he would want to be DNI or intubated. He would be an anticipated difficult mask ventilation and difficult intubation. 07/31 Patient is on partial non rebreather, renal function worse today with Cr: 3.27 from 2.76 patient to start CVVHD per renal. Objective Vital Signs Date Time Temp Pulse Resp B/P Pulse Ox O2 Delivery O2 Flow Rate FiO2 07/31/16 12:54 93 Partial Non-Rebreather 12.00 07/31/16 06:00 121 07/31/16 04:00 97.8 16 97/54 07/30/16 15:25 50 Intake and Output 07/30/16 07/30/16 07/31/16 08:00 16:00 00:00 Intake Total 240 ml 100 ml 270 ml Output Total 125 ml 400 ml 240 ml Balance 115 ml -300 ml 30 ml Result Diagram: 07/28/16 0500 07/31/16 0600 Other Results Laboratory Tests Test 07/30/16 07/31/16 15:42 06:00 Lactic Acid Level 1.7 mmol/L Prothrombin Time 21.7 SEC Prothromb Time International 1.9 RATIO Ratio Sodium Level 138 MEQ/L Potassium Level 4.0 MEQ/L Chloride Level 99 MEQ/L Carbon Dioxide Level 29.9 MEQ/L Anion Gap 9 MEQ/L Blood Urea Nitrogen 44 MG/DL Creatinine 3.27 MG/DL Estimat Glomerular Filtration 19 ML/MIN Rate Random Glucose 156 MG/DL Calcium Level 8.8 MG/DL Imaging Last Impressions Chest X-Ray 07/30/16 0000 Signed Impressions: Service Date/Time: Saturday, July 30, 2016 11:45 - CONCLUSION: Persistent consolidation in the left lung base. Heart remains enlarged. Persistent mild perihilar vascular congestion. Ruiz Paniagua MD Renal Ultrasound 07/26/16 0000 Signed Impressions: Service Date/Time: Tuesday, July 26, 2016 11:33 - CONCLUSION: Limited evaluation of the kidneys secondary to patient body habitus and nonvisualization of the left kidney. The right kidney cortex appears mildly thinned and increased in echotexture which may reflect chronic medical renal disease. No evidence of hydronephrosis. Farzaneh White MD Chest CT 07/21/16 1428 Signed Impressions: Service Date/Time: July 15:15 - CONCLUSION: 1. Dense consolidation of the left lower lobe. 2. Small bilateral effusions. 3. 3.0 x 1.9 cm pleural-based nodule on the left. This is indeterminate by CT imaging. No hilar or mediastinal adenopathy is seen. 4. There is fluid in the left upper quadrant surrounding the spleen. The spleen appears mildly enlarged. 5. Advanced cardiomegaly. Girma Metzger MD Objective Remarks GENERAL: Patient is 65 yo critically ill on partial rebreather. SKIN: Warm and dry. HEAD: Normocephalic. EYES: No scleral icterus. No injection or drainage. NECK: Supple, trachea midline. No JVD or lymphadenopathy. CARDIOVASCULAR: Tachycardic without murmurs, gallops, or rubs. RESPIRATORY: Breath sounds equal bilaterally. No accessory muscle use. GASTROINTESTINAL: Abdomen soft, non-tender, nondistended. MUSCULOSKELETAL: No cyanosis, + edema. Neuro: Awake. Procedures None. A/P Assessment and Plan 1Resp Insuff 2) Acute on chronic renal failure 3) CHF/Cardiomyopathy 4)Mod-severe pulm HTN with PAP 75mmHg 5)CAD 6)Afib on Coumadin 7)Hx HTN 8)Anemia, thrombocytopenia 9)Hypothyroidism 10)Morbid obesity, NINO Plan Neuro: Awake, avoid sedatives Pulm: Wean down oxygen as jonel keep sat >92% Bronchodilators, NIPPV PRN during day and nocturnally qhs for NINO CV:Monitor HR and BP keep MAP>65mmHg. Hold lopressor ( borderline low BP) Echo showed EF 45-50%, PAP 75mmHg : Monitor renal function, I/O's, avoid nephrotoxins Spoke to Dr.. Dunn to start CVVHD Renal function worse today with Cr: 3.27 from 2.76, I?O's 740ml in 24 hrs GI: On PO diet ID: Continue with Levaquin, monitor for signs of infections ( Fever, WBC) Check UA with cx if indicated Heme: Monitor CBC Endo: SSI if needed for glycemic control GI prophylaxis DVT prophylaxis - on coumadin with INR 1.9 today Patient is critically ill with resp failure , renal failure now requiring dialysis, Mary Anne Gant MD Jul 31, 2016 13:24
[2016-07-31 13:25] LABS: MEAN CORPUSCULAR HGB CONC 29.9 % (32.0-36.0)
[2016-07-31] MEDS ORDERED: GLUCAGON 1 MG/ML VIAL OTHER PRN (13:30)
[2016-07-31] MEDS ORDERED: DEXTROSE 50% IN WATER 50 ML VIAL(D50) IV PUSH PRN (13:30)
[2016-07-31] MEDS: INSULIN NovoLIN REGULAR SUPPLEMENTAL SCALE SQ SCH ×2 (13:30→18:41)
[2016-07-31] MEDS ORDERED: RESP: ALBUTEROL 2.5 MG/IPRATROPIUM 0.5 MG NEB (PRN) NEB (13:30)
--- NOTE | 2016-07-31 13:42 | HHI.NPPN ---
Subjective History of Present Illness This patient is a 65-year-old male who gives a history of having acute renal insufficiency while admitted to [facility] last month. According to patient he was told that he had pneumonia and acute renal insufficiency. He received IV fluids according to the patient he developed edema which worsened post discharge. Initially the patient indicated to me that dialysis was not performed however I discussed his history with his daughter and she indicated that he was on dialysis temporarily in [place] and it was subsequently discontinued secondary to improved kidney function. Patient has no recollection of being told that he had a kidney condition prior to that admission. Patient indicates edema has worsened in the last week involving his scrotum. Denies using NSAIDs as an outpatient. No history of collagen vascular disease, nephrolithiasis, viral hepatitis. He also informed me that prior to his admission I can Donn he was ambulatory but subsequently was discharged to rehabilitation. Interval History Minimal response to high-dose bumetanide drip and the patient's renal indices are deteriorating. Respiratory status not improved. Daughter by bedside. Review of Systems Respiratory Lungs: SOB Cardiovascular Cardiac: Edema Objective Data Data 07/30/16 07/31/16 19:00 07:00 Intake Total 100 ml 575 ml Output Total 400 ml 340 ml Balance -300 ml 235 ml Intake Oral 480 ml IV Total 100 ml 95 ml Output Urine Total 400 ml 340 ml # Bowel Movements 0 Vital Signs Date Time Temp Pulse Resp B/P Pulse Ox O2 Delivery O2 Flow Rate FiO2 07/31/16 12:54 93 Partial Non-Rebreather 12.00 07/31/16 09:13 97 Partial Rebreather 07/31/16 07:00 93 Partial Non-Rebreather 15.00 07/31/16 06:00 121 07/31/16 04:00 120 07/31/16 04:00 97.8 120 16 97/54 92 07/31/16 02:00 118 07/31/16 00:00 97.6 129 31 96/65 97 07/31/16 00:00 129 07/30/16 22:00 124 07/30/16 20:17 94 Partial Rebreather 07/30/16 20:00 97.5 114 31 86/63 93 07/30/16 20:00 114 07/30/16 19:00 93 Partial Non-Rebreather 12.00 07/30/16 18:00 85 07/30/16 18:00 96.7 85 19 139/64 92 07/30/16 15:25 96 50 07/30/16 15:24 96 Bi-Pap 12.00 50 -: 07/28/16 0500 07/31/16 0600 Physical Exam General Appearance: No Acute Distress (mild respiratory distress.) Pulmonary Resp Exam: Breath Sounds Equal, Diminished Breath Sounds Cardiology CV Exam: Regular, Normal Sinus Rhythm Gastrointestinal/Abdomen GI Exam: Distended Integumentary Skin Exam: Warm Extremeties Extremities Exam: Pitting Edema (3+ edema of extremities, edema scrotum. Edema dependent torso.), Dependent Edema Neurologic Neuro Exam: Alert, Awake, Oriented Psychiatric Psych Exam: Appropriate Responses Assessment/Plan Discussed Condition With: Patient, Daughter Problem List: (1) Anasarca Plan: In view of poor response to high-dose parenteral diuretic therapy with continued marked fluid retention, some respiratory insufficiency and worsening azotemia will proceed with dialytic support. Unfortunately the patient has a labile blood pressure with hypotension and a low mean arterial pressure occasionally. I do not believe that we will be able to achieve adequate fluid removal with conventional hemodialysis. I will proceed with CRRT as ordered. Review patient's management with critical care, the dialysis nurse and the daughter by the bedside. The daughter was advised of the patient's critical condition with acute renal failure, fluid overload, hypotension. His prognosis is guarded. I also advised her that if the patient's hemodynamic status does not improve I would not recommend continuance of CRRT indefinitely and that we may have to consider comfort measures. It is already noted that the patient has a DO NOT INTUBATE status. I reviewed the hematological consultation and it is noted that a bone marrow has been recommended. Appreciate input. I suspect that the GFR calculated is underestimating severity of the patient's renal clearance and this patient may even have end-stage renal disease. Medications should be adjusted for the patient's estimated GFR if clinically indicated. Avoid agents with significant potential for nephrotoxicity possible including NSAIDs for analgesia, iodine contrast agents. Gadolinium is contraindicated if the GFR is below 30. Total time spent in direct patient care 38 minutes. (2) CKD (chronic kidney disease) stage 3, GFR 30-59 ml/min Plan: May be related to nephrosclerosis of hypertension and aging. Also the patient may be predisposed to development of focal segmental glomerulosclerosis secondary to morbid obesity. (3) CHF exacerbation Plan: Plan of management as above. (4) Pulmonary hypertension Plan: Defer management of patient's pulmonary condition as well as sleep apnea to primary care physician. (5) Cardiomyopathy (6) HTN (hypertension) Plan: History of No Rowan MD Jul 31, 2016 13:42
[2016-07-31] MEDS ORDERED: POTASSIUM CHLOR 10 MEQ PREMIX 100 ML IV PRN (13:45)
[2016-07-31] MEDS ORDERED: CALCIUM GLUCONATE INJ 1 GM in SODIUM CHLORIDE 0.9% INJ 100 ML IV PRN (14:00)
[2016-07-31] MEDS ORDERED: KCL/AQUEOUS SOLN Dialysate additive PRN (15:00)
[2016-07-31 15:19] LABS: AUTOMATED NEUTROPHIL # 5.6 TH/MM3 (1.8-7.7); BASOPHIL # 0.1 TH/MM3 (0-0.2); EOSINOPHIL # 0.2 TH/MM3 (0-0.4); EOSINOPHIL % 2.2 % (0.0-4.0); HEMATOCRIT 37.1 % (39.0-51.0); LYMPH % 9.6 % (9.0-44.0); LYMPHOCYTE # 0.7 TH/MM3 (1.0-4.8); MEAN CELL VOLUME 88.8 FL (80.0-100.0); MEAN CORPUSCULAR HEMOGLOBIN 26.6 PG (27.0-34.0); MONO % 10.8 % (0.0-8.0); NEUT % 76.4 % (16.0-70.0); PLATELET COUNT 86 TH/MM3 (150-450); RED BLOOD COUNT 4.17 MIL/MM3 (4.50-5.90); RED CELL DISTRIBUTION WIDTH 18.3 % (11.6-17.2); WHITE BLOOD COUNT 7.3 TH/MM3 (4.0-11.0)
[2016-07-31 15:20] LABS: HEMO FLAGS AUTO DIFF
[2016-07-31 15:45] LABS: BICARBONATE 28.6 MEQ/L (21.0-32.0); POTASSIUM 3.6 MEQ/L (3.5-5.1)
[2016-07-31 15:46] LABS: OVALOCYTES 1+ (NORMAL); PLATELET ESTIMATE SMEAR LOW (NORMAL); PLATELET MORPHOLOGY NORMAL (NORMAL); SCAN/DIFF AUTO DIFF CONFIRMED
[2016-07-31] MEDS: RESP: ALBUTEROL 2.5 MG/IPRATROPIUM 0.5 MG NEB (SCH) NEB ×3 (15:55→23:39)
[2016-07-31] MEDS ORDERED: WARFARIN SOD 5 MG TAB PO SCH (16:00)
[2016-08-01] VITALS (20 sets, daily range): BP systolic 83–144; BP diastolic 48–83; PULSE 101–126; RESP 20–28; TEMP 97.4–98.3; O2SAT 92–98
[2016-08-01 00:38] LABS: BICARBONATE 27.3 MEQ/L (21.0-32.0); POTASSIUM 3.6 MEQ/L (3.5-5.1)
[2016-08-01] MEDS: INSULIN NovoLIN REGULAR SUPPLEMENTAL SCALE SQ SCH ×4 (01:30→20:42)
[2016-08-01] MEDS: RESP: ALBUTEROL 2.5 MG/IPRATROPIUM 0.5 MG NEB (SCH) NEB ×6 (03:37→23:08)
[2016-08-01] MEDS: LEVOTHYROXINE SODIUM 25 MCG TAB PO SCH (05:05)
[2016-08-01 07:37] LABS: INTERNATIONAL NORMALIZED RATIO 2.4 RATIO; PROTHROMBIN TIME - PATIENT 27.9 SEC (9.8-11.6)
[2016-08-01 07:40] LABS: BASOPHIL % 0.5 % (0.0-2.0); EOSINOPHIL # 0.2 TH/MM3 (0-0.4); EOSINOPHIL % 3.4 % (0.0-4.0); HEMATOCRIT 34.3 % (39.0-51.0); LYMPH % 14.7 % (9.0-44.0); LYMPHOCYTE # 0.8 TH/MM3 (1.0-4.8); MEAN CELL VOLUME 87.3 FL (80.0-100.0); MEAN CORPUSCULAR HEMOGLOBIN 26.3 PG (27.0-34.0); MEAN CORPUSCULAR HGB CONC 30.1 % (32.0-36.0); MONO % 12.8 % (0.0-8.0); NEUT % 68.6 % (16.0-70.0); PLATELET COUNT 69 TH/MM3 (150-450); RED BLOOD COUNT 3.93 MIL/MM3 (4.50-5.90); RED CELL DISTRIBUTION WIDTH 17.7 % (11.6-17.2); WHITE BLOOD COUNT 5.8 TH/MM3 (4.0-11.0)
[2016-08-01 07:49] LABS: HEMO FLAGS AUTO DIFF
[2016-08-01 07:53] LABS: BICARBONATE 27.2 MEQ/L (21.0-32.0); MAGNESIUM 2.1 MG/DL (1.5-2.5); POTASSIUM 3.3 MEQ/L (3.5-5.1)
[2016-08-01 07:54] LABS: CALCIUM-PROTEIN CORRECTED 9.1 MG/DL (8.5-10.1)
[2016-08-01] MEDS: SODIUM CHLORIDE 0.9% FLUSH 5 ML FLUSH IV FLUSH SCH ×2 (08:01→20:43)
[2016-08-01] MEDS: FLUTICASONE PROPIONATE 50 MCG/ACT 16 GM NASAL SPRAY NASAL SCH ×2 (08:01→20:43)
[2016-08-01] MEDS: DOCUSATE SODIUM 100 MG CAP PO SCH ×2 (08:01→20:43)
--- NOTE | 2016-08-01 08:07 | HHI.CCPN ---
Subjective Remarks/Hospital Course I was consulted by Dr. Woo for a patient transfer to the ICU for a bumex infusion. In brief, this is a 65yM with long medical history, including CAD with stents, atrial fibrillation on Coumadin, CHF, HTN, CKD stage III, NINO on BiPAP at night , chronic respiratory failure on home O2, who initially presented with hypoxia, thought to be HCAP, CHF exacerbation, and new acute on chronic kidney injury. I discussed the case with Dr. Woo and nephrology feels that the next step in management of the patient is to transition to a bumex infusion prior to instituting possible renal replacement therapy. Thus, ICU admission is required for continuous bumex infusion. I have briefly evaluated the patient and my pertinent findings are: morbidly obese gentleman lying in bed on BiPAP, fio2 50%, /. somnolent but arousable. Mallampatti class IV, short thyromental distance, large neck circumference. distant breath sounds and muffled cardiac sounds due to morbid obesity, but clear to auscultation and cardiac sounds without overt appreciable murmurs. he is not tachypneic and not in distress. K 3.5, serum bicarb 27. CXR demonstrates dense LLL consolidation. I agree with Dr. Woo that the patient meets ICU criteria for continuous bumex infusion. I agree with the anticipated plan of bumex infusion with intermittent prn BiPAP (home BiPAP use), abx, and oxygen as needed. In my brief review of the medical record, I agree with nephrology that there is no current indication for emergent renal replacement therapy. I did talk with Dr. Woo that given his echo findings of right ventricular dysfunction and severe pulmonary hypertension with NINO, he is likely to have early cor pulmonale, and I would recommend being aggressive with early renal replacement therapy if no improvement with bumex infusion. Per the documentation, the patient is a DNR, and Dr. Woo is re-confirming whether or not he would want to be DNI or intubated. He would be an anticipated difficult mask ventilation and difficult intubation. 07/31 Patient is on partial non rebreather, renal function worse today with Cr: 3.27 from 2.76 patient to start CVVHD per renal. 08/01 Patient was on BIPAP overnight 06/20 with 40% FIO2. More awake and alert today. CVVHD started yesterday however it was clotted off overnight. Objective Vital Signs Date Time Temp Pulse Resp B/P Pulse Ox O2 Delivery O2 Flow Rate FiO2 08/01/16 07:00 Bi-Pap 40 08/01/16 06:00 101 08/01/16 04:00 97.9 23 92/53 92 07/31/16 19:00 12.00 Intake and Output 07/31/16 07/31/16 08/01/16 08:00 16:00 00:00 Intake Total 305 ml 71 ml 260 ml Output Total 100 ml 120 ml 2017 ml Balance 205 ml -49 ml -1757 ml Result Diagram: 07/31/16 1435 07/31/16 2339 Other Results Laboratory Tests Test 07/31/16 07/31/16 08/01/16 14:35 23:39 05:25 White Blood Count 7.3 TH/MM3 Red Blood Count 4.17 MIL/MM3 Hemoglobin 11.1 GM/DL Hematocrit 37.1 % Mean Corpuscular Volume 88.8 FL Mean Corpuscular Hemoglobin 26.6 PG Mean Corpuscular Hemoglobin 29.9 % Concent Red Cell Distribution Width 18.3 % Platelet Count 86 TH/MM3 Mean Platelet Volume 8.8 FL Neutrophils (%) (Auto) 76.4 % Lymphocytes (%) (Auto) 9.6 % Monocytes (%) (Auto) 10.8 % Eosinophils (%) (Auto) 2.2 % Basophils (%) (Auto) 1.0 % Neutrophils # (Auto) 5.6 TH/MM3 Lymphocytes # (Auto) 0.7 TH/MM3 Monocytes # (Auto) 0.8 TH/MM3 Eosinophils # (Auto) 0.2 TH/MM3 Basophils # (Auto) 0.1 TH/MM3 CBC Comment AUTO DIFF Differential Comment AUTO DIFF CONFIRMED Platelet Estimate LOW Platelet Morphology Comment NORMAL Ovalocytes 1+ Sodium Level 139 MEQ/L 139 MEQ/L Potassium Level 3.6 MEQ/L 3.6 MEQ/L Chloride Level 102 MEQ/L 104 MEQ/L Carbon Dioxide Level 28.6 MEQ/L 27.3 MEQ/L Anion Gap 8 MEQ/L 8 MEQ/L Blood Urea Nitrogen 44 MG/DL 43 MG/DL Creatinine 3.10 MG/DL 2.77 MG/DL Estimat Glomerular Filtration 20 ML/MIN 23 ML/MIN Rate Random Glucose 130 MG/DL 116 MG/DL Calcium Level 8.6 MG/DL 8.6 MG/DL Prothrombin Time 27.9 SEC Prothromb Time International 2.4 RATIO Ratio Imaging Last Impressions Chest X-Ray 07/31/16 0000 Signed Impressions: Service Date/Time: Sunday, July 31, 2016 11:29 - CONCLUSION: Vascath in good position. No evidence of a pneumothorax. Ruiz Paniagua MD Renal Ultrasound 07/26/16 0000 Signed Impressions: Service Date/Time: Tuesday, July 26, 2016 11:33 - CONCLUSION: Limited evaluation of the kidneys secondary to patient body habitus and nonvisualization of the left kidney. The right kidney cortex appears mildly thinned and increased in echotexture which may reflect chronic medical renal disease. No evidence of hydronephrosis. Farzaneh White MD Chest CT 07/21/16 1428 Signed Impressions: Service Date/Time: July 15:15 - CONCLUSION: 1. Dense consolidation of the left lower lobe. 2. Small bilateral effusions. 3. 3.0 x 1.9 cm pleural-based nodule on the left. This is indeterminate by CT imaging. No hilar or mediastinal adenopathy is seen. 4. There is fluid in the left upper quadrant surrounding the spleen. The spleen appears mildly enlarged. 5. Advanced cardiomegaly. Girma Metzger MD Objective Remarks GENERAL: Patient is 65 yo critically ill on BIPAP lying in bed in mild resp distress SKIN: Warm and dry. HEAD: Normocephalic. EYES: No scleral icterus. No injection or drainage. NECK: Supple, trachea midline. No JVD or lymphadenopathy. CARDIOVASCULAR: Tachycardic without murmurs, gallops, or rubs. RESPIRATORY: Breath sounds equal bilaterally. No accessory muscle use. GASTROINTESTINAL: Abdomen soft, non-tender, nondistended. MUSCULOSKELETAL: No cyanosis, + edema. Neuro: Awake. Procedures None. A/P Assessment and Plan 1Resp Insuff 2) Acute on chronic renal failure 3) CHF/Cardiomyopathy 4)Mod-severe pulm HTN with PAP 75mmHg 5)CAD 6)Afib on Coumadin 7)Hx HTN 8)Anemia, thrombocytopenia 9)Hypothyroidism 10)Morbid obesity, NINO Plan Neuro: Awake, avoid sedatives Pulm: Wean down oxygen as jonel keep sat >92% Bronchodilators, NIPPV PRN during day and nocturnally qhs for NINO CV:Monitor HR and BP keep MAP>65mmHg. Echo showed EF 45-50%, PAP 75mmHg : Monitor renal function, I/O's, avoid nephrotoxins Renal Dr.. Dunn- on CVVHD per renal. Follow up on BMP today, UO: 570ml in 24 hrs GI: On PO diet ID: Continue with Levaquin, monitor for signs of infections ( Fever, WBC) Check UA with cx if indicated Heme: Monitor CBC Endo: SSI if needed for glycemic control GI prophylaxis DVT prophylaxis - Coumadin with INR 2.4 today, Coumadin on hold for thrombocytopenia. Lines: Right IJ vascath placed 07/31, peripheral IV's Palliative care to asses goals of care level 3 Mary Anne Gant MD Aug 01, 2016 08:07
[2016-08-01 09:10] LABS: BANDS 1 % (0-6); EOSINOPHILS 2 % (0-4); MYELOCYTES 1 % (0-0); NEUTROPHIL # MANUAL DIFF 4.1 TH/MM3 (1.8-7.7); PLATELET ESTIMATE SMEAR LOW (NORMAL); PLATELET MORPHOLOGY NORMAL (NORMAL); POLYS (SEG NEUTROPHILS) 69 % (16-70); SCAN/DIFF FINAL DIFF MANUAL; WBC DIFF SAMPLE 100
[2016-08-01 09:11] LABS: OVALOCYTES 1+ (NORMAL)
[2016-08-01] MEDS: ACETAMINOPHEN/HYDROcodone 325 MG/5 MG TAB PO PRN ×3 (10:22→23:28)
--- NOTE | 2016-08-01 10:22 | HHI.NPPN ---
Subjective History of Present Illness This patient is a 65-year-old male who gives a history of having acute renal insufficiency while admitted to [facility] last month. According to patient he was told that he had pneumonia and acute renal insufficiency. He received IV fluids according to the patient he developed edema which worsened post discharge. Initially the patient indicated to me that dialysis was not performed however I discussed his history with his daughter and she indicated that he was on dialysis temporarily in [place] and it was subsequently discontinued secondary to improved kidney function. Patient has no recollection of being told that he had a kidney condition prior to that admission. Patient indicates edema has worsened in the last week involving his scrotum. Denies using NSAIDs as an outpatient. No history of collagen vascular disease, nephrolithiasis, viral hepatitis. He also informed me that prior to his admission I can Donn he was ambulatory but subsequently was discharged to rehabilitation. Interval History Patient indicated that he was less short of breath today. Off BiPAP. Review of Systems Respiratory Lungs: SOB Cardiovascular Cardiac: Edema Objective Data Data 07/31/16 08/01/16 19:00 07:00 Intake Total 71 ml 630 ml Output Total 120 ml 2292 ml Balance -49 ml -1662 ml Intake Oral 100 ml IV Total 71 ml Tube Feeding 410 ml Tube Irrigant 120 ml Output Urine Total 120 ml 450 ml Hemodialysis 1842 ml # Bowel Movements 1 Vital Signs Date Time Temp Pulse Resp B/P Pulse Ox O2 Delivery O2 Flow Rate FiO2 08/01/16 08:46 92 Partial Rebreather 12.00 08/01/16 08:00 102 08/01/16 08:00 97.7 102 28 91/53 94 08/01/16 07:00 Bi-Pap 40 08/01/16 06:00 101 08/01/16 04:00 108 08/01/16 04:00 97.9 108 23 92/53 92 08/01/16 03:50 94 50 08/01/16 02:00 104 08/01/16 00:48 93 40 08/01/16 00:00 97.8 126 25 144/77 92 08/01/16 00:00 126 07/31/16 22:00 133 07/31/16 21:41 94 40 07/31/16 20:07 99 40 07/31/16 20:00 110 07/31/16 20:00 97.6 110 18 99/59 95 07/31/16 19:00 90 Bi-Pap 12.00 40 07/31/16 18:00 114 07/31/16 16:00 98.5 07/31/16 16:00 113 07/31/16 15:57 98 50 07/31/16 14:00 114 07/31/16 13:46 95 50 07/31/16 12:54 93 Partial Non-Rebreather 12.00 07/31/16 12:00 97.6 118 22 97/55 95 07/31/16 12:00 118 -: 08/01/16 0525 08/01/16 0525 Tubes & Lines: Vas-Cath Physical Exam General Appearance: No Acute Distress (mild respiratory distress.) Pulmonary Resp Exam: Breath Sounds Equal, Diminished Breath Sounds Cardiology CV Exam: Regular, Normal Sinus Rhythm Gastrointestinal/Abdomen GI Exam: Distended Integumentary Skin Exam: Warm Extremeties Extremities Exam: Pitting Edema (3+ edema of extremities, edema scrotum. Edema dependent torso.), Dependent Edema Neurologic Neuro Exam: Alert, Awake, Oriented Psychiatric Psych Exam: Appropriate Responses Assessment/Plan Discussed Condition With: Patient, Daughter Problem List: (1) Anasarca Plan: Patient has already clotted off 2 dialyzes. Apparent heparin allergy. I will order Argatroban to try and prevent clotting off of the CRRT. Primary may want to hold Coumadin while patient is receiving this. Defer to primary in regard this.. I have ordered repeat LFTs today. Advised RN that the protocol may have to be adjusted depending upon AST, ALT results. Patient is tolerating fluid removal today. We'll increase the ultrafiltration rate to 250 ML per hour and continue as tolerated. Patient is still critically ill with marked fluid overload and hypotension. Prognosis guarded. I reviewed the hematological consultation and it is noted that a bone marrow has been recommended. Appreciate input. I suspect that the GFR calculated is underestimating severity of the patient's renal clearance and this patient may even have end-stage renal disease. Medications should be adjusted for the patient's estimated GFR if clinically indicated. Avoid agents with significant potential for nephrotoxicity possible including NSAIDs for analgesia, iodine contrast agents. Gadolinium is contraindicated if the GFR is below 30. Total time spent in direct patient care 38 minutes. (2) CKD (chronic kidney disease) stage 3, GFR 30-59 ml/min Plan: May be related to nephrosclerosis of hypertension and aging. Also the patient may be predisposed to development of focal segmental glomerulosclerosis secondary to morbid obesity. (3) CHF exacerbation Plan: Plan of management as above. (4) Pulmonary hypertension Plan: Defer management of patient's pulmonary condition as well as sleep apnea to primary care physician. (5) Cardiomyopathy (6) HTN (hypertension) Plan: History of No Rowan MD Aug 01, 2016 10:22 No Rowan MD Aug 01, 2016 10:22
[2016-08-01 11:00] LABS: ALT (GPT) 39 U/L (12-78); AST (GOT) 37 U/L (15-37)
[2016-08-01] MEDS ORDERED: [UNRECOGNIZED DRUG - OTHER] IV SCH (11:15)
[2016-08-01] MEDS ORDERED: ARGATROBAN IV SCH (11:15)
[2016-08-01] MEDS ORDERED: SODIUM CHLORIDE IV SCH (11:15)
[2016-08-01 11:26] LABS: BACTERIA, URINE MANY /hpf; BLOOD, URINE MOD (NEG); CALCIUM OXALATE CRYSTALS,URINE FEW /hpf; COMMENT (UR) CULTURE INDICATED; CULTURE IF INDICATED CULTURE INDICATED; GLUCOSE,URINE NEG (NEG); KETONE, URINE NEG (NEG); MUCUS URINE MANY /lpf (OCC); NITRITE,URINE NEG (NEG); PH, URINE 5.5 (5.0-8.5); SQUAMOUS EPITHELIAL CELL URINE 19 /hpf (0-5); TRANSITIONAL EPI CELLS, URINE 27 /hpf
[2016-08-01 11:29] LABS: URINE COLOR STRAW (YELLW/STRAW)
[2016-08-01] MEDS: LEVOFLOXACIN 750 MG TAB PO SCH (11:54)
[2016-08-01 12:11] LABS: APTT (PATIENT) 32.9 SEC (24.3-30.1)
[2016-08-01 14:52] LABS: APTT (PATIENT) 98.9 SEC (24.3-30.1)
--- NOTE | 2016-08-01 15:41 | PD.CONS ---
Consult Service Palliative Care Consult Requested By Dr. Gant Primary Care Physician Non-Staff Reason for Consultation a. To assist with evaluation and management of symptoms including: dyspnea, malnutrition b. To assist medical decision maker(s) with: better understanding of current medical conditions; weighing benefits/burdens of medical treatment options; making medical treatment decisions. (Maria Teresa Galindo) HPI History of Present Illness 64-year-old man presented to the ED 07/21/16, for evaluation of worsening dyspnea , decreased O2 sats and weight gain. Sounds reported above 95% but he is been 9095 percent over the prior 2 days. Patient apparently had been recently admitted at [facility] for similar complaints (per patient). He apparently requested to go to [facility] instead of the [facility] facility at time of presentation. He denied other symptoms of chest pain, lightheadedness, dizziness, numbness or tingling, abdominal pain, nausea vomiting. He has known history of CHF, hypertension, atrial fib on Coumadin, CTD, CAD, MT, prior stroke , morbid obesity. * ED course: Her to be tachycardic, on BiPAP O2 sats improved 100%. CBC indicative of mild anemia H&H, platelets 69. Consistent with prior records from June. CMP notable for renal insufficiency creatinine 1.5, prior creatinine 4.25. Troponin 0.05. BNP 465. CXR= lower lobe opacity. CT chest = left lower lobe consolidation with bilateral pleural effusions. Probable hospital-acquired pneumonia, started on Zosyn, vancomycin, Levaquin. Did for further evaluation and management. Per ED notes Patient stated to the ED physician he was a DNR he did not wish to have CPR but would allow other medical intervention short of CPR. * 2-D echo 07/24= EF 4550 percent, cannot exclude regional wall motion abnormalities. Mild aortic regurg. Mildly calcified mitral valve, mildly thickened leaflets. Left atrium mildly dilated. Right ventricle dilated systolic function reduced. Atrium mildly dilated, mild tricuspid regurg. Pulmonary systolic pressure moderately to severely increased. * Nephrology consulted for worsening renal insufficiency, worsening edema especially involving the scrotum. Patient apparently follows outpatient with nephrology. Patient also reportedly required dialysis during a prior admission though did not need it at time of discharge. Nephrology indicates anasarca likely related to cardiac decompensation with component of biventricular failure however CKD also could be contributing. Screen for myeloma in the setting of renal insufficiency. Continue supportive treatments avoiding nephrotoxic agents. Renal ultrasound 07/26=Limited evaluation of the kidneys secondary to patient body habitus and nonvisualization of the left kidney. The right kidney cortex appears mildly thinned and increased in echotexture which may reflect chronic medical renal disease. No evidence of hydronephrosis. * Heme oncology consulted/Dr. Sears notes patient with abnormal free Lambda light chain ratio, ratio was 9 normal ratio about 1.6. May have early myeloma. Should have bone marrow biopsy. * 07/30 patient requiring Bumex infusion for worsening renal status, concern he may require renal replacement therapy. Initiated on Bumex drip transferred to ICU. Critical care also consulted. Concern that findings of RV dysfunction severe pulmonary hypertension as well as NINO concern for early cor pulmonale. May require renal replacement therapy. Later requiring nonrebreather O2, improved on partial nonrebreather. Was also reconfirmed with the patient and patient's daughter by medical attending DNR status. * 07/31 still on a nonrebreather renal functioning worsening creatinine 3.27. Patient to begin CVVHD * 08/01on BiPAP overnight more awake and alert. Started on CVVHD 07/31 however clotted off overnight so was discontinued. Palate of care consulted to assist with clarification of of goals of treatment. Met with patient in room for introduction to palliative care. Able to speak, though at times limited by dyspnea, on partial NRB mask. Reported daughter expected to arrive later this evening I will plan to follow-up with her tomorrow. Patient is alert, mostly oriented though forgetful to date, day of the week etc. Some limited insight to hospital course. Also seems to have reasonable recent insight to recent hospitalizations. He is very clear in terms of his daughter is designated POA, he indicates he would also want her to be his medical decision maker, completed designation of healthcare surrogate asses daughter Gail today, nursing witnessed. Meeting at bedside w pt - brief review of conditions, treatments in place and general prognosis. He affirms DNR status, though wishes to talk more RE equipment operator intermodal yard prognosis with his dtr. He describes recent decline , more so since in rehab but tells me even when living at home prior to that he "wasnt doing great ". Function/Cognitive Trajectory Most recently patient resided in a rehabilitation facility, for about the past 4 -5 months, prior to that lived at home. Indicated he did still need some help at home his daughter Gail assisted with grocery shopping etc. He was still ambulatory with a walker though limited distances. He reports last time he was ambulatory was most recent June admission. (Maria Teresa Galindo) Past Family Social History Coded Allergies: Heparin (Verified Allergy, Unknown, 07/21/16) *MDRO Multi-Drug Resistant Organism (Verified Adverse Reaction, Unknown, MRSA, 08/03/16) MRSA PCR Screen POSITIVE - 07/31/2016 Uncoded Allergies: CEFEPIME (Allergy, Unknown, 07/21/16) UNKNOWN Past Medical History CAD with stents CHF HTN CKD stage III NINO on BiPAP at night chronic respiratory failure on home O2 Atrial fibrillation on coumadin Hypothyroidism Past Surgical History Cardiac catheterization with stent placement Colonoscopy 2 years ago Reported Medications Fleet Enema Rectal (Sodium Phosphates Rectal) 7-19 Gm/118 Ml Enem 118 Ml RECTAL HS PRN Dulcolax Supp (Bisacodyl) 10 Mg Supp 10 Mg RECTAL DIRECTED PRN Milk of Magnesia Liq (Magnesium Hydroxide) 400 Mg/5 Ml Susp 30 Ml PO DIRECTED PRN Zostrix Arthritis Pain Relief Topical (Capsaicin) 0.025% Cream 1 Applic TOPICAL EACH SHIFT Xanax (Alprazolam) 0.5 Mg Tab 0.5 Mg PO BID Warfarin 4 Mg Tab 4 Mg PO HS Torsemide 20 Mg Tab 20 Mg PO DAILY Oxycodone (Oxycodone HCl) 5 Mg Tab 5 Mg PO Q6H PRN Metoprolol Tartrate 25 Mg Tab 12.5 Mg PO BID Levothyroxine (Levothyroxine Sodium) 25 Mcg Tab 25 Mcg PO DAILY Xopenex Neb (Levalbuterol HCl) 1.25 Mg/3 Ml Neb 1.25 Mg NEB TID NEB Tamsulosin (Tamsulosin HCl) 0.4 Mg Cap 0.4 Mg PO DAILY Vibramycin (Doxycycline Hyclate) 100 Mg Cap 100 Mg PO BID Colace (Docusate Sodium) 100 Mg Cap 100 Mg PO BID Dul[address]ax [address] (Bisacodyl) 5 Mg Tabdr 10 Mg PO HS PRN . Current Medications Medications (Trade) Dose Ordered Sig/Olivia Route Start Time Stop Time Status Last Admin (Colace) 100 mg BID PO 07/21/16 21:00 07/31/16 20:26 (Synthroid) 25 mcg DAILY@06 PO 07/22/16 06:00 08/01/16 05:05 (Lopressor) 12.5 mg BID PO 07/21/16 21:00 Hold 07/31/16 09:30 (Pill Splitter) 1 ea UNSCH PRN OTHER 07/21/16 16:30 (NS Flush) 2 ml UNSCH PRN IV FLUSH 07/21/16 16:30 07/21/16 18:37 (NS Flush) 2 ml BID IV FLUSH 07/21/16 21:00 08/01/16 08:01 (Tylenol) 650 mg Q4H PRN PO 07/21/16 16:30 (Zofran Inj) 4 mg Q6H PRN IV 07/21/16 16:30 (Dearborn 5-325 Mg) 1 tab Q4H PRN PO 07/21/16 16:45 08/01/16 10:22 (Imodium) 2 mg Q6H PRN PO 07/27/16 09:15 07/30/16 02:27 Fluticasone Propionate 1 spray 1 spray BID NASAL 07/27/16 09:14 07/30/16 09:40 (Coumadin Consult Pharmacy) 0 ml @ 0 mls/hr UNSCH OTHER 07/31/16 11:45 (Coumadin) 5 mg DAILY@16 PO 07/31/16 16:00 Hold 07/31/16 16:31 (D50w (Vial) Inj) 25 ml UNSCH PRN IV PUSH 07/31/16 13:30 (Glucagon Inj) 1 mg UNSCH PRN OTHER 07/31/16 13:30 Insulin Human Regular 1 1 Q6H SQ 07/31/16 13:30 08/01/16 08:01 Potassium Chloride 100 ml @ 100 mls/hr BOLUS PRN IV 07/31/16 13:45 Sodium Chloride 1,000 ml @ 0 mls/hr UNSCH PRN OTHER 07/31/16 14:45 (Argatroban-0.9% NS Inj) 250 ml @ 0 mls/hr TITRATE IV 08/01/16 11:15 08/01/16 11:54 Family History Mother with heart disease, Father with unknown medical problems, Substance Use Tobacco: Former smoker, 1.5 PPD 20 years, quit 20 years ago Alcohol: Denies Prescription med abuse: None Illicits: None . Psychosocial History Disabled for the past several years. Supported by 2 adult children. Legally . Has been in rehabilitation the past 4-5 months. Prior to that lived at home. Retired/disabled around 2009. 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 . Spiritual/Cultural Factors Worship, has had pastoral support from provider known to him, declined histology tech support. (Maria Teresa Galindo) Health Care Surrogate: Copy in medical record (completed today 08/01) Durable Power of Liquid Waste Treatment Plant Operator: Copy in medical record (does not include medical decision-making) Date completed: 08/01/16 Health Care Surrogate(s): Daughter Gail Schneider Ethical and Legal Issues Patient is able to participate in decision-making. Designates daughter Gail Schneider as healthcare surrogate. (Maria Teresa Galindo) Physical Exam Vital Signs Date Time Temp Pulse Resp B/P Pulse Ox O2 Delivery O2 Flow Rate FiO2 08/01/16 14:00 112 08/01/16 12:15 102/58 08/01/16 12:00 107 08/01/16 12:00 98.3 107 25 83/55 95 08/01/16 10:00 118 08/01/16 08:46 92 Partial Rebreather 12.00 08/01/16 08:00 102 08/01/16 08:00 97.7 102 28 91/53 94 08/01/16 07:00 Bi-Pap 40 08/01/16 06:00 101 08/01/16 04:00 108 08/01/16 04:00 97.9 108 23 92/53 92 08/01/16 03:50 94 50 08/01/16 02:00 104 08/01/16 00:48 93 40 08/01/16 00:00 97.8 126 25 144/77 92 08/01/16 00:00 126 07/31/16 22:00 133 07/31/16 21:41 94 40 07/31/16 20:07 99 40 07/31/16 20:00 110 07/31/16 20:00 97.6 110 18 99/59 95 07/31/16 19:00 90 Bi-Pap 12.00 40 07/31/16 18:00 114 07/31/16 16:00 98.5 07/31/16 16:00 113 07/31/16 15:57 98 50 07/31/16 08/01/16 19:00 07:00 Intake Total 71 ml 630 ml Output Total 120 ml 2292 ml Balance -49 ml -1662 ml Intake Oral 100 ml IV Total 71 ml Tube Feeding 410 ml Tube Irrigant 120 ml Output Urine Total 120 ml 450 ml Hemodialysis 1842 ml # Bowel Movements 1 Exam CONSTITUTIONAL/GENERAL: This is a morbidly obese pt, chronically ill appearing, on NRB in ICU TUBES/LINES/DRAINS: Dialysis catheter right IJ, PIV BUE, Hale catheter, NG tube SKIN: No jaundice, rashes. Venous stasis wounds to BLE. Chronic vascular changes BUE, multiple areas of ecchymosis upper and lower extremities. Both earlobes dusky, purple in coloration. Dressing to right doss clean and dry. Skin warm. HEAD: Atraumatic. Normocephalic. EYES: Pupils equal and round and reactive. Extraocular motions intact. No scleral icterus. No injection or drainage. Fundi not examined. ENT: Hearing grossly normal. Nose without bleeding or purulent drainage. Mucous membranes dry. NECK: Trachea midline. Supple, nontender. Thick, short neck. CARDIOVASCULAR: Regular rate and rhythm, atrial fib visible on bedside monitor.3 + generalized edema, pitting to lower extremities. Pedal pulses faintly palpable RESPIRATORY/CHEST: Symmetric, mildly labored respirations on 100% nonrebreather. Decreased air movement throughout more so to the left. Coarse scattered rhonchi. GASTROINTESTINAL: Abdomen soft, obese, non-tender.No hepato-splenomegaly, or palpable masses. No guarding. Bowel sounds present. GENITOURINARY: Without palpable bladder distension. Hale catheter in place. MUSCULOSKELETAL: Extremities with 3+ edema. No joint tenderness or effusion noted. LYMPHATICS: No palpable cervical or supraclavicular adenopathy. NEUROLOGICAL: Awake and alert- mostly oriented forgetful to date and time. some limited insight to hospital course. Motor and sensory grossly within normal limits. Follows commands. Cognitively sharp. Moves all 4 extremities generalized weakness. PSYCHIATRIC: No obvious anxiety/depression. no apparent hallucinations or other psychotic thought process. (Maria Teresa Galindo) Diagnostic Tests Laboratory Laboratory Tests Test 07/30/16 07/30/16 07/30/16 07/30/16 06:39 10:35 12:00 12:30 Immunoglobulin G Total 907 MG/DL (670-1650) Immunoglobulin A 180 MG/DL (98-543) Immunoglobulin M 55 MG/DL (39-238) Immunoglobulin [place]/Lambda 1.95 Ratio (1.57-3.93) [place]ville Light Chain Analysis 224 MG/DL (170-370) Lambda Light Chain Analysis 115 MG/DL (90-210) Sodium Level 138 MEQ/L (136-145) Potassium Level 3.5 MEQ/L (3.5-5.1) Chloride Level 100 MEQ/L (98-107) Carbon Dioxide Level 27.7 MEQ/L (21.0-32.0) Anion Gap 10 MEQ/L (5-15) Blood Urea Nitrogen 42 MG/DL (7-18) Creatinine 2.76 MG/DL (0.60-1.30) Estimat Glomerular Filtration 23 ML/MIN (>89) Rate Random Glucose 118 MG/DL (74-106) Calcium Level 8.6 MG/DL (8.5-10.1) Total Bilirubin 0.6 MG/DL (0.2-1.0) Direct Bilirubin 0.2 MG/DL (0.0-0.2) Indirect Bilirubin 0.4 MG/DL (0.0-0.8) Aspartate Amino Transf 40 U/L (15-37) (AST/SGOT) Alanine Aminotransferase 32 U/L (12-78) (ALT/SGPT) Alkaline Phosphatase 135 U/L (45-117) Total Protein 6.7 GM/DL (6.4-8.2) Albumin 3.0 GM/DL (3.4-5.0) Blood Gas Puncture Site LT RADIAL Blood Gas Patient Temperature 98.6 Blood Gas HCO3 25 mmol/L (22-26) Blood Gas Base Excess -1.4 mmol/L (-2-2) Blood Gas Oxygen Saturation 97 % (90-100) Arterial Blood pH 7.24 (7.380-7.420) Arterial Blood Partial 60 mmHg (38-42) Pressure CO2 Arterial Blood Partial 187 mmHg Pressure O2 (61-120) Arterial Blood Oxygen Content 16.1 Vol % (12.0-20.0) Arterial Blood 1.6 % (0-4) Carboxyhemoglobin Arterial Blood Methemoglobin 0.8 % (0-2) Blood Gas Hemoglobin 11.5 G/DL (12.0-16.0) Oxygen Delivery Device Partial Rebreather Blood Gas Liter Flow 15 L/M Prothrombin Time 24.4 SEC (9.8-11.6) Prothromb Time International 2.1 RATIO Ratio Activated Partial 32.9 SEC Thromboplast Time (24.3-30.1) Test 07/30/16 07/31/16 07/31/16 07/31/16 15:42 06:00 14:35 23:39 Lactic Acid Level 1.7 mmol/L (0.4-2.0) Prothrombin Time 21.7 SEC (9.8-11.6) Prothromb Time International 1.9 RATIO Ratio Sodium Level 138 MEQ/L 139 MEQ/L 139 MEQ/L (136-145) (136-145) (136-145) Potassium Level 4.0 MEQ/L 3.6 MEQ/L 3.6 MEQ/L (3.5-5.1) (3.5-5.1) (3.5-5.1) Chloride Level 99 MEQ/L 102 MEQ/L 104 MEQ/L (98-107) (98-107) (98-107) Carbon Dioxide Level 29.9 MEQ/L 28.6 MEQ/L 27.3 MEQ/L (21.0-32.0) (21.0-32.0) (21.0-32.0) Anion Gap 9 MEQ/L (5-15) 8 MEQ/L (5-15) 8 MEQ/L (5-15) Blood Urea Nitrogen 44 MG/DL (7-18) 44 MG/DL (7-18) 43 MG/DL (7-18) Creatinine 3.27 MG/DL 3.10 MG/DL 2.77 MG/DL (0.60-1.30) (0.60-1.30) (0.60-1.30) Estimat Glomerular Filtration 19 ML/MIN (>89) 20 ML/MIN (>89) 23 ML/MIN (>89) Rate Random Glucose 156 MG/DL 130 MG/DL 116 MG/DL (74-106) (74-106) (74-106) Calcium Level 8.8 MG/DL 8.6 MG/DL 8.6 MG/DL (8.5-10.1) (8.5-10.1) (8.5-10.1) White Blood Count 7.3 TH/MM3 (4.0-11.0) Red Blood Count 4.17 MIL/MM3 (4.50-5.90) Hemoglobin 11.1 GM/DL (13.0-17.0) Hematocrit 37.1 % (39.0-51.0) Mean Corpuscular Volume 88.8 FL (80.0-100.0) Mean Corpuscular Hemoglobin 26.6 PG (27.0-34.0) Mean Corpuscular Hemoglobin 29.9 % Concent (32.0-36.0) Red Cell Distribution Width 18.3 % (11.6-17.2) Platelet Count 86 TH/MM3 (150-450) Mean Platelet Volume 8.8 FL (7.0-11.0) Neutrophils (%) (Auto) 76.4 % (16.0-70.0) Lymphocytes (%) (Auto) 9.6 % (9.0-44.0) Monocytes (%) (Auto) 10.8 % (0.0-8.0) Eosinophils (%) (Auto) 2.2 % (0.0-4.0) Basophils (%) (Auto) 1.0 % (0.0-2.0) Neutrophils # (Auto) 5.6 TH/MM3 (1.8-7.7) Lymphocytes # (Auto) 0.7 TH/MM3 (1.0-4.8) Monocytes # (Auto) 0.8 TH/MM3 (0-0.9) Eosinophils # (Auto) 0.2 TH/MM3 (0-0.4) Basophils # (Auto) 0.1 TH/MM3 (0-0.2) CBC Comment AUTO DIFF Differential Comment AUTO DIFF CONFIRMED Platelet Estimate LOW (NORMAL) Platelet Morphology Comment NORMAL (NORMAL) Ovalocytes 1+ (NORMAL) Test 08/01/16 08/01/16 08/01/16 08/01/16 05:25 09:45 11:30 14:00 White Blood Count 5.8 TH/MM3 (4.0-11.0) Red Blood Count 3.93 MIL/MM3 (4.50-5.90) Hemoglobin 10.3 GM/DL (13.0-17.0) Hematocrit 34.3 % (39.0-51.0) Mean Corpuscular Volume 87.3 FL (80.0-100.0) Mean Corpuscular Hemoglobin 26.3 PG (27.0-34.0) Mean Corpuscular Hemoglobin 30.1 % Concent (32.0-36.0) Red Cell Distribution Width 17.7 % (11.6-17.2) Platelet Count 69 TH/MM3 (150-450) Mean Platelet Volume 8.8 FL (7.0-11.0) Neutrophils (%) (Auto) 68.6 % (16.0-70.0) Lymphocytes (%) (Auto) 14.7 % (9.0-44.0) Monocytes (%) (Auto) 12.8 % (0.0-8.0) Eosinophils (%) (Auto) 3.4 % (0.0-4.0) Basophils (%) (Auto) 0.5 % (0.0-2.0) Neutrophils # (Auto) 4.0 TH/MM3 (1.8-7.7) Lymphocytes # (Auto) 0.8 TH/MM3 (1.0-4.8) Monocytes # (Auto) 0.7 TH/MM3 (0-0.9) Eosinophils # (Auto) 0.2 TH/MM3 (0-0.4) Basophils # (Auto) 0.0 TH/MM3 (0-0.2) CBC Comment AUTO DIFF Differential Total Cells 100 Counted Neutrophils % (Manual) 69 % (16-70) Band Neutrophils % 1 % (0-6) Lymphocytes % 13 % (9-44) Monocytes % 14 % (0-8) Eosinophils % 2 % (0-4) Neutrophils # (Manual) 4.1 TH/MM3 (1.8-7.7) Myelocytes 1 % (0-0) Differential Comment FINAL DIFF MANUAL Platelet Estimate LOW (NORMAL) Platelet Morphology Comment NORMAL (NORMAL) Ovalocytes 1+ (NORMAL) Prothrombin Time 27.9 SEC (9.8-11.6) Prothromb Time International 2.4 RATIO Ratio Sodium Level 140 MEQ/L (136-145) Potassium Level 3.3 MEQ/L (3.5-5.1) Chloride Level 103 MEQ/L (98-107) Carbon Dioxide Level 27.2 MEQ/L (21.0-32.0) Anion Gap 10 MEQ/L (5-15) Blood Urea Nitrogen 42 MG/DL (7-18) Creatinine 2.87 MG/DL (0.60-1.30) Estimat Glomerular Filtration 22 ML/MIN (>89) Rate Random Glucose 100 MG/DL (74-106) Calcium Level 8.5 MG/DL (8.5-10.1) Protein Corrected Calcium 9.1 MG/DL (8.5-10.1) Magnesium Level 2.1 MG/DL (1.5-2.5) Aspartate Amino Transf 37 U/L (15-37) (AST/SGOT) Alanine Aminotransferase 39 U/L (12-78) (ALT/SGPT) Total Protein 6.1 GM/DL (6.4-8.2) Urine Color STRAW (YELLW/STRAW) Urine Turbidity CLOUDY (CLEAR) Urine pH 5.5 (5.0-8.5) Urine Specific [place] 1.012 (1.002-1.035) Urine Protein 100 mg/dL (NEG-TRACE) Urine Glucose (UA) NEG mg/dL (NEG) Urine Ketones NEG mg/dL (NEG) Urine Occult Blood MOD (NEG) Urine Nitrite NEG (NEG) Urine Bilirubin NEG (NEG) Urine Urobilinogen LESS THAN 2.0 MG/DL (LESS THAN 2.0) Urine Leukocyte Esterase LARGE (NEG) Urine RBC /hpf (0-3) Urine WBC /hpf (0-5) Urine WBC Clumps MANY (NONE) Urine Squamous Epithelial 19 /hpf (0-5) Cells Urine Transitional Epithelial 27 /hpf (NONE) Cells Urine Calcium Oxalate Crystals FEW /hpf (NONE) Urine Bacteria MANY /hpf (NONE) Urine Hyaline Casts /lpf (RARE) Urine Mucus MANY /lpf (OCC) Urine Yeast with Hyphae MANY (NONE) Urine Yeast (Budding) MANY (NONE) Microscopic Urinalysis Comment CULTURE INDICATED Activated Partial 32.9 SEC 98.9 SEC Thromboplast Time (24.3-30.1) (24.3-30.1) (Maria Teresa Galindo) Result Diagram: 08/01/1652408/01/16 0525 Microbiology Microbiology Date/Time Procedure Status Source Growth 08/01/16 09:45 Urine Culture Received Urine Clean Catch Pending (Maria Teresa Galindo) Patient/Family Conference Family Conference Location: Bedside Issues Discussed: Brief meeting with pt at bedside (somewhat limited by pt dyspnea, and limited insight) discussion included: * Palliative care role, purpose, approach * Additional medical, psychosocial, and spiritual history * Patients general health, functional status, and cognitive changes in the months leading up to the current hospitalization * Patient/family understanding of the current medical problems * Patient/family understanding of prognosis-very brief review of current conditions and treatments in place--plan to review general prognosis as course evolves with him and his daughter as per his request to include her. She is due to arrive sometime later this evening. * Patients goals of care as best understood from advance directives and/or conversations and/or values * Current medical code status-- very emphatic that he wants DNR status * legal decision makers- currently appears able to participate in decision- making, indicates that his daughter is his POA. Review with him that this document in the chart does not include medical decision-making, he indicates he wants her for that as well. Assisted him to complete healthcare surrogate designation naming his daughter. * Questions answered to the best of my ability * Palliative care contact information provided Minute discussion with patient at bedside, he wishes to include his daughter. She is due to arrive sometime later this evening, I will plan follow-up with her tomorrow. He wishes to include her in decision-making and discussion. (Maria Teresa Galindo) Assessment and Plan Disease Oriented Problem List: (1) Hospital-acquired pneumonia (2) Acute and chronic respiratory failure (3) CHF exacerbation (4) Pulmonary hypertension (5) Anasarca (6) Cardiomyopathy (7) HTN (hypertension) (8) CKD (chronic kidney disease) stage 3, GFR 30-59 ml/min (9) Morbid obesity with BMI of 60.0-69.9, adult Symptom Scale: (1) Dyspnea 0-10 Scale: Unable to quantify (2) Malnutrition 0-10 Scale: Unable to quantify Comment: Risk for during acute hospitalization, related to BiPAP, invasive procedures altering oral intake. Albumin 2.5 initially. Pertinent Non-Medical Issues Psychosocial:Disabled for the past several years. Supported by 2 adult children. Legally . Has been in rehabilitation the past 4-5 months. Prior to that lived at home. Retired/disabled around 2009. 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 Spiritual: Worship Legal: Patient able to participate in decision-making, designated daughter Gail as healthcare surrogate on 08/01/16. Ethical issues impacting care: Important Contacts Zina Schneider [phone] Prognosis This patient was admitted for dyspnea. Has multiple chronic medical conditions. Reported to have multiple recent hospitalizations related to the same issues. Has elected DNR status. May be able to stabilize, treat current conditions however also very high risk for further complications/setbacks in decline which he may not survive if does not desire intubation/resuscitation. . Code Status: No Code Plan * Legal decision maker: Patient able to participate in decision-making, designated daughter Gail as healthcare surrogate on 08/01/16. * Goals: semi aggressive, short of resuscitation for now. Plan to discuss further with pt AND daughter-- she was unavailable at time I was on unit; plan to speak with her tomorrow * CODE STATUS: DNR * SYMPTOMS: --Dyspnea-+ HCAP, req. NRB mask. Ongoing dyspnea x weeks prior to presentation, now req. CVVHD for fluid --Malnutrition- limited PO intake due to O2 requirements, dyspnea, receiving TF via NGT. albumin 2.5 --Pain- generalized "aches" to body, ?r/t bedbound immobile status * Palliative care will continue to follow during hospital course as condition evolves, to assist patient/decision-maker with understanding of medical conditions, weighing benefits/burdens of treatment options, for clarification of goals of treatment. Additionally will assist with any symptoms of palliative concern (Maria Teresa Galindo) Time Spent Total Floor Time (mins): 40 Face to Face Time (mins): 20 >50% Counseling/Coord of Care: Yes (d/w critical care, RN) (Maria Teresa Galindo) Thank you for the opportunity to participate in the care of Mr. Farris. (Maria Teresa Galindo) Attestation To help prompt me to consider important information that might be impacting today's encounter and assessment, information from prior notes written by myself or my colleagues may have been "brought forward" into today's note. My signature on this note, however, is an attestation that I personally performed the exam, history, and/or decision-making noted today, and, unless otherwise indicated, the interactions with patient, family, and staff as well as the review of records all occurred today. I also attest that the listed assessment and stated plan reflect my best clinical judgment today based on the combination of historical information, prior notes, and today's exam/ interactions. When time spent is documented, it refers only to time spent today by the signer, or if indicated, combined time spent today by collaborating physician/nurse practitioner. (Maria Teresa Galindo) Collaborating MD Comments Chart reviewed. Case discussed with palliative care BALL FRINGE MACHINE OPERATOR. 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 . (Hans Casillas MD) Maria Teresa Galindo Aug 01, 2016 15:40 Hans Casillas MD Sep 04, 2016 07:35
[2016-08-01 18:49] LABS: BICARBONATE 26.2 MEQ/L (21.0-32.0); POTASSIUM 3.3 MEQ/L (3.5-5.1)
[2016-08-01 18:53] LABS: CALCIUM-PROTEIN CORRECTED 8.5 MG/DL (8.5-10.1); INDIRECT BILIRUBIN 0.3 MG/DL (0.0-0.8); TOTAL BILIRUBIN ADULT 0.5 MG/DL (0.2-1.0)
[2016-08-01 19:08] LABS: APTT (PATIENT) 99.1 SEC (24.3-30.1)
[2016-08-01] MEDS ORDERED: CHLORHEXIDINE GLUCONATE 2 % 1 PACK (2 CLOTHS)(extra cloths) TOP PRN (20:45)
[2016-08-01 21:02] LABS: MEAN CORPUSCULAR HGB CONC 29.9 % (32.0-36.0)
[2016-08-01 23:31] LABS: APTT (PATIENT) 95.8 SEC (24.3-30.1)
[2016-08-02] VITALS (19 sets, daily range): BP systolic 96–135; BP diastolic 62–89; PULSE 101–129; RESP 20–31; TEMP 96.9–98.2; O2SAT 91–96
[2016-08-02] MEDS: INSULIN NovoLIN REGULAR SUPPLEMENTAL SCALE SQ SCH ×4 (01:17→19:30)
[2016-08-02] MEDS: RESP: ALBUTEROL 2.5 MG/IPRATROPIUM 0.5 MG NEB (SCH) NEB ×6 (02:30→23:10)
[2016-08-02 03:23] LABS: APTT (PATIENT) 86.7 SEC (24.3-30.1)
[2016-08-02] MEDS: CHLORHEXIDINE GLUCONATE 2 % 1 PACK (2 CLOTHS)(taper/protocol) TOP SCH (04:03)
[2016-08-02] MEDS ORDERED: [UNRECOGNIZED DRUG - OTHER] IV SCH (04:30)
[2016-08-02] MEDS ORDERED: ARGATROBAN IV SCH (04:30)
[2016-08-02] MEDS ORDERED: SODIUM CHLORIDE IV SCH (04:30)
[2016-08-02] MEDS: LEVOTHYROXINE SODIUM 25 MCG TAB PO SCH (05:18)
[2016-08-02 06:06] LABS: AUTOMATED NEUTROPHIL # 3.9 TH/MM3 (1.8-7.7); BASOPHIL % 0.5 % (0.0-2.0); EOSINOPHIL # 0.2 TH/MM3 (0-0.4); EOSINOPHIL % 3.4 % (0.0-4.0); HEMATOCRIT 38.3 % (39.0-51.0); LYMPH % 13.9 % (9.0-44.0); LYMPHOCYTE # 0.8 TH/MM3 (1.0-4.8); MEAN CELL VOLUME 86.7 FL (80.0-100.0); MONO % 11.5 % (0.0-8.0); NEUT % 70.7 % (16.0-70.0); PLATELET COUNT 71 TH/MM3 (150-450); RED BLOOD COUNT 4.42 MIL/MM3 (4.50-5.90); RED CELL DISTRIBUTION WIDTH 18.3 % (11.6-17.2); WHITE BLOOD COUNT 5.5 TH/MM3 (4.0-11.0)
[2016-08-02 06:10] LABS: HEMO FLAGS AUTO DIFF
[2016-08-02 06:36] LABS: ALKALINE PHOSPHATASE 170 U/L (45-117); ALT (GPT) 37 U/L (12-78); ANION GAP 12 MEQ/L (5-15); AST (GOT) 27 U/L (15-37); BICARBONATE 24.8 MEQ/L (21.0-32.0); BLOOD UREA NITROGEN 36 MG/DL (7-18); CALCIUM-PROTEIN CORRECTED 8.2 MG/DL (8.5-10.1); CHLORIDE 104 MEQ/L (98-107); GLOMERULAR FILTRATION RATE 29 ML/MIN (>89); POTASSIUM 3.6 MEQ/L (3.5-5.1); SODIUM (NA) 141 MEQ/L (136-145); TOTAL BILIRUBIN ADULT 0.5 MG/DL (0.2-1.0)
[2016-08-02 07:39] LABS: OVALOCYTES 1+ (NORMAL); PLATELET ESTIMATE SMEAR LOW (NORMAL); PLATELET MORPHOLOGY NORMAL (NORMAL); SCAN/DIFF AUTO DIFF CONFIRMED
[2016-08-02 08:32] LABS: APTT (PATIENT) 76.3 SEC (24.3-30.1); PROTHROMBIN TIME - PATIENT 79.6 SEC (9.8-11.6)
[2016-08-02 08:35] LABS: INTERNATIONAL NORMALIZED RATIO 6.6 RATIO
[2016-08-02] MEDS: DOCUSATE SODIUM 100 MG CAP PO SCH ×2 (08:43→20:58)
[2016-08-02] MEDS: SODIUM CHLORIDE 0.9% FLUSH 5 ML FLUSH IV FLUSH SCH ×2 (08:43→19:39)
[2016-08-02] MEDS: MUPIROCIN 2% OINT 1 APPLIC/GM SYR NASAL SCH ×2 (08:43→20:58)
[2016-08-02] MEDS: FLUTICASONE PROPIONATE 50 MCG/ACT 16 GM NASAL SPRAY NASAL SCH ×2 (08:44→20:59)
[2016-08-02] MEDS: ACETAMINOPHEN/HYDROcodone 325 MG/5 MG TAB PO PRN (09:38)
[2016-08-02] MEDS ORDERED: AMIODARONE HCL 150 MG/3 ML VIAL ONE (10:35)
[2016-08-02] MEDS ORDERED: AMIODARONE INJ 150 MG in DEXTROSE 5% IN WATER 100ML INJ 97 ML IV ONE ×2 (11:00)
[2016-08-02] MEDS ORDERED: CALCIUM GLUCONATE INJ 2 GM in DEXTROSE 5% IN WATER 100ML INJ 100 ML IV ONE ×2 (11:00)
[2016-08-02] MEDS: AMIODARONE INJ 450 MG in DEXTROSE 5% IN WATE(EXCEL) INJ 241 ML IV SCH ×4 (11:35→17:55)
--- NOTE | 2016-08-02 11:38 | HHI.NPPN ---
Subjective History of Present Illness This patient is a 65-year-old male who gives a history of having acute renal insufficiency while admitted to [facility] last month. According to patient he was told that he had pneumonia and acute renal insufficiency. He received IV fluids according to the patient he developed edema which worsened post discharge. Initially the patient indicated to me that dialysis was not performed however I discussed his history with his daughter and she indicated that he was on dialysis temporarily in [place] and it was subsequently discontinued secondary to improved kidney function. Patient has no recollection of being told that he had a kidney condition prior to that admission. Patient indicates edema has worsened in the last week involving his scrotum. Denies using NSAIDs as an outpatient. No history of collagen vascular disease, nephrolithiasis, viral hepatitis. He also informed me that prior to his admission I can June he was ambulatory but subsequently was discharged to rehabilitation. Interval History Pt off BiPAP. On CRRT. Placed on Argatroban last evening for clotting. Dose being tapered down as aPTT has been elevated. Tolerating 250mL/hr UF. (Audra Vasquez) Review of Systems Respiratory Lungs: SOB (Audra Vasquez) Cardiovascular Cardiac: Edema (Audra Vasquez) Objective Data Data 08/01/16 08/02/16 19:00 07:00 Intake Total 730 ml 759 ml Output Total 1451 ml 4222 ml Balance -721 ml -3463 ml Intake Oral 200 ml IV Total 57 ml Tube Feeding 373 ml 639 ml Tube Irrigant 100 ml 120 ml Output Urine Total 250 ml 325 ml Hemodialysis 1201 ml 3897 ml # Bowel Movements 1 Vital Signs Date Time Temp Pulse Resp B/P Pulse Ox O2 Delivery O2 Flow Rate FiO2 08/02/16 11:20 114 96/65 08/02/16 10:00 128 08/02/16 08:00 97.6 25 134/63 08/02/16 08:00 122 08/02/16 07:58 94 Partial Rebreather 15.00 08/02/16 07:00 Partial Non-Rebreather 13.00 08/02/16 06:00 112 08/02/16 04:02 96 40 08/02/16 04:01 97.0 119 20 108/71 96 08/02/16 04:00 119 08/02/16 02:35 95 40 08/02/16 02:30 Bi-Pap 08/02/16 02:00 129 08/02/16 00:28 24 08/02/16 00:00 109 08/02/16 00:00 97.6 109 24 119/69 91 08/01/16 23:22 95 Partial Rebreather 12.00 08/01/16 23:00 98 Partial Non-Rebreather 12.00 08/01/16 22:26 96 40 08/01/16 22:00 120 08/01/16 21:02 98 BiPAP 40 08/01/16 21:00 91 Bi-Pap 08/01/16 20:03 102 08/01/16 20:00 97.4 108 20 141/83 92 08/01/16 19:30 90 Partial Non-Rebreather 12.00 08/01/16 18:00 115 08/01/16 16:00 114 08/01/16 16:00 97.9 112 24 123/48 95 08/01/16 15:52 95 Partial Non-Rebreather 12.00 08/01/16 14:00 112 08/01/16 12:15 102/58 08/01/16 12:00 107 08/01/16 12:00 98.3 107 25 83/55 95 (Audra Vasquez) -: 08/02/16 0500 08/02/16 0500 Tubes & Lines: Vas-Cath Medication Review Current Medications Medications (Trade) Dose Ordered Sig/Olivia Route Start Time Stop Time Status Last Admin (Colace) 100 mg BID PO 07/21/16 21:00 08/02/16 08:43 (Synthroid) 25 mcg DAILY@06 PO 07/22/16 06:00 08/02/16 05:18 (Lopressor) 12.5 mg BID PO 07/21/16 21:00 Hold 07/31/16 09:30 (Pill Splitter) 1 ea UNSCH PRN OTHER 07/21/16 16:30 (NS Flush) 2 ml UNSCH PRN IV FLUSH 07/21/16 16:30 07/21/16 18:37 (NS Flush) 2 ml BID IV FLUSH 07/21/16 21:00 08/02/16 08:43 (Tylenol) 650 mg Q4H PRN PO 07/21/16 16:30 (Zofran Inj) 4 mg Q6H PRN IV 07/21/16 16:30 08/02/16 07:03 ([place] 5-325 Mg) 1 tab Q4H PRN PO 07/21/16 16:45 08/02/16 09:38 (Imodium) 2 mg Q6H PRN PO 07/27/16 09:15 07/30/16 02:27 Fluticasone Propionate 1 spray 1 spray BID NASAL 07/27/16 09:14 07/30/16 09:40 (Coumadin Consult Pharmacy) 0 ml @ 0 mls/hr UNSCH OTHER 07/31/16 11:45 (Coumadin) 5 mg DAILY@16 PO 07/31/16 16:00 Hold 07/31/16 16:31 (D50w (Vial) Inj) 25 ml UNSCH PRN IV PUSH 07/31/16 13:30 (Glucagon Inj) 1 mg UNSCH PRN OTHER 07/31/16 13:30 Insulin Human Regular 1 1 Q6H SQ 07/31/16 13:30 08/02/16 01:17 Potassium Chloride 100 ml @ 100 mls/hr BOLUS PRN IV 07/31/16 13:45 (NS 1000 ml Inj) 1,000 ml @ 0 mls/hr UNSCH PRN OTHER 07/31/16 14:45 Miscellaneous Information Patient in critical care unit? Ass... [id number] XX 08/01/16 20:45 08/01/16 20:42 (Chlorhexidine 2% Cloth) 3 pack DAILY@04 TOP 08/02/16 04:00 08/06/16 04:01 08/02/16 04:03 Chlorhexidine Gluconate 3 pack 3 pack UNSCH PRN TOP 08/01/16 20:45 08/06/16 20:37 (Argatroban-0.9% NS Inj) 250 ml @ 0 mls/hr TITRATE IV 08/02/16 04:30 Mupirocin 1 applic 1 applic BID NASAL 08/02/16 09:00 08/02/16 08:43 Lactated Ringer's 1,000 ml @ 30 mls/hr Q24H IV 08/02/16 12:30 Sodium Chloride 500 ml @ 30 mls/hr [id number] IV 08/02/16 12:30 08/03/16 12:29 Calcium Gluconate 2 gm/Dextrose 120 ml @ 120 mls/hr ONCE ONCE IV 08/02/16 11:00 08/02/16 11:59 Amiodarone HCl 150 mg/Dextrose 100 ml @ 100 mls/hr ONCE ONCE IV 08/02/16 11:00 08/02/16 11:59 (Cordarone Inj/ D5W (Crane) Inj) 250 ml @ 0 mls/hr CONTINUOUS IV 08/02/16 11:00 (Audra Vasquez) Physical Exam General Appearance: No Acute Distress (Audra Vasquez) Pulmonary Resp Exam: Breath Sounds Equal, Diminished Breath Sounds (Audra Vasquez) Cardiology CV Exam: Regular, Normal Sinus Rhythm (Audra Vasquez) Gastrointestinal/Abdomen GI Exam: Distended GI Remarks Edema present lateral abdominal cohen (Audra Vasquez) Integumentary Skin Exam: Warm (Audra Vasquez) Extremeties Extremities Exam: Pitting Edema (3+ edema of extremities, edema scrotum. Edema dependent torso.), Dependent Edema Extremeties Remarks 2+ generalized including abdomen (Audra Vasquez) Neurologic Neuro Exam: Alert, Awake, Oriented (Audra Vasquez) Psychiatric Psych Exam: Appropriate Responses (Audra Vasquez) Assessment/Plan Discussed Condition With: Patient, Daughter Problem List: (1) Anasarca Plan: Doing well on CRRT. Argatroban held as aPTT elevated. Discussed with RN. To continue on CRRT. If dialyzer should clot and aPTT still elevated, we will start on conventional dialysis as BP can tolerate. He overall appears to be doing better. Fluid status improving and respiratory distress improved. He is off BiPAP and on NC. Prognosis remains guarded. Pending bone marrow bx as per heme/onco Medications should be adjusted for the patient's estimated GFR if clinically indicated. Avoid agents with significant potential for nephrotoxicity possible including NSAIDs for analgesia, iodine contrast agents. Gadolinium is contraindicated if the GFR is below 30. (2) CKD (chronic kidney disease) stage 3, GFR 30-59 ml/min Plan: May be related to nephrosclerosis of hypertension and aging. Also the patient may be predisposed to development of focal segmental glomerulosclerosis secondary to morbid obesity. I suspect that the GFR calculated is underestimating severity of the patient's renal clearance and this patient may even have end-stage renal disease. (3) CHF exacerbation Plan: Plan of management as above. (4) Pulmonary hypertension Plan: Defer management of patient's pulmonary condition as well as sleep apnea to primary care physician. (5) Cardiomyopathy (6) HTN (hypertension) Plan: History of (Audra Vasquez) Plan The patient did tolerate ultrafiltration with CRRT however his overall condition still appears to be poor. We'll reduce ultrafiltration rate to 200 mL per hour. Prognosis still guarded. Discussed change in ultrafiltration rate with the dialysis nurse. Could consider switching to conventional dialysis but still uncertain if he would tolerate same as he still requires significant fluid removal.. The exam, history, and the medical decision-making described in the above note were completed with the assistance of the PADave. I reviewed and agree with the findings presented. I attest that I had a [id number] encounter with the patient on the same day, and personally performed and documented my assessment and findings in the medical record. (No Rowan MD) Audra Vasquez Aug 02, 2016 11:38 No Rowan MD Aug 02, 2016 15:00
--- NOTE | 2016-08-02 11:50 | HHI.HCPN ---
Reason for visit a. To assist with evaluation and management of symptoms including: dyspnea, malnutrition b. To assist medical decision maker(s) with: better understanding of current medical conditions; weighing benefits/burdens of medical treatment options; making medical treatment decisions. (Maria Teresa Galindo) Subjective/Interval History Received call from daughter Lisa Schneider prior to my arrival to unit today. Spoke with her at length on phone approx 30 min, discussion included: * Palliative care role, team members, reason for consult * Review of medical/social/spiritual history--he affirms history as provided by patient yesterday * Patient cognitive and functional status in the months to weeks prior to this admission * Patient and/or family understanding of current medical conditions prognosis treatment options and treatments * Overall condition, prognosis; review patient remains very high risk for additional complications/setbacks, additional deterioration and // additionally reviewed that if he continues to experience, complications or decline he may wish to consider comfort tx only/de-escalation * CODE STATUS[] she supports patient choice of DNR * Palliative care contact information provided She appears to have a good understanding of patient multiple medical comorbidities, and current critical illness. She details that he had been doing okay until around May of this past year however since that time has actually been in the hospital setting more than in the rehabilitation setting spending a day or 2 and rehabilitation and then having a complication, ending up back in the hospital. She understands he remains high risk for additional complications, deterioration. She wishes to continue to give it a few more days on the dialysis to monitor his conditions and status, and wishes to continue to reevaluate his conditions every couple of days. She is open to ongoing discussions regarding treatments, goals, prognosis as course evolves. She also voices appreciation of care being provided for patient during his hospital course here. Patient seen little later after this conversation. Remains on nonrebreather mask. On CVVHD. He is alert, pleasant, again mostly oriented. Cooperative. Reasonable insight. Advise/review of my discussion with his daughter earlier this morning. He endorses feeling okay today, still short of breath, currently needs to have a bowel movement(assisted nursing to apply bedpan). CVVHD cont. PT/INR elevated (79.6/ 6.6) , argatroban held/discontinued. Patient on BiPAP overnight, nonrebreather during the day. Tolerating some oral diet in addition to tube feeding. (Maria Teresa Galindo) Advance Directives Health Care Surrogate: Copy in medical record (completed today 08/01) Durable Power of Food Services Manager: Copy in medical record (does not include medical decision-making) (Maria Teresa Galindo) Advance Directive Specifics Date completed: 08/01/16 Health Care Surrogate(s): Daughter Gail Schneider (Maria Teresa Galindo) Objective Vital Signs Date Time Temp Pulse Resp B/P Pulse Ox O2 Delivery O2 Flow Rate FiO2 08/02/16 11:20 114 96/65 08/02/16 10:00 128 08/02/16 08:00 97.6 25 134/63 08/02/16 08:00 122 08/02/16 07:58 94 Partial Rebreather 15.00 08/02/16 07:00 Partial Non-Rebreather 13.00 08/02/16 06:00 112 08/02/16 04:02 96 40 08/02/16 04:01 97.0 119 20 108/71 96 08/02/16 04:00 119 08/02/16 02:35 95 40 08/02/16 02:30 Bi-Pap 08/02/16 02:00 129 08/02/16 00:28 24 08/02/16 00:00 109 08/02/16 00:00 97.6 109 24 119/69 91 08/01/16 23:22 95 Partial Rebreather 12.00 08/01/16 23:00 98 Partial Non-Rebreather 12.00 08/01/16 22:26 96 40 08/01/16 22:00 120 08/01/16 21:02 98 BiPAP 40 08/01/16 21:00 91 Bi-Pap 08/01/16 20:03 102 08/01/16 20:00 97.4 108 20 141/83 92 08/01/16 19:30 90 Partial Non-Rebreather 12.00 08/01/16 18:00 115 08/01/16 16:00 114 08/01/16 16:00 97.9 112 24 123/48 95 08/01/16 15:52 95 Partial Non-Rebreather 12.00 08/01/16 14:00 112 08/01/16 12:15 102/58 08/01/16 12:00 107 08/01/16 12:00 98.3 107 25 83/55 95 Intake & Output 08/02/16 08/02/16 07:00 19:00 Intake Total 759 ml Output Total 4222 ml Balance -3463 ml Tube Feeding 639 ml Tube Irrigant 120 ml Output Urine Total 325 ml Hemodialysis 3897 ml Physical Exam CONSTITUTIONAL/GENERAL: This is a morbidly obese pt, chronically ill appearing, on NRB in ICU TUBES/LINES/DRAINS: Dialysis catheter right IJ, PIVs LUE, Hale catheter, NG tube SKIN: No jaundice, rashes. Venous stasis wounds to BLE. Chronic vascular changes BUE, multiple areas of ecchymosis upper and lower extremities. Both earlobes dusky, purple in coloration. Dressing to right doss clean and dry. Skin warm. CARDIOVASCULAR: Irregular rate and rhythm, atrial fib visible on bedside monitor.3+ generalized edema, pitting to lower extremities. Pedal pulses faintly palpable RESPIRATORY/CHEST: Symmetric, mildly labored respirations on 100% nonrebreather. Decreased air movement throughout more so to the left. Coarse scattered rhonchi. GASTROINTESTINAL: Abdomen soft, obese, non-tender.No hepato-splenomegaly, or palpable masses. No guarding. Bowel sounds present. GENITOURINARY: Without palpable bladder distension. Hale catheter in place. MUSCULOSKELETAL: Extremities with 3+ edema. No joint tenderness or effusion noted. NEUROLOGICAL: Awake and alert- mostly oriented forgetful to date and time. some insight to hospital course. Motor and sensory grossly within normal limits. Follows commands. Cognitively sharp. Moves all 4 extremities generalized weakness. PSYCHIATRIC: No obvious anxiety/depression. no apparent hallucinations or other psychotic thought process. (Maria Teresa Galindo) Diagnostic Tests Laboratory Laboratory Tests Test 07/30/16 07/30/16 07/30/16 07/31/16 12:00 12:30 15:42 06:00 Blood Gas Puncture Site LT RADIAL Blood Gas Patient Temperature 98.6 Blood Gas HCO3 25 mmol/L (22-26) Blood Gas Base Excess -1.4 mmol/L (-2-2) Blood Gas Oxygen Saturation 97 % (90-100) Arterial Blood pH 7.24 (7.380-7.420) Arterial Blood Partial 60 mmHg (38-42) Pressure CO2 Arterial Blood Partial 187 mmHg Pressure O2 (61-120) Arterial Blood Oxygen Content 16.1 Vol % (12.0-20.0) Arterial Blood 1.6 % (0-4) Carboxyhemoglobin Arterial Blood Methemoglobin 0.8 % (0-2) Blood Gas Hemoglobin 11.5 G/DL (12.0-16.0) Oxygen Delivery Device Partial Rebreather Blood Gas Liter Flow 15 L/M Prothrombin Time 24.4 SEC 21.7 SEC (9.8-11.6) (9.8-11.6) Prothromb Time International 2.1 RATIO 1.9 RATIO Ratio Activated Partial 32.9 SEC Thromboplast Time (24.3-30.1) Lactic Acid Level 1.7 mmol/L (0.4-2.0) Sodium Level 138 MEQ/L (136-145) Potassium Level 4.0 MEQ/L (3.5-5.1) Chloride Level 99 MEQ/L (98-107) Carbon Dioxide Level 29.9 MEQ/L (21.0-32.0) Anion Gap 9 MEQ/L (5-15) Blood Urea Nitrogen 44 MG/DL (7-18) Creatinine 3.27 MG/DL (0.60-1.30) Estimat Glomerular Filtration 19 ML/MIN (>89) Rate Random Glucose 156 MG/DL (74-106) Calcium Level 8.8 MG/DL (8.5-10.1) Test 07/31/16 07/31/16 08/01/16 08/01/16 14:35 23:39 05:25 09:45 White Blood Count 7.3 TH/MM3 5.8 TH/MM3 (4.0-11.0) (4.0-11.0) Red Blood Count 4.17 MIL/MM3 3.93 MIL/MM3 (4.50-5.90) (4.50-5.90) Hemoglobin 11.1 GM/DL 10.3 GM/DL (13.0-17.0) (13.0-17.0) Hematocrit 37.1 % 34.3 % (39.0-51.0) (39.0-51.0) Mean Corpuscular Volume 88.8 FL 87.3 FL (80.0-100.0) (80.0-100.0) Mean Corpuscular Hemoglobin 26.6 PG 26.3 PG (27.0-34.0) (27.0-34.0) Mean Corpuscular Hemoglobin 29.9 % 30.1 % Concent (32.0-36.0) (32.0-36.0) Red Cell Distribution Width 18.3 % 17.7 % (11.6-17.2) (11.6-17.2) Platelet Count 86 TH/MM3 69 TH/MM3 (150-450) (150-450) Mean Platelet Volume 8.8 FL 8.8 FL (7.0-11.0) (7.0-11.0) Neutrophils (%) (Auto) 76.4 % 68.6 % (16.0-70.0) (16.0-70.0) Lymphocytes (%) (Auto) 9.6 % 14.7 % (9.0-44.0) (9.0-44.0) Monocytes (%) (Auto) 10.8 % 12.8 % (0.0-8.0) (0.0-8.0) Eosinophils (%) (Auto) 2.2 % (0.0-4.0) 3.4 % (0.0-4.0) Basophils (%) (Auto) 1.0 % (0.0-2.0) 0.5 % (0.0-2.0) Neutrophils # (Auto) 5.6 TH/MM3 4.0 TH/MM3 (1.8-7.7) (1.8-7.7) Lymphocytes # (Auto) 0.7 TH/MM3 0.8 TH/MM3 (1.0-4.8) (1.0-4.8) Monocytes # (Auto) 0.8 TH/MM3 0.7 TH/MM3 (0-0.9) (0-0.9) Eosinophils # (Auto) 0.2 TH/MM3 0.2 TH/MM3 (0-0.4) (0-0.4) Basophils # (Auto) 0.1 TH/MM3 0.0 TH/MM3 (0-0.2) (0-0.2) CBC Comment AUTO DIFF AUTO DIFF Differential Comment AUTO DIFF FINAL DIFF CONFIRMED MANUAL Platelet Estimate LOW (NORMAL) LOW (NORMAL) Platelet Morphology Comment NORMAL NORMAL (NORMAL) (NORMAL) Ovalocytes 1+ (NORMAL) 1+ (NORMAL) Sodium Level 139 MEQ/L 139 MEQ/L 140 MEQ/L (136-145) (136-145) (136-145) Potassium Level 3.6 MEQ/L 3.6 MEQ/L 3.3 MEQ/L (3.5-5.1) (3.5-5.1) (3.5-5.1) Chloride Level 102 MEQ/L 104 MEQ/L 103 MEQ/L (98-107) (98-107) (98-107) Carbon Dioxide Level 28.6 MEQ/L 27.3 MEQ/L 27.2 MEQ/L (21.0-32.0) (21.0-32.0) (21.0-32.0) Anion Gap 8 MEQ/L (5-15) 8 MEQ/L (5-15) 10 MEQ/L (5-15) Blood Urea Nitrogen 44 MG/DL (7-18) 43 MG/DL (7-18) 42 MG/DL (7-18) Creatinine 3.10 MG/DL 2.77 MG/DL 2.87 MG/DL (0.60-1.30) (0.60-1.30) (0.60-1.30) Estimat Glomerular Filtration 20 ML/MIN (>89) 23 ML/MIN (>89) 22 ML/MIN (>89) Rate Random Glucose 130 MG/DL 116 MG/DL 100 MG/DL (74-106) (74-106) (74-106) Calcium Level 8.6 MG/DL 8.6 MG/DL 8.5 MG/DL (8.5-10.1) (8.5-10.1) (8.5-10.1) Differential Total Cells 100 Counted Neutrophils % (Manual) 69 % (16-70) Band Neutrophils % 1 % (0-6) Lymphocytes % 13 % (9-44) Monocytes % 14 % (0-8) Eosinophils % 2 % (0-4) Neutrophils # (Manual) 4.1 TH/MM3 (1.8-7.7) Myelocytes 1 % (0-0) Prothrombin Time 27.9 SEC (9.8-11.6) Prothromb Time International 2.4 RATIO Ratio Protein Corrected Calcium 9.1 MG/DL (8.5-10.1) Magnesium Level 2.1 MG/DL (1.5-2.5) Aspartate Amino Transf 37 U/L (15-37) (AST/SGOT) Alanine Aminotransferase 39 U/L (12-78) (ALT/SGPT) Total Protein 6.1 GM/DL (6.4-8.2) Urine Color STRAW (YELLW/STRAW) Urine Turbidity CLOUDY (CLEAR) Urine pH 5.5 (5.0-8.5) Urine Specific [place] 1.012 (1.002-1.035) Urine Protein 100 mg/dL (NEG-TRACE) Urine Glucose (UA) NEG mg/dL (NEG) Urine Ketones NEG mg/dL (NEG) Urine Occult Blood MOD (NEG) Urine Nitrite NEG (NEG) Urine Bilirubin NEG (NEG) Urine Urobilinogen LESS THAN 2.0 MG/DL (LESS THAN 2.0) Urine Leukocyte Esterase LARGE (NEG) Urine RBC /hpf (0-3) Urine WBC /hpf (0-5) Urine WBC Clumps MANY (NONE) Urine Squamous Epithelial 19 /hpf (0-5) Cells Urine Transitional Epithelial 27 /hpf (NONE) Cells Urine Calcium Oxalate Crystals FEW /hpf (NONE) Urine Bacteria MANY /hpf (NONE) Urine Hyaline Casts /lpf (RARE) Urine Mucus MANY /lpf (OCC) Urine Yeast with Hyphae MANY (NONE) Urine Yeast (Budding) MANY (NONE) Microscopic Urinalysis Comment CULTURE INDICATED Test 08/01/16 08/01/16 08/01/16 08/01/16 11:30 14:00 18:00 18:03 Activated Partial 32.9 SEC 98.9 SEC 99.1 SEC Thromboplast Time (24.3-30.1) (24.3-30.1) (24.3-30.1) Sodium Level 139 MEQ/L (136-145) Potassium Level 3.3 MEQ/L (3.5-5.1) Chloride Level 102 MEQ/L (98-107) Carbon Dioxide Level 26.2 MEQ/L (21.0-32.0) Anion Gap 11 MEQ/L (5-15) Blood Urea Nitrogen 37 MG/DL (7-18) Creatinine 2.42 MG/DL (0.60-1.30) Estimat Glomerular Filtration 27 ML/MIN (>89) Rate Random Glucose 122 MG/DL (74-106) Calcium Level 8.1 MG/DL (8.5-10.1) Protein Corrected Calcium 8.5 MG/DL (8.5-10.1) Total Bilirubin 0.5 MG/DL (0.2-1.0) Direct Bilirubin 0.2 MG/DL (0.0-0.2) Indirect Bilirubin 0.3 MG/DL (0.0-0.8) Aspartate Amino Transf 31 U/L (15-37) (AST/SGOT) Alanine Aminotransferase 38 U/L (12-78) (ALT/SGPT) Alkaline Phosphatase 162 U/L (45-117) Total Protein 6.4 GM/DL (6.4-8.2) Albumin 2.7 GM/DL (3.4-5.0) Test 08/01/16 08/01/16 08/02/16 08/02/16 20:33 22:55 02:25 05:00 Nasal Screen MRSA (PCR) POSITIVE (NEGATIVE) Activated Partial 95.8 SEC 86.7 SEC Thromboplast Time (24.3-30.1) (24.3-30.1) White Blood Count 5.5 TH/MM3 (4.0-11.0) Red Blood Count 4.42 MIL/MM3 (4.50-5.90) Hemoglobin 11.5 GM/DL (13.0-17.0) Hematocrit 38.3 % (39.0-51.0) Mean Corpuscular Volume 86.7 FL (80.0-100.0) Mean Corpuscular Hemoglobin 26.0 PG (27.0-34.0) Mean Corpuscular Hemoglobin 29.9 % Concent (32.0-36.0) Red Cell Distribution Width 18.3 % (11.6-17.2) Platelet Count 71 TH/MM3 (150-450) Mean Platelet Volume 8.7 FL (7.0-11.0) Neutrophils (%) (Auto) 70.7 % (16.0-70.0) Lymphocytes (%) (Auto) 13.9 % (9.0-44.0) Monocytes (%) (Auto) 11.5 % (0.0-8.0) Eosinophils (%) (Auto) 3.4 % (0.0-4.0) Basophils (%) (Auto) 0.5 % (0.0-2.0) Neutrophils # (Auto) 3.9 TH/MM3 (1.8-7.7) Lymphocytes # (Auto) 0.8 TH/MM3 (1.0-4.8) Monocytes # (Auto) 0.6 TH/MM3 (0-0.9) Eosinophils # (Auto) 0.2 TH/MM3 (0-0.4) Basophils # (Auto) 0.0 TH/MM3 (0-0.2) CBC Comment AUTO DIFF Differential Comment AUTO DIFF CONFIRMED Platelet Estimate LOW (NORMAL) Platelet Morphology Comment NORMAL (NORMAL) Ovalocytes 1+ (NORMAL) Sodium Level 141 MEQ/L (136-145) Potassium Level 3.6 MEQ/L (3.5-5.1) Chloride Level 104 MEQ/L (98-107) Carbon Dioxide Level 24.8 MEQ/L (21.0-32.0) Anion Gap 12 MEQ/L (5-15) Blood Urea Nitrogen 36 MG/DL (7-18) Creatinine 2.29 MG/DL (0.60-1.30) Estimat Glomerular Filtration 29 ML/MIN (>89) Rate Random Glucose 115 MG/DL (74-106) Calcium Level 8.1 MG/DL (8.5-10.1) Protein Corrected Calcium 8.2 MG/DL (8.5-10.1) Total Bilirubin 0.5 MG/DL (0.2-1.0) Aspartate Amino Transf 27 U/L (15-37) (AST/SGOT) Alanine Aminotransferase 37 U/L (12-78) (ALT/SGPT) Alkaline Phosphatase 170 U/L (45-117) Total Protein 7.1 GM/DL (6.4-8.2) Albumin 2.9 GM/DL (3.4-5.0) Test 08/02/16 07:45 Prothrombin Time 79.6 SEC (9.8-11.6) Prothromb Time International 6.6 RATIO Ratio Activated Partial 76.3 SEC Thromboplast Time (24.3-30.1) (Maria Teresa Galindo) Result Diagram: 08/02/16 0500 08/02/16 0500 Microbiology Microbiology Date/Time Procedure Status Source Growth 08/01/16 09:45 Urine Culture Received Urine Clean Catch Pending Imaging Last Impressions Chest X-Ray 07/31/16 0000 Signed Impressions: Service Date/Time: Sunday, July 31, 2016 11:29 - CONCLUSION: Vascath in good position. No evidence of a pneumothorax. Ruiz Paniagua MD Renal Ultrasound 07/26/16 0000 Signed Impressions: Service Date/Time: Tuesday, July 26, 2016 11:33 - CONCLUSION: Limited evaluation of the kidneys secondary to patient body habitus and nonvisualization of the left kidney. The right kidney cortex appears mildly thinned and increased in echotexture which may reflect chronic medical renal disease. No evidence of hydronephrosis. Farzaneh White MD Chest CT 07/21/16 1428 Signed Impressions: Service Date/Time: July 15:15 - CONCLUSION: 1. Dense consolidation of the left lower lobe. 2. Small bilateral effusions. 3. 3.0 x 1.9 cm pleural-based nodule on the left. This is indeterminate by CT imaging. No hilar or mediastinal adenopathy is seen. 4. There is fluid in the left upper quadrant surrounding the spleen. The spleen appears mildly enlarged. 5. Advanced cardiomegaly. Girma Metzger MD (Maria Teresa Galindo [facility]) Assessment and Plan Disease Oriented Problem List: (1) Hospital-acquired pneumonia (2) Acute and chronic respiratory failure (3) CHF exacerbation (4) Pulmonary hypertension (5) Anasarca (6) Cardiomyopathy (7) HTN (hypertension) (8) CKD (chronic kidney disease) stage 3, GFR 30-59 ml/min (9) Morbid obesity with BMI of 60.0-69.9, adult Symptom Scale: (1) Dyspnea 0-10 Scale: Unable to quantify (2) Malnutrition 0-10 Scale: Unable to quantify Comment: Risk for during acute hospitalization, related to BiPAP, invasive procedures altering oral intake. Albumin 2.5 initially. Pertinent Non-Medical Issues Psychosocial:Disabled for the past several years. Supported by 2 adult children. Legally . Has been in rehabilitation the past 4-5 months. Prior to that lived at home. Retired/disabled around 2009. 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 Spiritual: Mormonism Legal: Patient able to participate in decision-making, designated nataly Reynolds as healthcare surrogate on 08/01/16. Ethical issues impacting care: Important Contacts Nataly Schneider [phone] Prognosis This patient was admitted for dyspnea. Has multiple chronic medical conditions. Reported to have multiple recent hospitalizations related to the same issues. Has elected DNR status. May be able to stabilize, treat current conditions however also very high risk for further complications/setbacks in decline which he may not survive if does not desire intubation/resuscitation. . Code Status: No Code Plan * Legal decision maker: Patient able to participate in decision-making, designated daughter Gail as healthcare surrogate on 08/01/16. * Goals: semi aggressive, short of resuscitation for now. Daughter and patient wished to proceed with ongoing aggressive interventions with the hope of stabilizing and improving patient however they also understand he remains high risk for further complications and clinical deterioration. They are open to ongoing discussions regarding goals, prognosis as clinical course evolves. * CODE STATUS: DNR * SYMPTOMS: --Dyspnea-+ HCAP, req. NRB mask. Ongoing dyspnea x weeks prior to presentation, now req. CVVHD for fluid --Malnutrition- limited PO intake due to O2 requirements, dyspnea, receiving TF via NGT. albumin 2.5 Taking some PO + tolerating TF currently --Pain- generalized "aches" to body, ?r/t bedbound immobile status. Has prn norco 5mg, using 2-3x per day, effective. will cont to evaluate. * Palliative care will continue to follow during hospital course as condition evolves, to assist patient/decision-maker with understanding of medical conditions, weighing benefits/burdens of treatment options, for clarification of goals of treatment. Additionally will assist with any symptoms of palliative concern (Maria Teresa Galindo) Time Spent Total Floor Time (mins): 40 Face to Face Time (mins): 10 >50% Counseling/Coord of Care: Yes (d/w RN, critical care) (Maria Teresa Galindo) Attestation To help prompt me to consider important information that might be impacting today's encounter and assessment, information from prior notes written by myself or my colleagues may have been "brought forward" into today's note. My signature on this note, however, is an attestation that I personally performed the exam, history, and/or decision-making noted today, and, unless otherwise indicated, the interactions with patient, family, and staff as well as the review of records all occurred today. I also attest that the listed assessment and stated plan reflect my best clinical judgment today based on the combination of historical information, prior notes, and today's exam/ interactions. When time spent is documented, it refers only to time spent today by the signer, or if indicated, combined time spent today by collaborating physician/nurse practitioner. (Maria Teresa Galindo) Collaborating MD Comments Chart reviewed. Case discussed with palliative care LEAD RETAIL SALES ASSOCIATE. Above LEAD RETAIL SALES ASSOCIATE note reviewed and I concur. . (Hans Casillas MD) Maria Teresa Galindo Aug 02, 2016 11:50 Hans Casillas MD Sep 04, 2016 07:39
[2016-08-02] MEDS: LACTATED RINGER'S 1000 ML IV SCH (12:30)
[2016-08-02] MEDS: SODIUM CHLORID 0.9% 500 ML IV SCH (12:30)
--- NOTE | 2016-08-02 12:40 | HHI.CCPN ---
Subjective Remarks/Hospital Course I was consulted by Dr. Woo for a patient transfer to the ICU for a bumex infusion. In brief, this is a 65yM with long medical history, including CAD with stents, atrial fibrillation on Coumadin, CHF, HTN, CKD stage III, NINO on BiPAP at night , chronic respiratory failure on home O2, who initially presented with hypoxia, thought to be HCAP, CHF exacerbation, and new acute on chronic kidney injury. I discussed the case with Dr. Woo and nephrology feels that the next step in management of the patient is to transition to a bumex infusion prior to instituting possible renal replacement therapy. Thus, ICU admission is required for continuous bumex infusion. I have briefly evaluated the patient and my pertinent findings are: morbidly obese gentleman lying in bed on BiPAP, fio2 50%, /. somnolent but arousable. Mallampatti class IV, short thyromental distance, large neck circumference. distant breath sounds and muffled cardiac sounds due to morbid obesity, but clear to auscultation and cardiac sounds without overt appreciable murmurs. he is not tachypneic and not in distress. K 3.5, serum bicarb 27. CXR demonstrates dense LLL consolidation. I agree with Dr. Woo that the patient meets ICU criteria for continuous bumex infusion. I agree with the anticipated plan of bumex infusion with intermittent prn BiPAP (home BiPAP use), abx, and oxygen as needed. In my brief review of the medical record, I agree with nephrology that there is no current indication for emergent renal replacement therapy. I did talk with Dr. Woo that given his echo findings of right ventricular dysfunction and severe pulmonary hypertension with NINO, he is likely to have early cor pulmonale, and I would recommend being aggressive with early renal replacement therapy if no improvement with bumex infusion. Per the documentation, the patient is a DNR, and Dr. Woo is re-confirming whether or not he would want to be DNI or intubated. He would be an anticipated difficult mask ventilation and difficult intubation. 07/31 Patient is on partial non rebreather, renal function worse today with Cr: 3.27 from 2.76 patient to start CVVHD per renal. 08/01 Patient was on BIPAP overnight 06/20 with 40% FIO2. More awake and alert today. CVVHD started yesterday however it was clotted off overnight. 08/02: On partial rebreather, remains on CVVHD. Wishes to eat. Objective Vital Signs Date Time Temp Pulse Resp B/P Pulse Ox O2 Delivery O2 Flow Rate FiO2 08/02/16 11:20 114 96/65 08/02/16 08:00 97.6 25 08/02/16 07:58 94 Partial Rebreather 15.00 08/02/16 04:02 40 Intake and Output 08/01/16 08/01/16 08/02/16 08:00 16:00 00:00 Intake Total 370 ml 730 ml 405 ml Output Total 275 ml 1451 ml 2019 ml Balance 95 ml -721 ml -1614 ml Result Diagram: 08/02/16 0500 08/02/16 0500 Imaging Last Impressions Chest X-Ray 07/31/16 0000 Signed Impressions: Service Date/Time: Sunday, July 31, 2016 11:29 - CONCLUSION: Vascath in good position. No evidence of a pneumothorax. Ruiz Paniagua MD Renal Ultrasound 07/26/16 0000 Signed Impressions: Service Date/Time: Tuesday, July 26, 2016 11:33 - CONCLUSION: Limited evaluation of the kidneys secondary to patient body habitus and nonvisualization of the left kidney. The right kidney cortex appears mildly thinned and increased in echotexture which may reflect chronic medical renal disease. No evidence of hydronephrosis. Farzaneh White MD Chest CT 07/21/16 1428 Signed Impressions: Service Date/Time: July 15:15 - CONCLUSION: 1. Dense consolidation of the left lower lobe. 2. Small bilateral effusions. 3. 3.0 x 1.9 cm pleural-based nodule on the left. This is indeterminate by CT imaging. No hilar or mediastinal adenopathy is seen. 4. There is fluid in the left upper quadrant surrounding the spleen. The spleen appears mildly enlarged. 5. Advanced cardiomegaly. Girma Metzger MD Objective Remarks GENERAL: Patient is 65 yo male, lying in bed in mild resp distress on partial rebreather SKIN: Warm and dry. HEAD: Normocephalic. EYES: No scleral icterus. No injection or drainage. NECK: Supple, trachea midline. No JVD or lymphadenopathy. CARDIOVASCULAR: Tachycardic without murmurs, gallops, or rubs. RESPIRATORY: Breath sounds equal bilaterally. No accessory muscle use. GASTROINTESTINAL: Abdomen soft, non-tender, nondistended. MUSCULOSKELETAL: No cyanosis, + edema. Neuro: AAO x3 Procedures None. A/P Assessment and Plan 1Acute resp failure 2) Acute on chronic renal failure 3) CHF/Cardiomyopathy 4)Mod-severe pulm HTN with PAP 75mmHg 5)CAD 6)Afib on Coumadin 7)Hx HTN 8)Anemia, thrombocytopenia 9)Hypothyroidism 10)Morbid obesity, NINO Plan Neuro: Awake, avoid sedatives Pulm: Wean down oxygen as jonel keep sat >92% Bronchodilators, NIPPV PRN during day and nocturnally qhs for NINO CV:Monitor HR and BP keep MAP>65mmHg. Echo showed EF 45-50%, PAP 75mmHg / Renal: Monitor renal function, I/O's, avoid nephrotoxins Renal Dr.. Dunn- on CVVHD per renal for fluid removal. GI: On PO diet ID: Continue with Levaquin, monitor for signs of infections ( Fever, WBC) Check UA with cx if indicated Heme: Monitor CBC Endo: SSI if needed for glycemic control GI prophylaxis DVT prophylaxis - Coumadin, Coumadin on hold for thrombocytopenia. Lines: Right IJ vascath placed 07/31, peripheral IV's Palliative care to asses goals of care level 3 Vargas Jaimes MD Aug 02, 2016 12:40
[2016-08-02 19:51] LABS: BICARBONATE 22.6 MEQ/L (21.0-32.0); CALCIUM-PROTEIN CORRECTED 8.3 MG/DL (8.5-10.1); POTASSIUM 3.6 MEQ/L (3.5-5.1)
[2016-08-03] VITALS (12 sets, daily range): BP systolic 88–104; BP diastolic 54–73; PULSE 83–117; RESP 21–28; TEMP 97.7–98.4; O2SAT 90–96
[2016-08-03] MEDS: AMIODARONE INJ 450 MG in DEXTROSE 5% IN WATE(EXCEL) INJ 241 ML IV SCH ×2 (00:06)
[2016-08-03] MEDS: INSULIN NovoLIN REGULAR SUPPLEMENTAL SCALE SQ SCH ×4 (01:19→19:30)
[2016-08-03] MEDS: RESP: ALBUTEROL 2.5 MG/IPRATROPIUM 0.5 MG NEB (SCH) NEB ×6 (03:05→23:47)
[2016-08-03 03:25] LABS: BICARBONATE 21.7 MEQ/L (21.0-32.0); POTASSIUM 3.6 MEQ/L (3.5-5.1)
[2016-08-03] MEDS: CHLORHEXIDINE GLUCONATE 2 % 1 PACK (2 CLOTHS)(taper/protocol) TOP SCH (04:00)
[2016-08-03] MEDS: SODIUM CHLORID 0.9% 500 ML IV SCH (04:33)
[2016-08-03] MEDS: LEVOTHYROXINE SODIUM 25 MCG TAB PO SCH (05:52)
[2016-08-03 06:02] LABS: INTERNATIONAL NORMALIZED RATIO 3.7 RATIO; PROTHROMBIN TIME - PATIENT 43.8 SEC (9.8-11.6)
[2016-08-03 06:12] LABS: BICARBONATE 21.4 MEQ/L (21.0-32.0); CALCIUM-PROTEIN CORRECTED 8.4 MG/DL (8.5-10.1); POTASSIUM 3.5 MEQ/L (3.5-5.1)
[2016-08-03] MEDS: DOCUSATE SODIUM 100 MG CAP PO SCH ×2 (09:00→19:33)
[2016-08-03] MEDS: MUPIROCIN 2% OINT 1 APPLIC/GM SYR NASAL SCH ×2 (09:34→19:33)
[2016-08-03] MEDS: FLUTICASONE PROPIONATE 50 MCG/ACT 16 GM NASAL SPRAY NASAL SCH ×2 (09:34→19:33)
[2016-08-03] MEDS: SODIUM CHLORIDE 0.9% FLUSH 5 ML FLUSH IV FLUSH SCH ×2 (09:34→19:33)
[2016-08-03] MEDS ORDERED: ALPRAZolam 0.5 MG TAB PO ONE (10:45)
--- NOTE | 2016-08-03 10:50 | HHI.CCPN ---
Subjective Remarks/Hospital Course I was consulted by Dr. Woo for a patient transfer to the ICU for a bumex infusion. In brief, this is a 65yM with long medical history, including CAD with stents, atrial fibrillation on Coumadin, CHF, HTN, CKD stage III, NINO on BiPAP at night , chronic respiratory failure on home O2, who initially presented with hypoxia, thought to be HCAP, CHF exacerbation, and new acute on chronic kidney injury. I discussed the case with Dr. Woo and nephrology feels that the next step in management of the patient is to transition to a bumex infusion prior to instituting possible renal replacement therapy. Thus, ICU admission is required for continuous bumex infusion. I have briefly evaluated the patient and my pertinent findings are: morbidly obese gentleman lying in bed on BiPAP, fio2 50%, /. somnolent but arousable. Mallampatti class IV, short thyromental distance, large neck circumference. distant breath sounds and muffled cardiac sounds due to morbid obesity, but clear to auscultation and cardiac sounds without overt appreciable murmurs. he is not tachypneic and not in distress. K 3.5, serum bicarb 27. CXR demonstrates dense LLL consolidation. I agree with Dr. Woo that the patient meets ICU criteria for continuous bumex infusion. I agree with the anticipated plan of bumex infusion with intermittent prn BiPAP (home BiPAP use), abx, and oxygen as needed. In my brief review of the medical record, I agree with nephrology that there is no current indication for emergent renal replacement therapy. I did talk with Dr. Woo that given his echo findings of right ventricular dysfunction and severe pulmonary hypertension with NINO, he is likely to have early cor pulmonale, and I would recommend being aggressive with early renal replacement therapy if no improvement with bumex infusion. Per the documentation, the patient is a DNR, and Dr. Woo is re-confirming whether or not he would want to be DNI or intubated. He would be an anticipated difficult mask ventilation and difficult intubation. 07/31 Patient is on partial non rebreather, renal function worse today with Cr: 3.27 from 2.76 patient to start CVVHD per renal. 08/01 Patient was on BIPAP overnight 06/20 with 40% FIO2. More awake and alert today. CVVHD started yesterday however it was clotted off overnight. 08/02: On partial rebreather, remains on CVVHD. Wishes to eat. 08/03: On BiPAP overnight. Switching to partial rebreather in the morning. Remains on CRRT. 5 L negative since yesterday. Objective Vital Signs Date Time Temp Pulse Resp B/P Pulse Ox O2 Delivery O2 Flow Rate FiO2 08/03/16 07:38 94 Non-Rebreather 12.00 08/03/16 07:00 50 08/03/16 06:01 96 08/03/16 04:13 97.7 26 104/60 Intake and Output 08/02/16 08/02/16 08/03/16 08:00 16:00 00:00 Intake Total 354 ml 771 ml 615 ml Output Total 2203 ml 2176 ml 2182 ml Balance -1849 ml -1405 ml -1567 ml Result Diagram: 08/02/16 0500 08/03/16 0344 Other Results Microbiology Date/Time Procedure Status Source Growth 08/01/16 09:45 Urine Culture - Final Complete Urine Clean Catch Yeast-Id To Follow Prote[facility] Imaging Last Impressions Chest X-Ray 07/31/16 0000 Signed Impressions: Service Date/Time: Sunday, July 31, 2016 11:29 - CONCLUSION: Vascath in good position. No evidence of a pneumothorax. Ruiz Paniagua MD Renal Ultrasound 07/26/16 0000 Signed Impressions: Service Date/Time: Tuesday, July 26, 2016 11:33 - CONCLUSION: Limited evaluation of the kidneys secondary to patient body habitus and nonvisualization of the left kidney. The right kidney cortex appears mildly thinned and increased in echotexture which may reflect chronic medical renal disease. No evidence of hydronephrosis. Farzaneh White MD Chest CT 07/21/16 1428 Signed Impressions: Service Date/Time: July 15:15 - CONCLUSION: 1. Dense consolidation of the left lower lobe. 2. Small bilateral effusions. 3. 3.0 x 1.9 cm pleural-based nodule on the left. This is indeterminate by CT imaging. No hilar or mediastinal adenopathy is seen. 4. There is fluid in the left upper quadrant surrounding the spleen. The spleen appears mildly enlarged. 5. Advanced cardiomegaly. Girma Metzger MD Objective Remarks GENERAL: Patient is 65 yo male, lying in bed in mild resp distress on partial rebreather SKIN: Warm and dry. HEAD: Normocephalic. EYES: No scleral icterus. No injection or drainage. NECK: Supple, trachea midline. No JVD or lymphadenopathy. CARDIOVASCULAR: Tachycardic without murmurs, gallops, or rubs. RESPIRATORY: Breath sounds equal bilaterally. No accessory muscle use. GASTROINTESTINAL: Abdomen soft, non-tender, nondistended. MUSCULOSKELETAL: No cyanosis, + edema. Neuro: AAO x3 Procedures None. A/P Assessment and Plan 1Acute resp failure 2) Acute on chronic renal failure 3) CHF/Cardiomyopathy 4)Mod-severe pulm HTN with PAP 75mmHg 5)CAD 6)Afib on Coumadin 7)Hx HTN 8)Anemia, thrombocytopenia 9)Hypothyroidism 10)Morbid obesity, NINO 11) UTI Plan Neuro: Awake, avoid sedatives Pulm: Wean down oxygen as jonel keep sat >92% Bronchodilators, NIPPV PRN during day and nocturnally qhs for NINO CV:Monitor HR and BP keep MAP>65mmHg. Echo showed EF 45-50%, PAP 75mmHg Fluid removal with CVVHD / Renal: Monitor renal function, I/O's, avoid nephrotoxins Renal Dr.. Dunn- on CVVHD per renal for fluid removal. GI: On PO diet ID: Start Rocephin IV, diflucan PO on 08/03 for UTI with jasbir/ proteus. Check UA with cx if indicated Heme: Monitor CBC. On coumadin (held due to elevated PT/INR). On argatroban for CVVHD. Endo: SSI if needed for glycemic control GI prophylaxis DVT prophylaxis - Coumadin, Coumadin on hold for thrombocytopenia/ elevated INR. On argatroban for CVVHD Lines: Right IJ vascath placed 07/31, peripheral IV's Palliative care to assess goals of care level 3 Vargas Jaimes MD Aug 03, 2016 10:50
[2016-08-03] MEDS: FLUCONAZOLE 200 MG TAB PO SCH (10:57)
[2016-08-03 11:19] LABS: BICARBONATE 22.8 MEQ/L (21.0-32.0); POTASSIUM 3.5 MEQ/L (3.5-5.1)
[2016-08-03] MEDS: AZTREONAM INJ 1,000 MG in SODIUM CHLORIDE 0.9% INJ 100 ML IV SCH ×2 (11:57→19:32)
[2016-08-03] MEDS: LACTATED RINGER'S 1000 ML IV SCH (11:57)
[2016-08-03] MEDS ORDERED: cefTRIAXone INJ 1,000 MG in SODIUM CHLORIDE 0.9% INJ 100 ML IV SCH (12:00)
--- NOTE | 2016-08-03 14:53 | HHI.HCPN ---
Reason for visit a. To assist with evaluation and management of symptoms including: dyspnea, malnutrition b. To assist medical decision maker(s) with: better understanding of current medical conditions; weighing benefits/burdens of medical treatment options; making medical treatment decisions. . (Eli Guerrero) Subjective/Interval History Patient seen and assessed in room 512. Patient was on BiPAP overnight, switch to 12L via non-rebreather earlier this morning. Oxygen saturations in the mid 90s. Patient lethargic on examination, opens eyes briefly to verbal stimuli. Does not appear to be in any acute distress. Venous stasis wounds to BLE. Chronic vascular changes BUE, multiple areas of ecchymosis upper and lower extremities. Both earlobes dusky, purple in coloration. Dressing to right doss clean and dry. Skin warm. Extremities with 3+ to 4+ edema. Tolerating NG tube feeding, also tolerating oral intake eating 25% breakfast per note. Remains on CRRT. 08/03/16: BUN 30, creatinine 2.08, GFR 32. Coumadin remains on hold for elevated INR, argatroban held/discontinued. INR decreased from 6.6 yesterday to 3.7 today. Afebrile. WBC of 5.5 Started on PO Diflucan and IV Aztreonam today for UTI with Silvina and Proteus. Negative blood culture. . Family/friend interactions Phone call placed to patient's daughter, Gail Schneider, to introduce myself as part of the palliative care team. Patient's daughter previously spoke to [facility] yesterday 08/02/16. Message left on the patient's daughter's voicemail with my contact information. . (Eli Guerrero) Advance Directives Health Care Surrogate: Copy in medical record (completed today 08/01) Durable Power of Advisor Advocate Angel Co Founder: Copy in medical record (does not include medical decision-making) (Eli Guerrero) Advance Directive Specifics Date completed: 08/01/16 Health Care Surrogate(s): Daughter Gail Schneider (Eli Guerrero) Objective Vital Signs Date Time Temp Pulse Resp B/P Pulse Ox O2 Delivery O2 Flow Rate FiO2 08/03/16 07:38 94 Non-Rebreather 12.00 08/03/16 07:00 Bi-Pap 50 08/03/16 06:01 96 08/03/16 04:13 97.7 95 26 104/60 90 08/03/16 04:13 95 08/03/16 03:52 95 50 08/03/16 02:00 92 08/03/16 00:00 104 08/03/16 00:00 97.9 117 28 96/73 90 08/03/16 00:00 93 50 08/02/16 22:00 104 08/02/16 20:00 98.2 101 24 111/62 92 08/02/16 20:00 101 08/02/16 19:34 93 BiPAP 08/02/16 19:34 93 50 08/02/16 19:00 Bi-Pap 50 08/02/16 18:00 102 08/02/16 16:08 Bi-Pap 45 08/02/16 16:00 96.9 109 20 135/85 91 08/02/16 16:00 109 08/02/16 15:47 95 40 Intake & Output 08/03/16 08/03/16 07:00 19:00 Intake Total 1094 ml 930 ml Output Total 4015 ml 0 ml Balance -2921 ml 930 ml Intake Oral 45 ml 240 ml IV Total 310 ml 240 ml Tube Feeding 679 ml 400 ml Tube Irrigant 60 ml 50 ml Output Urine Total 10 ml 0 ml Hemodialysis 4005 ml # Bowel Movements 1 0 . Physical Exam CONSTITUTIONAL/GENERAL: This is a morbidly obese pt, chronically ill appearing, on NRB in ICU TUBES/LINES/DRAINS: Dialysis catheter right IJ, PIVs LUE, Hale catheter, NG tube SKIN: Venous stasis wounds to BLE. Chronic vascular changes BUE, multiple areas of ecchymosis upper and lower extremities. Both earlobes dusky, purple in coloration. Dressing to right doss clean and dry. Skin warm. CARDIOVASCULAR: Irregular rate and rhythm. 3+ generalized edema, pitting to lower extremities. Pedal pulses faintly palpable RESPIRATORY/CHEST: Symmetric, mildly labored respirations on 12L via nonrebreather. Decreased air movement throughout more so to the left. Coarse scattered rhonchi. GASTROINTESTINAL: Abdomen soft, obese, non-tender. No guarding. Bowel sounds present. GENITOURINARY: Without palpable bladder distension. Hale catheter in place. MUSCULOSKELETAL: Extremities with 3+ to 4+ edema. NEUROLOGICAL: Patient lethargic on examination, opens eyes briefly to verbal stimuli. Moves all 4 extremities generalized weakness. PSYCHIATRIC: Difficult to assess secondary to lethargy. No obvious anxiety/ depression. no apparent hallucinations or other psychotic thought process. . (Eli Guerrero) Diagnostic Tests Laboratory Laboratory Tests Test 07/31/16 07/31/16 08/01/16 08/01/16 14:35 23:39 05:25 09:45 White Blood Count 7.3 TH/MM3 5.8 TH/MM3 (4.0-11.0) (4.0-11.0) Red Blood Count 4.17 MIL/MM3 3.93 MIL/MM3 (4.50-5.90) (4.50-5.90) Hemoglobin 11.1 GM/DL 10.3 GM/DL (13.0-17.0) (13.0-17.0) Hematocrit 37.1 % 34.3 % (39.0-51.0) (39.0-51.0) Mean Corpuscular Volume 88.8 FL 87.3 FL (80.0-100.0) (80.0-100.0) Mean Corpuscular Hemoglobin 26.6 PG 26.3 PG (27.0-34.0) (27.0-34.0) Mean Corpuscular Hemoglobin 29.9 % 30.1 % Concent (32.0-36.0) (32.0-36.0) Red Cell Distribution Width 18.3 % 17.7 % (11.6-17.2) (11.6-17.2) Platelet Count 86 TH/MM3 69 TH/MM3 (150-450) (150-450) Mean Platelet Volume 8.8 FL 8.8 FL (7.0-11.0) (7.0-11.0) Neutrophils (%) (Auto) 76.4 % 68.6 % (16.0-70.0) (16.0-70.0) Lymphocytes (%) (Auto) 9.6 % 14.7 % (9.0-44.0) (9.0-44.0) Monocytes (%) (Auto) 10.8 % 12.8 % (0.0-8.0) (0.0-8.0) Eosinophils (%) (Auto) 2.2 % (0.0-4.0) 3.4 % (0.0-4.0) Basophils (%) (Auto) 1.0 % (0.0-2.0) 0.5 % (0.0-2.0) Neutrophils # (Auto) 5.6 TH/MM3 4.0 TH/MM3 (1.8-7.7) (1.8-7.7) Lymphocytes # (Auto) 0.7 TH/MM3 0.8 TH/MM3 (1.0-4.8) (1.0-4.8) Monocytes # (Auto) 0.8 TH/MM3 0.7 TH/MM3 (0-0.9) (0-0.9) Eosinophils # (Auto) 0.2 TH/MM3 0.2 TH/MM3 (0-0.4) (0-0.4) Basophils # (Auto) 0.1 TH/MM3 0.0 TH/MM3 (0-0.2) (0-0.2) CBC Comment AUTO DIFF AUTO DIFF Differential Comment AUTO DIFF FINAL DIFF CONFIRMED MANUAL Platelet Estimate LOW (NORMAL) LOW (NORMAL) Platelet Morphology Comment NORMAL NORMAL (NORMAL) (NORMAL) Ovalocytes 1+ (NORMAL) 1+ (NORMAL) Sodium Level 139 MEQ/L 139 MEQ/L 140 MEQ/L (136-145) (136-145) (136-145) Potassium Level 3.6 MEQ/L 3.6 MEQ/L 3.3 MEQ/L (3.5-5.1) (3.5-5.1) (3.5-5.1) Chloride Level 102 MEQ/L 104 MEQ/L 103 MEQ/L (98-107) (98-107) (98-107) Carbon Dioxide Level 28.6 MEQ/L 27.3 MEQ/L 27.2 MEQ/L (21.0-32.0) (21.0-32.0) (21.0-32.0) Anion Gap 8 MEQ/L (5-15) 8 MEQ/L (5-15) 10 MEQ/L (5-15) Blood Urea Nitrogen 44 MG/DL (7-18) 43 MG/DL (7-18) 42 MG/DL (7-18) Creatinine 3.10 MG/DL 2.77 MG/DL 2.87 MG/DL (0.60-1.30) (0.60-1.30) (0.60-1.30) Estimat Glomerular Filtration 20 ML/MIN (>89) 23 ML/MIN (>89) 22 ML/MIN (>89) Rate Random Glucose 130 MG/DL 116 MG/DL 100 MG/DL (74-106) (74-106) (74-106) Calcium Level 8.6 MG/DL 8.6 MG/DL 8.5 MG/DL (8.5-10.1) (8.5-10.1) (8.5-10.1) Differential Total Cells 100 Counted Neutrophils % (Manual) 69 % (16-70) Band Neutrophils % 1 % (0-6) Lymphocytes % 13 % (9-44) Monocytes % 14 % (0-8) Eosinophils % 2 % (0-4) Neutrophils # (Manual) 4.1 TH/MM3 (1.8-7.7) Myelocytes 1 % (0-0) Prothrombin Time 27.9 SEC (9.8-11.6) Prothromb Time International 2.4 RATIO Ratio Protein Corrected Calcium 9.1 MG/DL (8.5-10.1) Magnesium Level 2.1 MG/DL (1.5-2.5) Aspartate Amino Transf 37 U/L (15-37) (AST/SGOT) Alanine Aminotransferase 39 U/L (12-78) (ALT/SGPT) Total Protein 6.1 GM/DL (6.4-8.2) Urine Color STRAW (YELLW/STRAW) Urine Turbidity CLOUDY (CLEAR) Urine pH 5.5 (5.0-8.5) Urine Specific [place] 1.012 (1.002-1.035) Urine Protein 100 mg/dL (NEG-TRACE) Urine Glucose (UA) NEG mg/dL (NEG) Urine Ketones NEG mg/dL (NEG) Urine Occult Blood MOD (NEG) Urine Nitrite NEG (NEG) Urine Bilirubin NEG (NEG) Urine Urobilinogen LESS THAN 2.0 MG/DL (LESS THAN 2.0) Urine Leukocyte Esterase LARGE (NEG) Urine RBC /hpf (0-3) Urine WBC /hpf (0-5) Urine WBC Clumps MANY (NONE) Urine Squamous Epithelial 19 /hpf (0-5) Cells Urine Transitional Epithelial 27 /hpf (NONE) Cells Urine Calcium Oxalate Crystals FEW /hpf (NONE) Urine Bacteria MANY /hpf (NONE) Urine Hyaline Casts /lpf (RARE) Urine Mucus MANY /lpf (OCC) Urine Yeast with Hyphae MANY (NONE) Urine Yeast (Budding) MANY (NONE) Microscopic Urinalysis Comment CULTURE INDICATED Test 08/01/16 08/01/16 08/01/16 08/01/16 11:30 14:00 18:00 18:03 Activated Partial 32.9 SEC 98.9 SEC 99.1 SEC Thromboplast Time (24.3-30.1) (24.3-30.1) (24.3-30.1) Sodium Level 139 MEQ/L (136-145) Potassium Level 3.3 MEQ/L (3.5-5.1) Chloride Level 102 MEQ/L (98-107) Carbon Dioxide Level 26.2 MEQ/L (21.0-32.0) Anion Gap 11 MEQ/L (5-15) Blood Urea Nitrogen 37 MG/DL (7-18) Creatinine 2.42 MG/DL (0.60-1.30) Estimat Glomerular Filtration 27 ML/MIN (>89) Rate Random Glucose 122 MG/DL (74-106) Calcium Level 8.1 MG/DL (8.5-10.1) Protein Corrected Calcium 8.5 MG/DL (8.5-10.1) Total Bilirubin 0.5 MG/DL (0.2-1.0) Direct Bilirubin 0.2 MG/DL (0.0-0.2) Indirect Bilirubin 0.3 MG/DL (0.0-0.8) Aspartate Amino Transf 31 U/L (15-37) (AST/SGOT) Alanine Aminotransferase 38 U/L (12-78) (ALT/SGPT) Alkaline Phosphatase 162 U/L (45-117) Total Protein 6.4 GM/DL (6.4-8.2) Albumin 2.7 GM/DL (3.4-5.0) Test 08/01/16 08/01/16 08/02/16 08/02/16 20:33 22:55 02:25 05:00 Nasal Screen MRSA (PCR) POSITIVE (NEGATIVE) Activated Partial 95.8 SEC 86.7 SEC Thromboplast Time (24.3-30.1) (24.3-30.1) White Blood Count 5.5 TH/MM3 (4.0-11.0) Red Blood Count 4.42 MIL/MM3 (4.50-5.90) Hemoglobin 11.5 GM/DL (13.0-17.0) Hematocrit 38.3 % (39.0-51.0) Mean Corpuscular Volume 86.7 FL (80.0-100.0) Mean Corpuscular Hemoglobin 26.0 PG (27.0-34.0) Mean Corpuscular Hemoglobin 29.9 % Concent (32.0-36.0) Red Cell Distribution Width 18.3 % (11.6-17.2) Platelet Count 71 TH/MM3 (150-450) Mean Platelet Volume 8.7 FL (7.0-11.0) Neutrophils (%) (Auto) 70.7 % (16.0-70.0) Lymphocytes (%) (Auto) 13.9 % (9.0-44.0) Monocytes (%) (Auto) 11.5 % (0.0-8.0) Eosinophils (%) (Auto) 3.4 % (0.0-4.0) Basophils (%) (Auto) 0.5 % (0.0-2.0) Neutrophils # (Auto) 3.9 TH/MM3 (1.8-7.7) Lymphocytes # (Auto) 0.8 TH/MM3 (1.0-4.8) Monocytes # (Auto) 0.6 TH/MM3 (0-0.9) Eosinophils # (Auto) 0.2 TH/MM3 (0-0.4) Basophils # (Auto) 0.0 TH/MM3 (0-0.2) CBC Comment AUTO DIFF Differential Comment AUTO DIFF CONFIRMED Platelet Estimate LOW (NORMAL) Platelet Morphology Comment NORMAL (NORMAL) Ovalocytes 1+ (NORMAL) Sodium Level 141 MEQ/L (136-145) Potassium Level 3.6 MEQ/L (3.5-5.1) Chloride Level 104 MEQ/L (98-107) Carbon Dioxide Level 24.8 MEQ/L (21.0-32.0) Anion Gap 12 MEQ/L (5-15) Blood Urea Nitrogen 36 MG/DL (7-18) Creatinine 2.29 MG/DL (0.60-1.30) Estimat Glomerular Filtration 29 ML/MIN (>89) Rate Random Glucose 115 MG/DL (74-106) Calcium Level 8.1 MG/DL (8.5-10.1) Protein Corrected Calcium 8.2 MG/DL (8.5-10.1) Total Bilirubin 0.5 MG/DL (0.2-1.0) Aspartate Amino Transf 27 U/L (15-37) (AST/SGOT) Alanine Aminotransferase 37 U/L (12-78) (ALT/SGPT) Alkaline Phosphatase 170 U/L (45-117) Total Protein 7.1 GM/DL (6.4-8.2) Albumin 2.9 GM/DL (3.4-5.0) Test 08/02/16 08/02/16 08/03/16 08/03/16 07:45 19:01 02:42 03:44 Prothrombin Time 79.6 SEC 43.8 SEC (9.8-11.6) (9.8-11.6) Prothromb Time International 6.6 RATIO 3.7 RATIO Ratio Activated Partial 76.3 SEC Thromboplast Time (24.3-30.1) Sodium Level 138 MEQ/L 140 MEQ/L 139 MEQ/L (136-145) (136-145) (136-145) Potassium Level 3.6 MEQ/L 3.6 MEQ/L 3.5 MEQ/L (3.5-5.1) (3.5-5.1) (3.5-5.1) Chloride Level 105 MEQ/L 109 MEQ/L 106 MEQ/L (98-107) (98-107) (98-107) Carbon Dioxide Level 22.6 MEQ/L 21.7 MEQ/L 21.4 MEQ/L (21.0-32.0) (21.0-32.0) (21.0-32.0) Anion Gap 10 MEQ/L (5-15) 9 MEQ/L (5-15) 12 MEQ/L (5-15) Blood Urea Nitrogen 33 MG/DL (7-18) 30 MG/DL (7-18) 30 MG/DL (7-18) Creatinine 2.25 MG/DL 2.18 MG/DL 2.14 MG/DL (0.60-1.30) (0.60-1.30) (0.60-1.30) Estimat Glomerular Filtration 30 ML/MIN (>89) 31 ML/MIN (>89) 31 ML/MIN (>89) Rate Random Glucose 104 MG/DL 131 MG/DL 111 MG/DL (74-106) (74-106) (74-106) Calcium Level 8.3 MG/DL 8.4 MG/DL 8.2 MG/DL (8.5-10.1) (8.5-10.1) (8.5-10.1) Protein Corrected Calcium 8.3 MG/DL 8.4 MG/DL (8.5-10.1) (8.5-10.1) Total Protein 7.2 GM/DL 6.9 GM/DL (6.4-8.2) (6.4-8.2) Test 08/03/16 10:15 Sodium Level 141 MEQ/L (136-145) Potassium Level 3.5 MEQ/L (3.5-5.1) Chloride Level 108 MEQ/L (98-107) Carbon Dioxide Level 22.8 MEQ/L (21.0-32.0) Anion Gap 10 MEQ/L (5-15) Blood Urea Nitrogen 30 MG/DL (7-18) Creatinine 2.08 MG/DL (0.60-1.30) Estimat Glomerular Filtration 32 ML/MIN (>89) Rate Random Glucose 126 MG/DL (74-106) Calcium Level 8.4 MG/DL (8.5-10.1) . (Eli Guerrero) Result Diagram: 08/02/16 0500 08/03/16 1015 Microbiology Microbiology Date/Time Procedure Status Source Growth 08/01/16 09:45 Urine Culture - Final Complete Urine Clean Catch Silvina Tropicalis Proteus Mirabilis Procedures 07/31/16: Right IJ Vas-Cath placed. . (Eli Guerrero) Assessment and Plan Disease Oriented Problem List: (1) Hospital-acquired pneumonia (2) Acute and chronic respiratory failure (3) CHF exacerbation (4) Pulmonary hypertension (5) Anasarca (6) Cardiomyopathy (7) HTN (hypertension) (8) CKD (chronic kidney disease) stage 3, GFR 30-59 ml/min (9) Morbid obesity with BMI of 60.0-69.9, adult Symptom Scale: (1) Dyspnea 0-10 Scale: Unable to quantify (2) Malnutrition 0-10 Scale: Unable to quantify Comment: Risk for during acute hospitalization, related to BiPAP, invasive procedures altering oral intake. Albumin 2.5 initially. Pertinent Non-Medical Issues Psychosocial:Disabled for the past several years. Supported by 2 adult children. Legally . Has been in rehabilitation the past 4-5 months. Prior to that lived at home. Retired/disabled around 2009. 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 Spiritual: Faith Legal: Patient able to participate in decision-making, designated daughter Gail as healthcare surrogate on 08/01/16. Ethical issues impacting care: Important Contacts Daughter Gail Schneider [phone] Prognosis This patient was admitted for dyspnea. Has multiple chronic medical conditions. Reported to have multiple recent hospitalizations related to the same issues. Has elected DNR status. May be able to stabilize, treat current conditions however also very high risk for further complications/setbacks in decline which he may not survive if does not desire intubation/resuscitation. . Code Status: No Code Plan * Legal decision maker: Patient able to participate in decision-making, designated daughter Gail as healthcare surrogate on 08/01/16. * Goals: semi aggressive, short of resuscitation for now. Daughter and patient wished to proceed with ongoing aggressive interventions with the hope of stabilizing and improving patient however they also understand he remains high risk for further complications and clinical deterioration. They are open to ongoing discussions regarding goals, prognosis as clinical course evolves. * Phone call placed to patient's daughter, Gail Schneider, introducing myself as part of the palliative care team. Patient's daughter previously spoke to Maria Teresa Galindo, Palliative [facility] yesterday 08/02/16. Message left on the patient' s daughter's voicemail with my contact information. * CODE STATUS: DNR * SYMPTOMS: --Dyspnea- + HCAP, req. NRB mask. Ongoing dyspnea x weeks prior to presentation, now req. CVVHD for fluid --Malnutrition- limited PO intake due to O2 requirements, dyspnea, receiving TF via NGT. albumin 2.5 Taking some PO + tolerating TF currently --Pain- Possible causes of pain include invasive line, procedures, edema, immobility, bedbound status etc. Has PRN [place] 5mg, none utilized over the past 24 hours. Palliative care will continue to monitor PRN requirement and make recommendations as appropriate. * Palliative care will continue to follow during hospital course as condition evolves, to assist patient/decision-maker with understanding of medical conditions, weighing benefits/burdens of treatment options, for clarification of goals of treatment. Additionally will assist with any symptoms of palliative concern . (Eli Guerrero) Attestation To help prompt me to consider important information that might be impacting today's encounter and assessment, information from prior notes written by myself or my colleagues may have been "brought forward" into today's note. My signature on this note, however, is an attestation that I personally performed the exam, history, and/or decision-making noted today, and, unless otherwise indicated, the interactions with patient, family, and staff as well as the review of records all occurred today. I also attest that the listed assessment and stated plan reflect my best clinical judgment today based on the combination of historical information, prior notes, and today's exam/ interactions. When time spent is documented, it refers only to time spent today by the signer, or if indicated, combined time spent today by collaborating physician/nurse practitioner. . (Eli Guerrero) Collaborating MD Comments Chart reviewed. Case discussed with palliative care [facility]. Above [facility] note reviewed and I concur. . (Hans Casillas MD) Eli Guerrero Aug 03, 2016 14:53 Hans Casillas MD Sep 04, 2016 08:12
--- NOTE | 2016-08-03 17:30 | HHI.NPPN ---
Subjective History of Present Illness This patient is a 65-year-old male who gives a history of having acute renal insufficiency while admitted to [facility] last month. According to patient he was told that he had pneumonia and acute renal insufficiency. He received IV fluids according to the patient he developed edema which worsened post discharge. Initially the patient indicated to me that dialysis was not performed however I discussed his history with his daughter and she indicated that he was on dialysis temporarily in [place] and it was subsequently discontinued secondary to improved kidney function. Patient has no recollection of being told that he had a kidney condition prior to that admission. Patient indicates edema has worsened in the last week involving his scrotum. Denies using NSAIDs as an outpatient. No history of collagen vascular disease, nephrolithiasis, viral hepatitis. He also informed me that prior to his admission I can Donn he was ambulatory but subsequently was discharged to rehabilitation. Interval History Patient more alert no verbal complaints currently. Review of Systems Respiratory Lungs: SOB Cardiovascular Cardiac: Edema Objective Data Data 08/02/16 08/03/16 19:00 07:00 Intake Total 771 ml 1094 ml Output Total 2176 ml 4015 ml Balance -1405 ml -2921 ml Intake Oral 45 ml IV Total 371 ml 310 ml Tube Feeding 340 ml 679 ml Tube Irrigant 60 ml 60 ml Output Urine Total 50 ml 10 ml Hemodialysis 2126 ml 4005 ml # Bowel Movements 1 1 Vital Signs Date Time Temp Pulse Resp B/P Pulse Ox O2 Delivery O2 Flow Rate FiO2 08/03/16 16:00 98.2 95 22 99/59 95 08/03/16 12:00 98.2 100 22 89/59 96 08/03/16 08:00 98.3 95 21 95/64 96 08/03/16 07:38 94 Non-Rebreather 12.00 08/03/16 07:00 Bi-Pap 50 08/03/16 06:01 96 08/03/16 04:13 97.7 95 26 104/60 90 08/03/16 04:13 95 08/03/16 03:52 95 50 08/03/16 02:00 92 08/03/16 00:00 104 08/03/16 00:00 97.9 117 28 96/73 90 08/03/16 00:00 93 50 08/02/16 22:00 104 08/02/16 20:00 98.2 101 24 111/62 92 1/17/17 20:00 101 08/02/16 19:34 93 BiPAP 08/02/16 19:34 93 50 08/02/16 19:00 Bi-Pap 50 08/02/16 18:00 102 -: 08/02/16 0500 08/03/16 1015 Tubes & Lines: Vas-Cath Physical Exam General Appearance: No Acute Distress Pulmonary Resp Exam: Breath Sounds Equal, Diminished Breath Sounds Cardiology CV Exam: Regular, Normal Sinus Rhythm Gastrointestinal/Abdomen GI Exam: Distended Integumentary Skin Exam: Warm Extremeties Extremities Exam: Pitting Edema (3+ edema of extremities, edema scrotum. Edema dependent torso.), Dependent Edema Neurologic Neuro Exam: Alert, Awake, Oriented Psychiatric Psych Exam: Appropriate Responses Assessment/Plan Discussed Condition With: Patient, Daughter Problem List: (1) Anasarca Plan: CRRT discontinued and hopefully the patient will be able to tolerate hemodialysis tomorrow however this remains to be determined as his blood pressure is still marginal. I'm status has improved but still patient will require further significant fluid removal with dialysis. Hopefully the patient' s hemodynamic status will allow same. If unable to perform conventional dialysis will have to consider going back to CRRT tomorrow. Medications should be adjusted for the patient's estimated GFR if clinically indicated. Avoid agents with significant potential for nephrotoxicity possible including NSAIDs for analgesia, iodine contrast agents. Gadolinium is contraindicated if the GFR is below 30. (2) CKD (chronic kidney disease) stage 3, GFR 30-59 ml/min Plan: May be related to nephrosclerosis of hypertension and aging. Also the patient may be predisposed to development of focal segmental glomerulosclerosis secondary to morbid obesity. I suspect that the GFR calculated is underestimating severity of the patient's renal clearance and this patient may even have end-stage renal disease. (3) CHF exacerbation Plan: Plan of management as above. (4) Pulmonary hypertension Plan: Defer management of patient's pulmonary condition as well as sleep apnea to primary care physician. (5) Cardiomyopathy (6) HTN (hypertension) Plan: History of No Rowan MD Aug 03, 2016 17:30
[2016-08-04] VITALS (18 sets, daily range): BP systolic 91–127; BP diastolic 54–95; PULSE 81–109; RESP 12–27; TEMP 97–98.5; O2SAT 85–96
[2016-08-04] MEDS: INSULIN NovoLIN REGULAR SUPPLEMENTAL SCALE SQ SCH ×4 (01:30→19:08)
[2016-08-04] MEDS: RESP: ALBUTEROL 2.5 MG/IPRATROPIUM 0.5 MG NEB (SCH) NEB ×3 (03:30→12:16)
[2016-08-04] MEDS: CHLORHEXIDINE GLUCONATE 2 % 1 PACK (2 CLOTHS)(taper/protocol) TOP SCH (03:33)
[2016-08-04] MEDS: AMIODARONE INJ 450 MG in DEXTROSE 5% IN WATE(EXCEL) INJ 241 ML IV SCH ×2 (03:33)
[2016-08-04] MEDS: AZTREONAM INJ 1,000 MG in SODIUM CHLORIDE 0.9% INJ 100 ML IV SCH ×2 (03:33→11:23)
[2016-08-04 05:31] LABS: HEMATOCRIT 36.8 % (39.0-51.0); MEAN CELL VOLUME 88.2 FL (80.0-100.0); MEAN CORPUSCULAR HGB CONC 30.6 % (32.0-36.0); PLATELET COUNT 91 TH/MM3 (150-450); RED BLOOD COUNT 4.17 MIL/MM3 (4.50-5.90); RED CELL DISTRIBUTION WIDTH 18.5 % (11.6-17.2); WHITE BLOOD COUNT 10.3 TH/MM3 (4.0-11.0)
[2016-08-04 05:45] LABS: INTERNATIONAL NORMALIZED RATIO 2.8 RATIO; PROTHROMBIN TIME - PATIENT 32.8 SEC (9.8-11.6)
[2016-08-04] MEDS: LEVOTHYROXINE SODIUM 25 MCG TAB PO SCH (05:51)
[2016-08-04 05:58] LABS: ALKALINE PHOSPHATASE 242 U/L (45-117); ALT (GPT) 83 U/L (12-78); ANION GAP 11 MEQ/L (5-15); AST (GOT) 114 U/L (15-37); BLOOD UREA NITROGEN 35 MG/DL (7-18); CHLORIDE 107 MEQ/L (98-107); GLOMERULAR FILTRATION RATE 24 ML/MIN (>89); POTASSIUM 3.8 MEQ/L (3.5-5.1); SODIUM (NA) 140 MEQ/L (136-145); TOTAL BILIRUBIN ADULT 0.5 MG/DL (0.2-1.0)
[2016-08-04 06:06] LABS: HEMO FLAGS AUTO DIFF
[2016-08-04] MEDS: FLUTICASONE PROPIONATE 50 MCG/ACT 16 GM NASAL SPRAY NASAL SCH ×2 (08:36→19:55)
[2016-08-04] MEDS: MUPIROCIN 2% OINT 1 APPLIC/GM SYR NASAL SCH ×2 (08:36→19:54)
[2016-08-04] MEDS: SODIUM CHLORIDE 0.9% FLUSH 5 ML FLUSH IV FLUSH SCH ×2 (08:36→19:54)
[2016-08-04] MEDS: FLUCONAZOLE 200 MG TAB PO SCH (08:37)
[2016-08-04] MEDS: DOCUSATE SODIUM 100 MG CAP PO SCH ×2 (08:37→19:55)
[2016-08-04 09:32] LABS: BANDS 14 % (0-6); CORRECTED NUCLEATED RBC 7 /100 WBC (0-0); EOSINOPHILS 1 % (0-4); MYELOCYTES 5 % (0-0); NEUTROPHIL # MANUAL DIFF 6.9 TH/MM3 (1.8-7.7); POLYS (SEG NEUTROPHILS) 47 % (16-70); PROMYELOCYTES 1 % (0-0); WBC DIFF SAMPLE 100
[2016-08-04 09:35] LABS: KERATOCYTES OCC (NORMAL); OVALOCYTES 1+ (NORMAL); PLATELET ESTIMATE SMEAR LOW (NORMAL); PLATELET MORPHOLOGY NORMAL (NORMAL); SCAN/DIFF FINAL DIFF MANUAL
--- NOTE | 2016-08-04 10:55 | HHI.HCPN ---
Reason for visit a. To assist with evaluation and management of symptoms including: dyspnea, malnutrition b. To assist medical decision maker(s) with: better understanding of current medical conditions; weighing benefits/burdens of medical treatment options; making medical treatment decisions. . (Maria Teresa Galindo) Subjective/Interval History Notified by RN pt daughter coming today, he had prev expressed some anxiety to RN. Pt remain in ICU on/off of Bipap and NRB mask. Some hypotension, bp 80-90s systolic. CBC stable, unremarkable. Chemistry stable, cont to have elevated BUN/ creatinine. Planned for possible hemodialysis today, certain that he may not tolerate hemodialysis due to hypotension may require resumption of CVVHD. Liver function trending up AST 114, ALT 83, alkaline phosphatase 242. No new imaging. Afebrile. Patient seen in room no visitors present. He is on BiPAP currently. Able to nod to some questions though really unable to verbalize due to BiPAP unable to remove due to O2 sats only in the low 90s at time of my arrival. Gently explore with him his hospital course, current conditions, no significant improvement though really no dramatic decline either, patient could continue on current treatment course though still not clear that he will get back to the functional level he was a month or so before current illness began. We could continue ongoing aggressive treatments so he would likely be in the hospital for a prolonged time and require halfway placement at discharge. Alternatively explore that if he is not improving and desires transition to comfort oriented treatments only then that would be reasonable and appropriate as well if that was his choice. He nods to some questions though communication is limited at this point. Indicates some pain to his groin area external, skin , not internal pain--explore nursing has been applying topical cream-- hemodynamically he is unable to tolerate strong pain medication at this time. Following exam call to daughter Gail Schneider. Exploration of current conditions status etc., review our conversations earlier this week. She understands underlying condition, prognosis. She hopes to have ongoing discussions with the patient regarding his goals if he wishes to continue with aggressive course without clear indication that he will regain functional ability versus transition to comfort focus. She will be here today around noon , will plan to follow up with her then. . Family/friend interactions *mtg w daughter planned today for 1200 noon. Met with daughter and her son at length. Extensive review of hospital course, current treatments, and little clinical improvement thus far. She is going to talk more with the patient about his wishes going forward. She does not think he would want to continue with aggressive interventions without clear signs of improvement in recovery back to a somewhat functional status. She is going to talk more with patient and get back with me possibly later today. ------- Later notified by nursing daughter at bedside has spoken with patient they would like to transition to comfort focus. I again met with patient and his daughter at bedside. Patient is somewhat lethargic though intermittently awakens and participates. He does acknowledge prolonged hospitalization, and that he does not want further aggressive interventions. He continues to nod off to sleep. Daughter tells me that he is "done", and does not want to undergo any further aggressive interventions and instead wants to transition to comfort focus with hospice. Review with her hospice role, philosophy, services provided. Anticipatory guidance of patient likely trajectory provided. Review of treatments that would be discontinued (no further dialysis, continuous BiPAP , cardiac drips etc.), comfort treatments which would be added/left in place. She asked how much time patient may have left advise it is difficult to specifically predict however looking at ranges/underlying conditions, current status he is likely in the range of days at the most. They would like to proceed with hospice enrollment and possible care center placement in [facility] as soon as able, as daughter and requests a family are driving from [place] to get here to hospital. (Maria Teresa Galindo) Advance Directives Health Care Surrogate: Copy in medical record (completed today 08/01) Durable Power of Industrial Analyst: Copy in medical record (does not include medical decision-making) (Maria Teresa Galindo) Advance Directive Specifics Date completed: 08/01/16 Health Care Surrogate(s): Daughter Gail Schneider Significant change in goals: *1700 elected to transition to comfort focus only, hospice consultation order entered (Maria Teresa Galindo) Objective Vital Signs Date Time Temp Pulse Resp B/P Pulse Ox O2 Delivery O2 Flow Rate FiO2 08/04/16 08:00 88 08/04/16 08:00 98.5 85 24 95/60 85 08/04/16 07:34 94 Partial Rebreather 10.00 08/04/16 07:00 Bi-Pap 50 08/04/16 06:00 89 08/04/16 04:13 95 50 08/04/16 04:00 97.7 87 12 91/54 95 08/04/16 04:00 87 08/04/16 02:00 90 08/04/16 01:07 95 50 08/04/16 00:00 98.1 90 12 103/62 94 08/04/16 00:00 90 08/03/16 22:00 94 50 08/03/16 22:00 93 08/03/16 21:30 Bi-Pap 50 08/03/16 20:00 98.4 83 22 88/54 92 08/03/16 20:00 83 08/03/16 19:48 95 50 08/03/16 19:00 Partial Non-Rebreather 13.00 08/03/16 16:00 98.2 95 22 99/59 95 08/03/16 12:00 98.2 100 22 89/59 96 Intake & Output 08/04/16 08/04/16 07:00 19:00 Intake Total 1308 ml Output Total 1853 ml Balance -545 ml Intake Oral 45 ml IV Total 470 ml Tube Feeding 733 ml Tube Irrigant 60 ml Output Urine Total 20 ml Hemodialysis 1833 ml # Bowel Movements 1 Physical Exam CONSTITUTIONAL/GENERAL: This is a morbidly obese pt, chronically ill appearing, on BiPAP in ICU TUBES/LINES/DRAINS: Dialysis catheter right IJ, PIVs LUE, Hale catheter, NG tube SKIN: Venous stasis wounds to BLE. Chronic vascular changes BUE, multiple areas of ecchymosis upper and lower extremities. Both earlobes dusky, purple in coloration. Dressing to right doss clean and dry. Skin warm. CARDIOVASCULAR: Irregular rate and rhythm. 3+ generalized edema, pitting to lower extremities. Pedal pulses faintly palpable-hypotensive--BP 80s90s systolic. RESPIRATORY/CHEST: Symmetric, mildly labored respirations on BiPAP . Decreased air movement throughout more so to the left. Coarse scattered rhonchi. GASTROINTESTINAL: Abdomen soft, obese, non-tender. No guarding. Bowel sounds present. GENITOURINARY: Without palpable bladder distension--topically tender to groin/. Area. Hale catheter in place clear dark yellow urine. MUSCULOSKELETAL: Extremities with 4+ edema. NEUROLOGICAL: Patient lethargic on examination, arouses for exam nods to some question though very limited communication due to BiPAP mask. Unable to assess orientation. Moves all 4 extremities generalized weakness. PSYCHIATRIC: Difficult to assess secondary to lethargy. No obvious anxiety/ depression. . (Maria Teresa Galindo) Diagnostic Tests Laboratory Laboratory Tests Test 08/01/16 08/01/16 08/01/16 08/01/16 11:30 14:00 18:00 18:03 Activated Partial 32.9 SEC 98.9 SEC 99.1 SEC Thromboplast Time (24.3-30.1) (24.3-30.1) (24.3-30.1) Sodium Level 139 MEQ/L (136-145) Potassium Level 3.3 MEQ/L (3.5-5.1) Chloride Level 102 MEQ/L (98-107) Carbon Dioxide Level 26.2 MEQ/L (21.0-32.0) Anion Gap 11 MEQ/L (5-15) Blood Urea Nitrogen 37 MG/DL (7-18) Creatinine 2.42 MG/DL (0.60-1.30) Estimat Glomerular Filtration 27 ML/MIN (>89) Rate Random Glucose 122 MG/DL (74-106) Calcium Level 8.1 MG/DL (8.5-10.1) Protein Corrected Calcium 8.5 MG/DL (8.5-10.1) Total Bilirubin 0.5 MG/DL (0.2-1.0) Direct Bilirubin 0.2 MG/DL (0.0-0.2) Indirect Bilirubin 0.3 MG/DL (0.0-0.8) Aspartate Amino Transf 31 U/L (15-37) (AST/SGOT) Alanine Aminotransferase 38 U/L (12-78) (ALT/SGPT) Alkaline Phosphatase 162 U/L (45-117) Total Protein 6.4 GM/DL (6.4-8.2) Albumin 2.7 GM/DL (3.4-5.0) Test 08/01/16 08/01/16 08/02/16 08/02/16 20:33 22:55 02:25 05:00 Nasal Screen MRSA (PCR) POSITIVE (NEGATIVE) Activated Partial 95.8 SEC 86.7 SEC Thromboplast Time (24.3-30.1) (24.3-30.1) White Blood Count 5.5 TH/MM3 (4.0-11.0) Red Blood Count 4.42 MIL/MM3 (4.50-5.90) Hemoglobin 11.5 GM/DL (13.0-17.0) Hematocrit 38.3 % (39.0-51.0) Mean Corpuscular Volume 86.7 FL (80.0-100.0) Mean Corpuscular Hemoglobin 26.0 PG (27.0-34.0) Mean Corpuscular Hemoglobin 29.9 % Concent (32.0-36.0) Red Cell Distribution Width 18.3 % (11.6-17.2) Platelet Count 71 TH/MM3 (150-450) Mean Platelet Volume 8.7 FL (7.0-11.0) Neutrophils (%) (Auto) 70.7 % (16.0-70.0) Lymphocytes (%) (Auto) 13.9 % (9.0-44.0) Monocytes (%) (Auto) 11.5 % (0.0-8.0) Eosinophils (%) (Auto) 3.4 % (0.0-4.0) Basophils (%) (Auto) 0.5 % (0.0-2.0) Neutrophils # (Auto) 3.9 TH/MM3 (1.8-7.7) Lymphocytes # (Auto) 0.8 TH/MM3 (1.0-4.8) Monocytes # (Auto) 0.6 TH/MM3 (0-0.9) Eosinophils # (Auto) 0.2 TH/MM3 (0-0.4) Basophils # (Auto) 0.0 TH/MM3 (0-0.2) CBC Comment AUTO DIFF Differential Comment AUTO DIFF CONFIRMED Platelet Estimate LOW (NORMAL) Platelet Morphology Comment NORMAL (NORMAL) Ovalocytes 1+ (NORMAL) Sodium Level 141 MEQ/L (136-145) Potassium Level 3.6 MEQ/L (3.5-5.1) Chloride Level 104 MEQ/L (98-107) Carbon Dioxide Level 24.8 MEQ/L (21.0-32.0) Anion Gap 12 MEQ/L (5-15) Blood Urea Nitrogen 36 MG/DL (7-18) Creatinine 2.29 MG/DL (0.60-1.30) Estimat Glomerular Filtration 29 ML/MIN (>89) Rate Random Glucose 115 MG/DL (74-106) Calcium Level 8.1 MG/DL (8.5-10.1) Protein Corrected Calcium 8.2 MG/DL (8.5-10.1) Total Bilirubin 0.5 MG/DL (0.2-1.0) Aspartate Amino Transf 27 U/L (15-37) (AST/SGOT) Alanine Aminotransferase 37 U/L (12-78) (ALT/SGPT) Alkaline Phosphatase 170 U/L (45-117) Total Protein 7.1 GM/DL (6.4-8.2) Albumin 2.9 GM/DL (3.4-5.0) Test 08/02/16 08/02/16 08/03/16 08/03/16 07:45 19:01 02:42 03:44 Prothrombin Time 79.6 SEC 43.8 SEC (9.8-11.6) (9.8-11.6) Prothromb Time International 6.6 RATIO 3.7 RATIO Ratio Activated Partial 76.3 SEC Thromboplast Time (24.3-30.1) Sodium Level 138 MEQ/L 140 MEQ/L 139 MEQ/L (136-145) (136-145) (136-145) Potassium Level 3.6 MEQ/L 3.6 MEQ/L 3.5 MEQ/L (3.5-5.1) (3.5-5.1) (3.5-5.1) Chloride Level 105 MEQ/L 109 MEQ/L 106 MEQ/L (98-107) (98-107) (98-107) Carbon Dioxide Level 22.6 MEQ/L 21.7 MEQ/L 21.4 MEQ/L (21.0-32.0) (21.0-32.0) (21.0-32.0) Anion Gap 10 MEQ/L (5-15) 9 MEQ/L (5-15) 12 MEQ/L (5-15) Blood Urea Nitrogen 33 MG/DL (7-18) 30 MG/DL (7-18) 30 MG/DL (7-18) Creatinine 2.25 MG/DL 2.18 MG/DL 2.14 MG/DL (0.60-1.30) (0.60-1.30) (0.60-1.30) Estimat Glomerular Filtration 30 ML/MIN (>89) 31 ML/MIN (>89) 31 ML/MIN (>89) Rate Random Glucose 104 MG/DL 131 MG/DL 111 MG/DL (74-106) (74-106) (74-106) Calcium Level 8.3 MG/DL 8.4 MG/DL 8.2 MG/DL (8.5-10.1) (8.5-10.1) (8.5-10.1) Protein Corrected Calcium 8.3 MG/DL 8.4 MG/DL (8.5-10.1) (8.5-10.1) Total Protein 7.2 GM/DL 6.9 GM/DL (6.4-8.2) (6.4-8.2) Test 08/03/16 08/04/16 10:15 03:58 Sodium Level 141 MEQ/L 140 MEQ/L (136-145) (136-145) Potassium Level 3.5 MEQ/L 3.8 MEQ/L (3.5-5.1) (3.5-5.1) Chloride Level 108 MEQ/L 107 MEQ/L (98-107) (98-107) Carbon Dioxide Level 22.8 MEQ/L 22.0 MEQ/L (21.0-32.0) (21.0-32.0) Anion Gap 10 MEQ/L (5-15) 11 MEQ/L (5-15) Blood Urea Nitrogen 30 MG/DL (7-18) 35 MG/DL (7-18) Creatinine 2.08 MG/DL 2.71 MG/DL (0.60-1.30) (0.60-1.30) Estimat Glomerular Filtration 32 ML/MIN (>89) 24 ML/MIN (>89) Rate Random Glucose 126 MG/DL 107 MG/DL (74-106) (74-106) Calcium Level 8.4 MG/DL 8.9 MG/DL (8.5-10.1) (8.5-10.1) White Blood Count 10.3 TH/MM3 (4.0-11.0) Red Blood Count 4.17 MIL/MM3 (4.50-5.90) Hemoglobin 11.3 GM/DL (13.0-17.0) Hematocrit 36.8 % (39.0-51.0) Mean Corpuscular Volume 88.2 FL (80.0-100.0) Mean Corpuscular Hemoglobin 27.0 PG (27.0-34.0) Mean Corpuscular Hemoglobin 30.6 % Concent (32.0-36.0) Red Cell Distribution Width 18.5 % (11.6-17.2) Platelet Count 91 TH/MM3 (150-450) Mean Platelet Volume 9.0 FL (7.0-11.0) Neutrophils (%) (Auto) % (16.0-70.0) Lymphocytes (%) (Auto) % (9.0-44.0) Monocytes (%) (Auto) % (0.0-8.0) Eosinophils (%) (Auto) % (0.0-4.0) Basophils (%) (Auto) % (0.0-2.0) Neutrophils # (Auto) TH/MM3 (1.8-7.7) Lymphocytes # (Auto) TH/MM3 (1.0-4.8) Monocytes # (Auto) TH/MM3 (0-0.9) Eosinophils # (Auto) TH/MM3 (0-0.4) Basophils # (Auto) TH/MM3 (0-0.2) CBC Comment AUTO DIFF Differential Total Cells 100 Counted Neutrophils % (Manual) 47 % (16-70) Band Neutrophils % 14 % (0-6) Lymphocytes % 22 % (9-44) Monocytes % 10 % (0-8) Eosinophils % 1 % (0-4) Neutrophils # (Manual) 6.9 TH/MM3 (1.8-7.7) Myelocytes 5 % (0-0) Promyelocytes 1 % (0-0) Nucleated Red Blood Cells 7 /100 WBC (0-0) Differential Comment FINAL DIFF MANUAL Platelet Estimate LOW (NORMAL) Platelet Morphology Comment NORMAL (NORMAL) Polychromasia 2.0 % (0.0-1.9) Ovalocytes 1+ (NORMAL) Keratocytes OCC (NORMAL) Prothrombin Time 32.8 SEC (9.8-11.6) Prothromb Time International 2.8 RATIO Ratio Total Bilirubin 0.5 MG/DL (0.2-1.0) Aspartate Amino Transf 114 U/L (15-37) (AST/SGOT) Alanine Aminotransferase 83 U/L (12-78) (ALT/SGPT) Alkaline Phosphatase 242 U/L (45-117) Total Protein 6.9 GM/DL (6.4-8.2) Albumin 2.9 GM/DL (3.4-5.0) (Maria Teresa Galindo) Result Diagram: 08/04/16 0358 08/04/16 0358 Imaging Last Impressions Chest X-Ray 07/31/16 0000 Signed Impressions: Service Date/Time: Sunday, July 31, 2016 11:29 - CONCLUSION: Vascath in good position. No evidence of a pneumothorax. Ruiz Paniagua MD Renal Ultrasound 07/26/16 0000 Signed Impressions: Service Date/Time: Tuesday, July 26, 2016 11:33 - CONCLUSION: Limited evaluation of the kidneys secondary to patient body habitus and nonvisualization of the left kidney. The right kidney cortex appears mildly thinned and increased in echotexture which may reflect chronic medical renal disease. No evidence of hydronephrosis. Farzaneh White MD Chest CT 07/21/16 1428 Signed Impressions: Service Date/Time: July 15:15 - CONCLUSION: 1. Dense consolidation of the left lower lobe. 2. Small bilateral effusions. 3. 3.0 x 1.9 cm pleural-based nodule on the left. This is indeterminate by CT imaging. No hilar or mediastinal adenopathy is seen. 4. There is fluid in the left upper quadrant surrounding the spleen. The spleen appears mildly enlarged. 5. Advanced cardiomegaly. Girma Metzger MD Procedures 07/31/16: Right IJ Vas-Cath placed. . (Maria Teresa Galindo) Assessment and Plan Disease Oriented Problem List: (1) Hospital-acquired pneumonia (2) Acute and chronic respiratory failure (3) Pulmonary hypertension (4) Anasarca (5) Cardiomyopathy (6) HTN (hypertension) (7) CKD (chronic kidney disease) stage 3, GFR 30-59 ml/min (8) Morbid obesity with BMI of 60.0-69.9, adult Symptom Scale: (1) Dyspnea 0-10 Scale: Unable to quantify (2) Malnutrition 0-10 Scale: Unable to quantify Comment: Risk for during acute hospitalization, related to BiPAP, invasive procedures altering oral intake. Albumin 2.5 initially. Pertinent Non-Medical Issues Psychosocial:Disabled for the past several years. Supported by 2 adult children. Legally . Has been in rehabilitation the past 4-5 months. Prior to that lived at home. Retired/disabled around 2009. 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 Spiritual: Confucianist Legal: Patient able to participate in decision-making, designated daughter Gail as healthcare surrogate on 08/01/16. Ethical issues impacting care: Important Contacts Zina Schneider [phone] Prognosis This patient was admitted for dyspnea. Has multiple chronic medical conditions. Reported to have multiple recent hospitalizations related to the same issues. Has elected DNR status. May be able to stabilize, treat current conditions however also very high risk for further complications/setbacks in decline which he may not survive if does not desire intubation/resuscitation. . Code Status: No Code Plan * Legal decision maker: Patient able to participate in decision-making, designated daughter Gail as healthcare surrogate on 08/01/16. * Goals: --Evolving throughout the day. Initially aggressive pending further meetings with daughter. Later in the afternoon met with daughter again, following discussions with patient they are electing to transition to hospice, comfort oriented treatment only. Anticipatory guidance has been provided. Hospice consultation entered, called to hospice admissions as they are requesting [facility] placement. Discussion with primary nurse, critical care attending. Comfort orders to be entered by palliative Alessio * CODE STATUS: DNR * SYMPTOMS: --Dyspnea- + HCAP, req. NRB mask. Ongoing dyspnea x weeks prior to presentation, req. CVVHD for fluid removal, pending hemodialysis today--- transition to comfort focus only; use BiPAP prn as patient desires (formerly used at home at night for NINO) prn lorazepam entered for anxiety/dyspnea --Malnutrition- limited PO intake due to O2 requirements, dyspnea, receiving TF via NGT. albumin 2.5 Taking some PO + tolerating TF currently --NG tube to be discontinued with comfort measures only--oral diet as tolerated --Pain- Possible causes of pain include invasive line, procedures, edema, immobility, bedbound status etc. Has PRN [place] 5mg, none utilized over the past 24 hours. Having some topical pain to the pain or he/groin area--unable to give systemic opiates concern over hypotension currently 80s90 systolic. -- --> Transition to comfort focused treatment only, prn hydromorphone entered for pain. Additionally prn lorazepam entered for anxiety/dyspnea. * Palliative care will continue to follow during hospital course as condition evolves, to assist patient/decision-maker with understanding of medical conditions, weighing benefits/burdens of treatment options, for clarification of goals of treatment. Additionally will assist with any symptoms of palliative concern . (Maria Teresa Galindo) Time Spent Total Floor Time (mins): 45 >50% Counseling/Coord of Care: Yes (d/w Dr Jaimes, RN, palliative M.D.) (Maria Teresa Galindo) Attestation To help prompt me to consider important information that might be impacting today's encounter and assessment, information from prior notes written by myself or my colleagues may have been "brought forward" into today's note. My signature on this note, however, is an attestation that I personally performed the exam, history, and/or decision-making noted today, and, unless otherwise indicated, the interactions with patient, family, and staff as well as the review of records all occurred today. I also attest that the listed assessment and stated plan reflect my best clinical judgment today based on the combination of historical information, prior notes, and today's exam/ interactions. When time spent is documented, it refers only to time spent today by the signer, or if indicated, combined time spent today by collaborating physician/nurse practitioner. (Maria Teresa Galindo) Collaborating MD Comments Chart reviewed. Case discussed with palliative care MOTORCYCLE TESTER. Above MOTORCYCLE TESTER note reviewed and I concur. . (Hans Casillas MD) Maria Teresa Galindo Aug 04, 2016 10:55 Hans Casillas MD Sep 04, 2016 07:52
[2016-08-04] MEDS: LACTATED RINGER'S 1000 ML IV SCH (12:30)
[2016-08-04] MEDS ORDERED: GELATIN 12 MM/7 MM FOAM TOP PRN (14:00)
[2016-08-04] MEDS ORDERED: ALBUMIN HUMAN 25% 25 GM/100 ML BAGP IV PRN (14:00)
[2016-08-04] MEDS ORDERED: HEPARIN SODIUM - IV 10,000 UNITS/10 ML VIAL PRN (14:00)
[2016-08-04] MEDS ORDERED: GENTAMICIN SULFATE (DIALYSIS USE ONLY) 20 MG/2 ML VIAL IV PRN (14:00)
[2016-08-04] MEDS ORDERED: ONDANSETRON HCL 4 MG/2 ML VIAL IV PRN (14:00)
[2016-08-04] MEDS ORDERED: diphenhydrAMINE HCL 25 MG CAP PO PRN (14:00)
[2016-08-04] MEDS ORDERED: SODIUM CHLOR 0.9% 1000 ML INJ 1,000 ML IV PRN ×3 (14:00)
[2016-08-04] MEDS ORDERED: NITROGLYCERIN 0.4 MG SL 25 TABS/BTL SL PRN (14:00)
[2016-08-04] MEDS ORDERED: ACETAMINOPHEN 325 MG TAB PO PRN (14:00)
[2016-08-04] MEDS ORDERED: SODIUM CHLORIDE 0.9% FLUSH 5 ML FLUSH IVF PRN (14:00)
[2016-08-04] MEDS ORDERED: MANNITOL 12.5 GM/50 ML VIAL IV PRN (14:00)
[2016-08-04] MEDS ORDERED: cloNIDine HCL 0.1 MG TAB PO PRN (14:00)
--- NOTE | 2016-08-04 16:14 | HHI.CCPN ---
Subjective Remarks/Hospital Course I was consulted by Dr. Woo for a patient transfer to the ICU for a bumex infusion. In brief, this is a 65yM with long medical history, including CAD with stents, atrial fibrillation on Coumadin, CHF, HTN, CKD stage III, NINO on BiPAP at night , chronic respiratory failure on home O2, who initially presented with hypoxia, thought to be HCAP, CHF exacerbation, and new acute on chronic kidney injury. I discussed the case with Dr. Woo and nephrology feels that the next step in management of the patient is to transition to a bumex infusion prior to instituting possible renal replacement therapy. Thus, ICU admission is required for continuous bumex infusion. I have briefly evaluated the patient and my pertinent findings are: morbidly obese gentleman lying in bed on BiPAP, fio2 50%, /. somnolent but arousable. Mallampatti class IV, short thyromental distance, large neck circumference. distant breath sounds and muffled cardiac sounds due to morbid obesity, but clear to auscultation and cardiac sounds without overt appreciable murmurs. he is not tachypneic and not in distress. K 3.5, serum bicarb 27. CXR demonstrates dense LLL consolidation. I agree with Dr. Woo that the patient meets ICU criteria for continuous bumex infusion. I agree with the anticipated plan of bumex infusion with intermittent prn BiPAP (home BiPAP use), abx, and oxygen as needed. In my brief review of the medical record, I agree with nephrology that there is no current indication for emergent renal replacement therapy. I did talk with Dr. Woo that given his echo findings of right ventricular dysfunction and severe pulmonary hypertension with NINO, he is likely to have early cor pulmonale, and I would recommend being aggressive with early renal replacement therapy if no improvement with bumex infusion. Per the documentation, the patient is a DNR, and Dr. Woo is re-confirming whether or not he would want to be DNI or intubated. He would be an anticipated difficult mask ventilation and difficult intubation. 07/31 Patient is on partial non rebreather, renal function worse today with Cr: 3.27 from 2.76 patient to start CVVHD per renal. 08/01 Patient was on BIPAP overnight 06/20 with 40% FIO2. More awake and alert today. CVVHD started yesterday however it was clotted off overnight. 08/02: On partial rebreather, remains on CVVHD. Wishes to eat. 08/03: On BiPAP overnight. Switching to partial rebreather in the morning. Remains on CRRT. 5 L negative since yesterday. 08/04: On BiPAP overnight. Partial rebreather this morning. Objective Vital Signs Date Time Temp Pulse Resp B/P Pulse Ox O2 Delivery O2 Flow Rate FiO2 08/04/16 14:00 85 08/04/16 12:17 94 50 08/04/16 12:00 97.4 27 110/72 08/04/16 07:34 Partial Rebreather 10.00 Intake and Output 08/03/16 08/03/16 08/04/16 08:00 16:00 00:00 Intake Total 479 ml 930 ml 686 ml Output Total 1833 ml 0 ml 15 ml Balance -1354 ml 930 ml 671 ml Result Diagram: 08/04/16 0358 08/04/16 0358 Imaging Last Impressions Chest X-Ray 07/31/16 0000 Signed Impressions: Service Date/Time: Sunday, July 31, 2016 11:29 - CONCLUSION: Vascath in good position. No evidence of a pneumothorax. Ruiz Paniagua MD Renal Ultrasound 07/26/16 0000 Signed Impressions: Service Date/Time: Tuesday, July 26, 2016 11:33 - CONCLUSION: Limited evaluation of the kidneys secondary to patient body habitus and nonvisualization of the left kidney. The right kidney cortex appears mildly thinned and increased in echotexture which may reflect chronic medical renal disease. No evidence of hydronephrosis. Farzaneh White MD Chest CT 07/21/16 1428 Signed Impressions: Service Date/Time: July 15:15 - CONCLUSION: 1. Dense consolidation of the left lower lobe. 2. Small bilateral effusions. 3. 3.0 x 1.9 cm pleural-based nodule on the left. This is indeterminate by CT imaging. No hilar or mediastinal adenopathy is seen. 4. There is fluid in the left upper quadrant surrounding the spleen. The spleen appears mildly enlarged. 5. Advanced cardiomegaly. Girma Metzger MD Objective Remarks GENERAL: Patient is 65 yo male, lying in bed in mild resp distress on partial rebreather SKIN: Warm and dry. HEAD: Normocephalic. EYES: No scleral icterus. No injection or drainage. NECK: Supple, trachea midline. No JVD or lymphadenopathy. CARDIOVASCULAR: Tachycardic without murmurs, gallops, or rubs. RESPIRATORY: Breath sounds equal bilaterally. No accessory muscle use. GASTROINTESTINAL: Abdomen soft, non-tender, nondistended. MUSCULOSKELETAL: No cyanosis, + edema. Neuro: AAO x3 Procedures None. A/P Assessment and Plan 1Acute resp failure 2) Acute on chronic renal failure 3) CHF/Cardiomyopathy 4)Mod-severe pulm HTN with PAP 75mmHg 5)CAD 6)Afib on Coumadin 7)Hx HTN 8)Anemia, thrombocytopenia 9)Hypothyroidism 10)Morbid obesity, NINO 11) UTI Plan Neuro: Awake, avoid sedatives Pulm: Wean down oxygen as jonel keep sat >92% Bronchodilators, NIPPV PRN during day and nocturnally qhs for NINO CV:Monitor HR and BP keep MAP>65mmHg. Echo showed EF 45-50%, PAP 75mmHg Fluid removal with CVVHD / Renal: Monitor renal function, I/O's, avoid nephrotoxins Renal Dr.. Dunn- on CVVHD per renal for fluid removal. GI: On PO diet ID: Started Rocephin IV, diflucan PO on 08/03 for UTI with jasbir/ proteus. Heme: Monitor CBC. On coumadin (held due to elevated PT/INR). On argatroban for CVVHD. Endo: SSI if needed for glycemic control GI prophylaxis DVT prophylaxis - Coumadin, Coumadin on hold for thrombocytopenia/ elevated INR. Lines: Right IJ vascath placed 07/31, peripheral IV's Palliative care following to assist with deciding goals of care level 3 Vargas Jaimes MD Aug 04, 2016 16:14
[2016-08-04] MEDS ORDERED: LORazepam 2 MG/ML VIAL IV PUSH PRN ×2 (17:15)
[2016-08-04] MEDS ORDERED: HYDROmorphone HCL PF 1 MG/ML VIAL IV PUSH PRN (17:15)
[2016-08-04] MEDS ORDERED: HYOSCYAMINE 0.5 MG/ML AMP IVP PRN (17:30)
--- NOTE | 2016-08-04 17:49 | HHI.NPPN ---
Subjective History of Present Illness This patient is a 65-year-old male who gives a history of having acute renal insufficiency while admitted to [facility] last month. According to patient he was told that he had pneumonia and acute renal insufficiency. He received IV fluids according to the patient he developed edema which worsened post discharge. Initially the patient indicated to me that dialysis was not performed however I discussed his history with his daughter and she indicated that he was on dialysis temporarily in [place] and it was subsequently discontinued secondary to improved kidney function. Patient has no recollection of being told that he had a kidney condition prior to that admission. Patient indicates edema has worsened in the last week involving his scrotum. Denies using NSAIDs as an outpatient. No history of collagen vascular disease, nephrolithiasis, viral hepatitis. He also informed me that prior to his admission I can June he was ambulatory but subsequently was discharged to rehabilitation. Interval History CRRT was discontinued yesterday as he continued to clot machine. PTT elevated so could not use anticoagulation. HD this AM and tolerated treatment. UF of 3500mL. The patient's family is present. (Audra Vasquez) Review of Systems Respiratory Lungs: SOB (Audra Vasquez) Cardiovascular Cardiac: Edema (Audra Vasquez) Objective Data Data 08/03/16 08/04/16 19:00 07:00 Intake Total 930 ml 1308 ml Output Total 0 ml 1853 ml Balance 930 ml -545 ml Intake Oral 240 ml 45 ml IV Total 240 ml 470 ml Tube Feeding 400 ml 733 ml Tube Irrigant 50 ml 60 ml Output Urine Total 0 ml 20 ml Hemodialysis 1833 ml # Bowel Movements 0 1 Vital Signs Date Time Temp Pulse Resp B/P Pulse Ox O2 Delivery O2 Flow Rate FiO2 08/04/16 14:00 85 08/04/16 12:17 94 50 08/04/16 12:00 87 08/04/16 12:00 97.4 87 27 110/72 92 08/04/16 10:00 91 08/04/16 08:00 88 08/04/16 08:00 98.5 85 24 95/60 85 08/04/16 07:34 94 Partial Rebreather 10.00 08/04/16 07:00 Bi-Pap 50 08/04/16 06:00 89 08/04/16 04:13 95 50 08/04/16 04:00 97.7 87 12 91/54 95 08/04/16 04:00 87 08/04/16 02:00 90 08/04/16 01:07 95 50 08/04/16 00:00 98.1 90 12 103/62 94 08/04/16 00:00 90 08/03/16 22:00 94 50 08/03/16 22:00 93 08/03/16 21:30 Bi-Pap 50 08/03/16 20:00 98.4 83 22 88/54 92 08/03/16 20:00 83 08/03/16 19:48 95 50 08/03/16 19:00 Partial Non-Rebreather 13.00 (Audra Vasquez) -: 08/04/1635708/04/16357 Tubes & Lines: Vas-Cath Medication Review Current Medications Medications (Trade) Dose Ordered Sig/Olivia Route Start Time Stop Time Status Last Admin (Colace) 100 mg BID PO 07/21/16 21:00 08/04/16 08:37 (Synthroid) 25 mcg DAILY@06 PO 07/22/16 06:00 08/04/16 05:51 (Lopressor) 12.5 mg BID PO 07/21/16 21:00 Hold 07/31/16 09:30 (Pill Splitter) 1 ea UNSCH PRN OTHER 07/21/16 16:30 (NS Flush) 2 ml UNSCH PRN IV FLUSH 07/21/16 16:30 07/21/16 18:37 (NS Flush) 2 ml BID IV FLUSH 07/21/16 21:00 08/04/16 08:36 (Tylenol) 650 mg Q4H PRN PO 07/21/16 16:30 08/03/16 10:57 (Zofran Inj) 4 mg Q6H PRN IV 07/21/16 16:30 08/02/16 07:03 (Imodium) 2 mg Q6H PRN PO 07/27/16 09:15 07/30/16 02:27 Fluticasone Propionate 1 spray 1 spray BID NASAL 07/27/16 09:14 08/04/16 08:36 (Coumadin Consult Pharmacy) 0 ml @ 0 mls/hr UNSCH OTHER 07/31/16 11:45 (Coumadin) 5 mg DAILY@16 PO 07/31/16 16:00 Hold 07/31/16 16:31 (D50w (Vial) Inj) 25 ml UNSCH PRN IV PUSH 07/31/16 13:30 (Glucagon Inj) 1 mg UNSCH PRN OTHER 07/31/16 13:30 Insulin Human Regular 1 1 Q6H SQ 07/31/16 13:30 08/02/16 01:17 (NS 1000 ml Inj) 1,000 ml @ 0 mls/hr UNSCH PRN OTHER 07/31/16 14:45 Miscellaneous Information Patient in critical care unit? Ass... Q361D XX 08/01/16 20:45 08/01/16 20:42 (Chlorhexidine 2% Cloth) 3 pack DAILY@04 TOP 08/02/16 04:00 08/06/16 04:01 08/04/16 03:33 Chlorhexidine Gluconate 3 pack 3 pack UNSCH PRN TOP 08/01/16 20:45 08/06/16 20:37 (Argatroban-0.9% NS Inj) 250 ml @ 0 mls/hr TITRATE IV 08/02/16 04:30 Mupirocin 1 applic 1 applic BID NASAL 08/02/16 09:00 08/04/16 08:36 (Lr 1000 ml Inj) 1,000 ml @ 30 mls/hr Q24H IV 08/02/16 12:30 Fluconazole 200 mg 200 mg DAILY PO 08/03/16 11:00 08/04/16 08:37 Sodium Chloride 1,000 ml @ 0 mls/hr Q0M PRN IV 08/04/16 14:00 Sodium Chloride 1,000 ml @ 200 mls/hr Q5H PRN IV 08/04/16 14:00 (NS 1000 ml Inj) 1,000 ml @ 0 mls/hr Q0M PRN IV 08/04/16 14:00 (Mannitol Inj) 12.5 gm UNSCH PRN IV 08/04/16 14:00 (Albumin 25% Inj) 25 gm UNSCH PRN IV 08/04/16 14:00 08/04/16 15:24 (NS Flush) 5 ml UNSCH PRN IVF 08/04/16 14:00 (Heparin Inj) UNSCH PRN .XX 08/04/16 14:00 (Gentamicin (Dialysis) Inj) 20 mg UNSCH PRN IV 08/04/16 14:00 08/04/16 15:24 (Zofran Inj) 4 mg UNSCH PRN IV 08/04/16 14:00 (Tylenol) 650 mg UNSCH PRN PO 08/04/16 14:00 (Benadryl) 25 mg UNSCH PRN PO 08/04/16 14:00 (Nitrostat Sl) 0.4 mg UNSCH PRN SL 08/04/16 14:00 (Gelfoam 12 Mm/7 Mm Top) 1 foam UNSCH PRN TOP 08/04/16 14:00 (Dilaudid Pf Inj) 0.2 mg Q3H PRN IV PUSH 08/04/16 17:15 (Dilaudid Pf Inj) 0.5 mg Q3H PRN IV PUSH 08/04/16 17:15 (Ativan Inj) 0.5 mg Q2H PRN IV PUSH 08/04/16 17:15 (Ativan Inj) 1 mg Q2H PRN IV PUSH 08/04/16 17:15 (Levsin Inj) 0.25 mg Q6HR PRN IVP 08/04/16 17:30 (Audra Vasquez) Physical Exam General Appearance: No Acute Distress (Audra Vasquez) Pulmonary Resp Exam: Breath Sounds Equal, Diminished Breath Sounds (Audra Vasquez) Cardiology CV Exam: Regular, Normal Sinus Rhythm (Audra Vasquez) Gastrointestinal/Abdomen GI Exam: Distended GI Remarks Edema present lateral abdominal cohen (Audra Vasquez) Integumentary Skin Exam: Warm (Audra Vasquez) Extremeties Extremities Exam: Pitting Edema (3+ edema of extremities, edema scrotum. Edema dependent torso.), Dependent Edema Extremeties Remarks 2+ generalized including abdomen (Audra Vasquez) Neurologic Neuro Exam: Alert, Awake, Oriented (Audra Vasquez) Psychiatric Psych Exam: Appropriate Responses (Audra Vasquez) Assessment/Plan Discussed Condition With: Patient, Daughter Problem List: (1) Anasarca Plan: s/p iHD this AM. The patient has decided to transition to comfort care. His family is present in room and are agreeable to his wishes. Specifically when asked if he wanted to stop dialysis, he said "yes" and that he was tired. Will sign off. Medications should be adjusted for the patient's estimated GFR if clinically indicated. Avoid agents with significant potential for nephrotoxicity possible including NSAIDs for analgesia, iodine contrast agents. Gadolinium is contraindicated if the GFR is below 30. (2) CKD (chronic kidney disease) stage 3, GFR 30-59 ml/min Plan: May be related to nephrosclerosis of hypertension and aging. Also the patient may be predisposed to development of focal segmental glomerulosclerosis secondary to morbid obesity. I suspect that the GFR calculated is underestimating severity of the patient's renal clearance and this patient may even have end-stage renal disease. (3) CHF exacerbation (4) Pulmonary hypertension (5) Cardiomyopathy (6) HTN (hypertension) Plan: History of (Audra Vasquez) Plan The exam, history, and the medical decision-making described in the above note were completed with the assistance of the PA-C. I reviewed and agree with the findings presented. (No Rowan MD) Audra Vasquez Aug 04, 2016 17:49 No Rowan MD Aug 05, 2016 11:05
[2016-08-04] MEDS: HYDROmorphone HCL PF 1 MG/ML VIAL IV PUSH PRN (19:55)
[2016-08-05] VITALS: PULSE 107
[2016-08-05] MEDS: INSULIN NovoLIN REGULAR SUPPLEMENTAL SCALE SQ SCH ×2 (01:09→07:30)
[2016-08-05 02:00] VITALS: PULSE 109
[2016-08-05 04:00] VITALS: PULSE 105
[2016-08-05] MEDS: CHLORHEXIDINE GLUCONATE 2 % 1 PACK (2 CLOTHS)(taper/protocol) TOP SCH (04:00)
[2016-08-05] MEDS: HYDROmorphone HCL PF 1 MG/ML VIAL IV PUSH PRN ×2 (04:33→10:56)
[2016-08-05] MEDS: SODIUM CHLORIDE 0.9% FLUSH 5 ML FLUSH IV FLUSH PRN (04:33)
[2016-08-05] MEDS: LEVOTHYROXINE SODIUM 25 MCG TAB PO SCH (05:46)
[2016-08-05 05:56] LABS: AUTOMATED NEUTROPHIL # 10.5 TH/MM3 (1.8-7.7); BASOPHIL # 0.1 TH/MM3 (0-0.2); BASOPHIL % 0.9 % (0.0-2.0); EOSINOPHIL # 0.3 TH/MM3 (0-0.4); EOSINOPHIL % 1.8 % (0.0-4.0); HEMATOCRIT 37.3 % (39.0-51.0); LYMPH % 16.5 % (9.0-44.0); LYMPHOCYTE # 2.6 TH/MM3 (1.0-4.8); MEAN CELL VOLUME 88.3 FL (80.0-100.0); MEAN CORPUSCULAR HEMOGLOBIN 26.8 PG (27.0-34.0); MEAN CORPUSCULAR HGB CONC 30.3 % (32.0-36.0); MONO % 15.1 % (0.0-8.0); NEUT % 65.7 % (16.0-70.0); PLATELET COUNT 100 TH/MM3 (150-450); RED BLOOD COUNT 4.23 MIL/MM3 (4.50-5.90); RED CELL DISTRIBUTION WIDTH 18.5 % (11.6-17.2)
[2016-08-05 06:00] VITALS: PULSE 114
[2016-08-05 06:08] LABS: HEMO FLAGS AUTO DIFF; INTERNATIONAL NORMALIZED RATIO 2.2 RATIO
[2016-08-05 06:30] LABS: ALKALINE PHOSPHATASE 264 U/L (45-117); ALT (GPT) 94 U/L (12-78); ANION GAP 10 MEQ/L (5-15); AST (GOT) 118 U/L (15-37); BICARBONATE 23.6 MEQ/L (21.0-32.0); BLOOD UREA NITROGEN 36 MG/DL (7-18); CHLORIDE 104 MEQ/L (98-107); GLOMERULAR FILTRATION RATE 23 ML/MIN (>89); MAGNESIUM 2.2 MG/DL (1.5-2.5); POTASSIUM 4.4 MEQ/L (3.5-5.1); SODIUM (NA) 138 MEQ/L (136-145); TOTAL BILIRUBIN ADULT 0.7 MG/DL (0.2-1.0)
--- NOTE | 2016-08-05 06:43 | RADRPT ---
EXAM DATE/TIME: 08/05/2016 05:28 [facility] COMPARISON: CHEST SINGLE AP, July 31, 2016, 11:29. INDICATIONS : Follow up respiratory failure. MEDICAL HISTORY : Chronic obstructive pulmonary disease. Atrial fibrillation. SURGICAL HISTORY : Stent placement. ENCOUNTER: Subsequent ACUITY: 2 weeks PAIN SCORE: Non-responsive. LOCATION: chest FINDINGS: There is slight interstitial process in the right lung most likely pulmonary edema. Right IJ line is present with tip overlapping the expected region of the SVC. There is dense opacification of the left mid and lower lung and not changed. CONCLUSION: No change in dense opacification of the left lung and probable mild edema in the right lung. Colby Hein MD on August 05, 2016 at 6:41 Board Certified Radiologist. This report was verified electronically.
[2016-08-05 08:00] VITALS: BP 96/70; PULSE 103; RESP 15; TEMP 97.2; O2SAT 93
[2016-08-05 08:14] VITALS: O2SAT 94
[2016-08-05] MEDS: MUPIROCIN 2% OINT 1 APPLIC/GM SYR NASAL SCH (08:27)
[2016-08-05] MEDS: SODIUM CHLORIDE 0.9% FLUSH 5 ML FLUSH IV FLUSH SCH (08:27)
[2016-08-05] MEDS: FLUTICASONE PROPIONATE 50 MCG/ACT 16 GM NASAL SPRAY NASAL SCH (08:28)
[2016-08-05] MEDS: FLUCONAZOLE 200 MG TAB PO SCH (08:28)
[2016-08-05] MEDS: DOCUSATE SODIUM 100 MG CAP PO SCH (08:28)
[2016-08-05 09:06] LABS: BANDS 16 % (0-6); CORRECTED NUCLEATED RBC 1 /100 WBC (0-0); EOSINOPHILS 2 % (0-4); METAMYELOCYTES 2 % (0-1); MYELOCYTES 6 % (0-0); NEUTROPHIL # MANUAL DIFF 11.2 TH/MM3 (1.8-7.7); POLYS (SEG NEUTROPHILS) 46 % (16-70); SCAN/DIFF FINAL DIFF MANUAL; WBC DIFF SAMPLE 100
[2016-08-05 09:07] LABS: PLATELET ESTIMATE SMEAR LOW (NORMAL); PLATELET MORPHOLOGY NORMAL (NORMAL)
[2016-08-05 09:12] LABS: OVALOCYTES 2+ (NORMAL)
[2016-08-05] MEDS: LACTATED RINGER'S 1000 ML IV SCH (11:59)
--- NOTE | 2016-08-05 12:10 | HHI.DS ---
Discharge Summary Admission Date Jul 21, 2016 at 16:35 Discharge Date: Aug 05, 2016 Admitting Diagnosis Hospital Acquired Pneumonia, Chronic Respiratory Failure (1) Hospital-acquired pneumonia ICD Code: J18.9 Diagnosis: Principal (2) Acute and chronic respiratory failure ICD Code: J96.20 Diagnosis: Principal (3) CHF exacerbation ICD Code: I50.9 Diagnosis: Principal (4) Anasarca ICD Code: R60.1 Diagnosis: Principal (5) Pulmonary hypertension ICD Code: I27.2 Diagnosis: Principal (6) Cardiomyopathy ICD Code: I42.9 Diagnosis: Principal (7) CKD (chronic kidney disease) stage 3, GFR 30-59 ml/min ICD Code: N18.3 Diagnosis: Principal (8) Morbid obesity with BMI of 60.0-69.9, adult ICD Code: E66.01 Diagnosis: Principal Procedures Right IJ HD catheter Brief History 65-year-old male with history of CAD with stents, atrial fibrillation on Coumadin, CHF, HTN, CKD stage III, NINO on BiPAP at night, chronic respiratory failure on home O2, presents from [facility] for worsening shortness of breath , weight gain, and decreased O2 saturations. Patient was recently admitted to [facility] on 06/29/16 for pneumonia and acute renal failure. The patient reports he was treated with IV antibiotics, he refused dialysis for his acute renal failure, and he was discharged back to [facility]. He overall has felt well however states over the past 3 weeks he has noticed worsening weight gain, previously weighed 365, now over 400 pounds. He started to notice worsening shortness of breath 2 days ago. Denies any fevers/chills, cough, or chest pains. His O2 saturation at the [facility] was around 90% over the past few days, when normally it is >95%. He asked to be admitted to [place] as he does not want to go to [facility]. Since his arrival to the ER, CXR showed LLL opacity, CT chest showed LLL consolidation with b/l pleural effusions. He has been given IV Zosyn, Vanco, and Levaquin for hospital acquired pneumonia. He has been placed on his own bipap with O2 saturations now 100%. The patient denies any diagnosis of lung disease, when asked about COPD, he states "not really". He has only been seeing a adult manager at [facility], does not recall the name. He also does not know who is ship worker is because he states it keeps changing. CBC/BMP: 08/05/16 0422 08/05/16421 Significant Findings Laboratory Tests Test 08/02/16 08/03/16 08/03/16 08/03/16 19:01 02:42 03:44 10:15 Blood Urea Nitrogen 33 MG/DL (7-18) 30 MG/DL (7-18) 30 MG/DL (7-18) 30 MG/DL (7- 18) Creatinine 2.25 MG/DL 2.18 MG/DL 2.14 MG/DL 2.08 MG/DL (0.60-1.30) (0.60-1.30) (0.60-1.30) (0.60-1.30) Estimat Glomerular Filtration 30 ML/MIN (>89) 31 ML/MIN (>89) 31 ML/MIN (>89) 32 ML/MIN (>89) Rate Calcium Level 8.3 MG/DL 8.4 MG/DL 8.2 MG/DL 8.4 MG/DL (8.5-10.1) (8.5-10.1) (8.5-10.1) (8.5-10.1) Protein Corrected Calcium 8.3 MG/DL 8.4 MG/DL (8.5-10.1) (8.5-10.1) Chloride Level 109 MEQ/L 108 MEQ/L (98-107) (98-107) Random Glucose 131 MG/DL 111 MG/DL 126 MG/DL (74-106) (74-106) (74-106) Prothrombin Time 43.8 SEC (9.8-11.6) Test 08/04/16 08/05/16 03:58 04:22 Red Blood Count 4.17 MIL/MM3 4.23 MIL/MM3 (4.50-5.90) (4.50-5.90) Hemoglobin 11.3 GM/DL 11.3 GM/DL (13.0-17.0) (13.0-17.0) Hematocrit 36.8 % 37.3 % (39.0-51.0) (39.0-51.0) Mean Corpuscular Hemoglobin 30.6 % 30.3 % Concent (32.0-36.0) (32.0-36.0) Red Cell Distribution Width 18.5 % 18.5 % (11.6-17.2) (11.6-17.2) Platelet Count 91 TH/MM3 100 TH/MM3 (150-450) (150-450) Band Neutrophils % 14 % (0-6) 16 % (0-6) Monocytes % 10 % (0-8) 10 % (0-8) Myelocytes 5 % (0-0) 6 % (0-0) Promyelocytes 1 % (0-0) Nucleated Red Blood Cells 7 /100 WBC 1 /100 WBC (0-0) (0-0) Platelet Estimate LOW (NORMAL) LOW (NORMAL) Polychromasia 2.0 % (0.0-1.9) Ovalocytes 1+ (NORMAL) 2+ (NORMAL) Prothrombin Time 32.8 SEC 25.0 SEC (9.8-11.6) (9.8-11.6) Blood Urea Nitrogen 35 MG/DL (7-18) 36 MG/DL (7-18) Creatinine 2.71 MG/DL 2.80 MG/DL (0.60-1.30) (0.60-1.30) Estimat Glomerular Filtration 24 ML/MIN (>89) 23 ML/MIN (>89) Rate Random Glucose 107 MG/DL (74-106) Aspartate Amino Transf 114 U/L (15-37) 118 U/L (15-37) (AST/SGOT) Alanine Aminotransferase 83 U/L (12-78) 94 U/L (12-78) (ALT/SGPT) Alkaline Phosphatase 242 U/L 264 U/L (45-117) (45-117) Albumin 2.9 GM/DL (3.4-5.0) White Blood Count 16.0 TH/MM3 (4.0-11.0) Mean Corpuscular Hemoglobin 26.8 PG (27.0-34.0) Monocytes (%) (Auto) 15.1 % (0.0-8.0) Neutrophils # (Auto) 10.5 TH/MM3 (1.8-7.7) Monocytes # (Auto) 2.4 TH/MM3 (0-0.9) Neutrophils # (Manual) 11.2 TH/MM3 (1.8-7.7) Metamyelocytes 2 % (0-1) Imaging Last Impressions Chest X-Ray 08/05/16 0600 Signed Impressions: Service Date/Time: Friday, August 05, 2016 05:28 - CONCLUSION: No change in dense opacification of the left lung and probable mild edema in the right lung. Colby Hein MD Renal Ultrasound 07/26/16 0000 Signed Impressions: Service Date/Time: Tuesday, July 26, 2016 11:33 - CONCLUSION: Limited evaluation of the kidneys secondary to patient body habitus and nonvisualization of the left kidney. The right kidney cortex appears mildly thinned and increased in echotexture which may reflect chronic medical renal disease. No evidence of hydronephrosis. Farzaneh White MD Chest CT 07/21/16 1428 Signed Impressions: Service Date/Time: July 15:15 - CONCLUSION: 1. Dense consolidation of the left lower lobe. 2. Small bilateral effusions. 3. 3.0 x 1.9 cm pleural-based nodule on the left. This is indeterminate by CT imaging. No hilar or mediastinal adenopathy is seen. 4. There is fluid in the left upper quadrant surrounding the spleen. The spleen appears mildly enlarged. 5. Advanced cardiomegaly. Girma Metzger MD PE at Discharge GENERAL: 64-year-old male, critically ill currently on nonrebreather mask SKIN: Warm and dry. Extensive anasarca to bilateral lower extremities and upper x-rays. Extensive bruising to bilateral lower extremities. Left greater than right. HEAD: Normocephalic. EYES: No scleral icterus. No injection or drainage. NECK: Supple, trachea midline. No JVD or lymphadenopathy. Vas-Cath in place right neck CARDIOVASCULAR: Irregular Regular rate and rhythm without murmurs, gallops, or rubs. RESPIRATORY: Breath sounds equal bilaterally. No accessory muscle use. GASTROINTESTINAL: Obese patient, Abdomen , non-tender, distended. MUSCULOSKELETAL: Anasarca. Peripheral edema bilateral lower extremity. BACK: Nontender without obvious deformity. No CVA tenderness. Transfer Summary 1Acute resp failure 2) Acute on chronic renal failure 3) CHF/Cardiomyopathy 4)Mod-severe pulm HTN with PAP 75mmHg 5)CAD 6)Afib on Coumadin 7)Hx HTN 8)Anemia, thrombocytopenia 9)Hypothyroidism 10)Morbid obesity, NINO 11) UTI Plan Neuro: Awake, avoid sedatives Pulm: Wean down oxygen as jonel keep sat >92% Bronchodilators, NIPPV PRN during day and nocturnally qhs for NINO CV:Monitor HR and BP keep MAP>65mmHg. Echo showed EF 45-50%, PAP 75mmHg Fluid removal with CVVHD / Renal: Monitor renal function, I/O's, avoid nephrotoxins Renal Dr.. Dunn- on CVVHD per renal for fluid removal. GI: On PO diet ID: Started Rocephin IV, diflucan PO on 08/03 for UTI with jasbir/ proteus. Heme: Monitor CBC. On coumadin (held due to elevated PT/INR). Off argatroban for CVVHD. Endo: SSI if needed for glycemic control GI prophylaxis DVT prophylaxis - orogastric been drip/Coumadin, Coumadin on hold for thrombocytopenia/ elevated INR. Lines: Right IJ vascath placed 07/31, peripheral IV's Palliative care following. Decision to transfer to [facility] today. level 3 Hospital Course I was consulted by Dr. Woo for a patient transfer to the ICU for a bumex infusion. In brief, this is a 65yM with long medical history, including CAD with stents, atrial fibrillation on Coumadin, CHF, HTN, CKD stage III, NINO on BiPAP at night , chronic respiratory failure on home O2, who initially presented with hypoxia, thought to be HCAP, CHF exacerbation, and new acute on chronic kidney injury. I discussed the case with Dr. Woo and nephrology feels that the next step in management of the patient is to transition to a bumex infusion prior to instituting possible renal replacement therapy. Thus, ICU admission is required for continuous bumex infusion. I have briefly evaluated the patient and my pertinent findings are: morbidly obese gentleman lying in bed on BiPAP, fio2 50%, 12/5. somnolent but arousable. Mallampatti class IV, short thyromental distance, large neck circumference. distant breath sounds and muffled cardiac sounds due to morbid obesity, but clear to auscultation and cardiac sounds without overt appreciable murmurs. he is not tachypneic and not in distress. K 3.5, serum bicarb 27. CXR demonstrates dense LLL consolidation. I agree with Dr. Woo that the patient meets ICU criteria for continuous bumex infusion. I agree with the anticipated plan of bumex infusion with intermittent prn BiPAP (home BiPAP use), abx, and oxygen as needed. In my brief review of the medical record, I agree with nephrology that there is no current indication for emergent renal replacement therapy. I did talk with Dr. Woo that given his echo findings of right ventricular dysfunction and severe pulmonary hypertension with NINO, he is likely to have early cor pulmonale, and I would recommend being aggressive with early renal replacement therapy if no improvement with bumex infusion. Per the documentation, the patient is a DNR, and Dr. Woo is re-confirming whether or not he would want to be DNI or intubated. He would be an anticipated difficult mask ventilation and difficult intubation. 07/31 Patient is on partial non rebreather, renal function worse today with Cr: 3.27 from 2.76 patient to start CVVHD per renal. 08/01 Patient was on BIPAP overnight 06/20 with 40% FIO2. More awake and alert today. CVVHD started yesterday however it was clotted off overnight. 08/02: On partial rebreather, remains on CVVHD. Wishes to eat. 08/03: On BiPAP overnight. Switching to partial rebreather in the morning. Remains on CRRT. 5 L negative since yesterday. 08/04: On BiPAP overnight. Partial rebreather this morning. 08/05: Currently on partial nonrebreather. Plan is to transfer to [facility] today. Pt Condition on Discharge: Guarded Discharge Disposition: Hospice/ Home Discharge Instructions DIET: Follow Instructions for: As Tolerated, No Restrictions Activities you can perform: Continue Bedrest Activities to Avoid: Strenuous Activity Shant Estrada MD Aug 05, 2016 12:10
[2016-08-05] MEDS ORDERED: DIFL200T PO (12:18)
[2016-08-05] MEDS ORDERED: HYOS.5P IVP (12:18)
[2016-08-05] MEDS ORDERED: ACET325T PO (12:18)
[2016-08-05] MEDS ORDERED: HYDR1INJ IV PUSH (12:18)
[2016-08-05] MEDS ORDERED: FLUT50SP NASAL (12:18)
[2016-08-05] MEDS ORDERED: IPRASOL NEB (12:18)
[2016-08-05] MEDS ORDERED: ONDA4INJ2 IV (12:18)
[2016-08-05] MEDS ORDERED: LEVO25TA4 PO (12:18)
== END 2016-08-05 12:40 | disposition hospice, inpatient (51) | DRG 291 ==
LOC: NEDAMB 11:46 → NEDA 16:35 → NEDH 16:35 → UNDOADMIN 16:35 → NEDH 23:22 → HOCB 07-22 18:17 → N06B 07-22 22:31 → HIME 07-30 17:25
PROVIDERS: ADMIT Internal Medicine Critical Care Medicine; ATTEND Internal Medicine Critical Care Medicine
PROC: 5A09357 Assistance with Respiratory Ventilation, Less than 24 Consecutive Hours, Continuous Positive Airway Pressure (ICD-10-PCS; principal; 2016-07-21)
PROC: 02HV33Z Insertion of Infusion Device into Superior Vena Cava, Percutaneous Approach (ICD-10-PCS; 2016-07-31)
PROC: B543ZZA Ultrasonography of Right Jugular Veins, Guidance (ICD-10-PCS; 2016-07-31)
PROC: 5A1D00Z (ICD-10-PCS; 2016-07-31)
DX: I13.2 Hypertensive heart and chronic kidney disease with heart failure and with stage 5 chronic kidney disease, or end stage renal disease (principal); J96.21 Acute and chronic respiratory failure with hypoxia; J18.9 Pneumonia, unspecified organism; N17.9 Acute kidney failure, unspecified; N18.6 End stage renal disease; I95.9 Hypotension, unspecified; E46 Unspecified protein-calorie malnutrition; I42.9 Cardiomyopathy, unspecified; J44.0 Chronic obstructive pulmonary disease with (acute) lower respiratory infection; D69.6 Thrombocytopenia, unspecified; I27.2 Other secondary pulmonary hypertension; I27.81 Cor pulmonale (chronic); I50.23 Acute on chronic systolic (congestive) heart failure; E66.2 Morbid (severe) obesity with alveolar hypoventilation; Z68.44 Body mass index [BMI] 60.0-69.9, adult; B37.49 Other urogenital candidiasis; N39.0 Urinary tract infection, site not specified; Z51.5 Encounter for palliative care; Z99.81 Dependence on supplemental oxygen; I25.10 Atherosclerotic heart disease of native coronary artery without angina pectoris; D64.9 Anemia, unspecified; E03.9 Hypothyroidism, unspecified; I48.2 Chronic atrial fibrillation; R91.1 Solitary pulmonary nodule; H91.90 Unspecified hearing loss, unspecified ear; M19.90 Unspecified osteoarthritis, unspecified site; G89.29 Other chronic pain; M54.9 Dorsalgia, unspecified; I07.1 Rheumatic tricuspid insufficiency; I87.8 Other specified disorders of veins; T50.2X5A Adverse effect of carbonic-anhydrase inhibitors, benzothiadiazides and other diuretics, initial encounter; B96.4 Proteus (mirabilis) (morganii) as the cause of diseases classified elsewhere; Y95 Nosocomial condition; Z66 Do not resuscitate; Z74.01 Bed confinement status; Z79.01 Long term (current) use of anticoagulants; Z86.73 Personal history of transient ischemic attack (TIA), and cerebral infarction without residual deficits; Z87.891 Personal history of nicotine dependence; Z88.1 Allergy status to other antibiotic agents; Z88.8 Allergy status to other drugs, medicaments and biological substances; Z95.5 Presence of coronary angioplasty implant and graft
CPT/HCPCS: 36556; 36600; 71010; 71250; 76775; 76937; 80048; 80053; 80076; 81001; 82306; 82784; 82805; 82948; 83605; 83735; 83880; 83883; 83970; 84155; 84165; 84450; 84460; 84484; 85007; 85025; 85027; 85610; 85730; 86021; 86160; 86334; 86803; 87040; 87077; 87086; 87106; 87186; 87340; 87641; 90935; 93005; 93306; 94003; 94640; 94664; 96374; 96375; J0282; J0610; J0883; J1170; J1205; J1580; J1940; J1956; J2060; J2405; J2543; J3370; J7050; J7060; P9047